=== PATIENT | female | born 1945 | race Caucasian/White ===

== ENCOUNTER 2021-01-25 16:40 | Inpatient (IN) ==
[2021-01-25] MEDS ORDERED: POTASSIUM CHLORIDE 20 MEQ TABLET PO PRN ×2 (16:47)
[2021-01-25] MEDS ORDERED: ACETAMINOPHEN 325 MG TABLET PO PRN (16:47)
[2021-01-25] MEDS ORDERED: IPRATROPIUM/ALBUTEROL 3 ML AMPUL.NEB NEB PRN (16:47)
[2021-01-25] MEDS ORDERED: MAGNESIUM SULFATE 2 GM/50 ML BAG IV PRN (16:47)
[2021-01-25] MEDS ORDERED: SENNOSIDES 1 TABLET PO PRN (16:47)
[2021-01-25] MEDS ORDERED: POTASSIUM CHLORIDE 40 MEQ in DEXTROSE 5% IN WATER 500 ML IV PRN (16:47)
[2021-01-25] MEDS ORDERED: POLYETHYLENE GLYCOL 3350 17 GM PACKET PO PRN (16:47)
--- NOTE | 2021-01-25 16:47 | Internal Med History&Physical ---
HPI History of Present Illness Patient information: Note initiated : 01/25/21 at 4:45 pm Service Date, if different from initiated Date: [] Patient: Marilyn Dunbar a 75 y/o F admitted on for Nausea/vomiting. Chief Complaint: [] History of present illness: Ms. Dunbar is a 75 year old F Presented to [facility] this morning with nausea vomiting. No diarrhea. No coughing chest pain shortness of breath. No altered mental status. Extensive work-up in the ED undertaken with the only lab abnormalities being a mild leukocytosis of 13 and an elevated lactate of about 2.9-3.0. CTA of the chest as well as CT of the abdomen pelvis was unremarkable for any acute pathology. Vital signs stable. Mildly hypoxic at 88 placed on oxygen in the ED. Patient states that she got back from trip from [place] on the and she has been exhausted since then. Yesterday evening she had a poor appetite but otherwise felt okay. This morning she woke up she had a bowel movement and then started on some nausea vomiting. She denies stomach pain. Denies fever chills. 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 Review of Systems: Pertinent positives as above. Denies headache/fever/chills/chest or abdominal pain/cough/dyspnea/diarrhea. 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 (Acute) Muscle weakness of left upper extremity (Chronic) Fatigue (Chronic) Arthralgia (Chronic) Hyperlipidemia (Chronic) Vitamin D deficiency (Chronic) Bradycardia (Chronic) Arrhythmia (Chronic) Encounter for long-term (current) use of other medications (Chronic) GERD (gastroesophageal reflux disease) (Chronic) Varicose veins of other specified sites (Chronic) Hypothyroidism (Chronic) Cyst of left breast (Chronic) Cervical strain (Chronic) Smoker (Chronic) Diverticulitis (Chronic) Adenocarcinoma, colon (Chronic) Insomnia (Chronic) Carcinoma of colon (Chronic) Encounter for long-term (current) use of medications (Chronic) Cerebral infarction due to unspecified occlusion or stenosis of right middle cerebral artery (Chronic) HTN (hypertension) (Chronic) Chronic kidney disease (CKD), stage II (mild) (Chronic) Allergic rhinitis (Chronic) Numbness and tingling sensation of skin (Chronic) Depression (Chronic) Stress (Chronic) Benign neoplasm of transverse colon (Chronic) Ankle pain, left (Chronic) Weakness of left side of body (Chronic) Cataract, secondary obscuring vision (Chronic) Primary open-angle glaucoma, bilateral, mild stage (Chronic) Other localized visual field defect, bilateral (Chronic) Neuropathy (Chronic) Pseudophakia (Chronic) Spasticity (Chronic) Medical History (Updated 10/20/20 @ 20:49 by ED Ahn) Adenocarcinoma, colon Allergic rhinitis Ankle pain, left Arrhythmia Arthralgia Benign neoplasm of transverse colon Bradycardia Carcinoma of colon Cataract, secondary obscuring vision bilateral Cerebral infarction due to unspecified occlusion or stenosis of right middle cerebral artery Cervical strain with radiculopathy Chronic kidney disease (CKD), stage II (mild) Cyst of left breast Depression Diverticulitis Encounter for long-term (current) use of medications Encounter for long-term (current) use of other medications Fatigue GERD (gastroesophageal reflux disease) History of stroke (~10/2016) Right side stroke with left sided weakness in arm and leg HTN (hypertension) Hyperlipidemia Hypothyroidism Insomnia Neuropathy Numbness and tingling sensation of skin Other localized visual field defect, bilateral Primary open-angle glaucoma, bilateral, mild stage Pseudophakia Smoker Spasticity Stress Varicose veins of other specified sites Vitamin D deficiency Weakness of left side of body Surgical History History of bunionectomy of left great toe (~03/2011) Hx of section Hx of colonoscopy 01/10/2013 - lesions of colon, CT scan at [facility] 02/16/2018 - Adenomatous transverse colon polyp, repeat 3 yrs Hx of foot surgery (~11/2010) Left foot surgery, left sciatic pain radiates to left leg, after surgery 11/19 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 Family History Sister Cancer Mother Dementia Heart failure Social History marital status: MEDS/ALLERGIES Home Medications and Allergies Home Medications Medication Instructions Recorded Confirmed Type acetaminophen 500 mg capsule 500 mg PO QID PRN cap 03/17/19 10/15/20 History diclofenac sodium 1 % topical gel 2 g TOPICAL QID 03/17/19 10/15/20 History travoprost 0.004 % eye drops 1 drp OPHTHALMIC QHS ml 03/17/19 10/15/20 History benzonatate 100 mg capsule 200 mg PO TID #60 cap 09/08/19 10/15/20 Rx baclofen 20 mg tablet 20 mg PO BID #60 tab 12/25/19 10/15/20 Rx clopidogrel 75 mg tablet 75 mg PO QDAY #90 tab 03/13/20 10/15/20 Rx alprazolam 0.25 mg tablet 0.25 mg PO Q8H PRN #30 tab 06/28/20 10/15/20 Rx citalopram 20 mg tablet See Rx Instructions .ROUTE 07/08/20 10/15/20 Rx .COMPLEX #180 tab albuterol sulfate 90 mcg/actuation 2 puff INHALATION QID PRN #8 g 10/15/20 10/15/20 Rx aerosol inhaler lorazepam 0.5 mg tablet 1 mg PO QHS PRN #30 tab 10/15/20 10/15/20 Rx tramadol 50 mg tablet 50 mg PO QID #120 tab 10/15/20 10/15/20 Rx atorvastatin 20 mg tablet See Rx Instructions .ROUTE 11/27/20 Rx .COMPLEX #90 tab losartan 50 mg tablet See Rx Instructions .ROUTE 11/27/20 Rx .COMPLEX #90 tab aripiprazole 2 mg tablet See Rx Instructions .ROUTE 12/04/20 Rx .COMPLEX #30 tab gabapentin 600 mg tablet See Rx Instructions .ROUTE 01/07/21 Rx .COMPLEX #120 tab liothyronine 5 mcg tablet See Rx Instructions .ROUTE 01/10/21 Rx .COMPLEX #90 tab Allergies Allergy/AdvReac Type Severity Reaction Status Date / Time No Known Drug Allergies Allergy Verified 10/15/20 09:05 EXAM Constitutional Exam: General: Alert, Awake, No acute Distress Eyes/N/T: EOMI, PERRL, dry MM Head/Neck: neck supple, normocephalic atraumatic CV: RRR, No murmurs, normal s1/s2 Pulm: Clear b/l, no wheezing/rhonchi/rales Abd: soft, nontender, +BS x4 Ext: no clubbing/cyanosis/edema Neuro: Alert, CN 2-12 grossly intact, chronic left hemiplegia Skin: warm/dry A/P Narrative A/P Narrative: A: *N/V: Suspect acute gastroenteritis *Volume depletion: *Mild lactic acidosis: 2/2 above -UA with ketones *Hypoxia, mild: possible that she aspirated during n/v -CTA chest no acute path *CKD II: *Chr pain/neuropathy: *h/o CVA w/ residual Left hemiplegia: *Depression/anxiety: *HTN: *Hypothyroidism: TSH 8.6, pending free T4 P: -IVF, f/u [place] -hold abx for now, pending man diff/pct/BC - -Free T4 -cont Statin/plavix -cont psych meds -cont losartan -PT/OT -ppx: Lovenox Time Spent With Patient Time: Total time spent is greater than 50% in coordination of care (as documented) at patient's floor/unit and/or counseling patient:
[2021-01-25] MEDS ORDERED: 0.9 % SODIUM CHLORIDE 1,000 ML IV SCH (17:00)
[2021-01-25] MEDS ORDERED: diphenhydrAMINE 50 MG/ML VIAL IV PRN (18:18)
[2021-01-25] MEDS ORDERED: METOCLOPRAMIDE 10 MG/2 ML VIAL IV PRN (18:18)
[2021-01-25] MEDS ORDERED: LORazepam 2 MG/ML VIAL IV PRN (18:18)
--- NOTE | 2021-01-25 18:20 | Internal Med History&Physical ---
HPI History of Present Illness Patient information: Note initiated : 01/25/21 at 6:20 pm Service Date, if different from initiated Date: [] Patient: Marilyn Dunbar a 75 y/o F admitted on 01/25/21 for Nausea/vomiting. Chief Complaint: [] History of present illness: Ms. Dunbar is a 75 year old F History of present illness: Ms. Dunbar is a 75 year old F Presented to [facility] this morning with nausea vomiting. No diarrhea. No coughing chest pain shortness of breath. No altered mental status. Extensive work-up in the ED undertaken with the only lab abnormalities being a mild leukocytosis of 13 and an elevated lactate of about 2.9-3.0. CTA of the chest as well as CT of the abdomen pelvis was unremarkable for any acute pathology. Vital signs stable. Mildly hypoxic at 88 placed on oxygen in the ED. Patient states that she got back from trip from [place] on the and she has been exhausted since then. Yesterday evening she had a poor appetite but otherwise felt okay. This morning she woke up she had a bowel movement and then started on some nausea vomiting. She denies stomach pain. Denies fever chills. 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 Review of Systems: Pertinent positives as above. Denies headache/fever/chills/chest or abdominal pain/cough/dyspnea/diarrhea. 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 (Acute) Muscle weakness of left upper extremity (Chronic) Fatigue (Chronic) Arthralgia (Chronic) Hyperlipidemia (Chronic) Vitamin D deficiency (Chronic) Bradycardia (Chronic) Arrhythmia (Chronic) Encounter for long-term (current) use of other medications (Chronic) GERD (gastroesophageal reflux disease) (Chronic) Varicose veins of other specified sites (Chronic) Hypothyroidism (Chronic) Cyst of left breast (Chronic) Cervical strain (Chronic) Smoker (Chronic) Diverticulitis (Chronic) Adenocarcinoma, colon (Chronic) Insomnia (Chronic) Carcinoma of colon (Chronic) Encounter for long-term (current) use of medications (Chronic) Cerebral infarction due to unspecified occlusion or stenosis of right middle cerebral artery (Chronic) HTN (hypertension) (Chronic) Chronic kidney disease (CKD), stage II (mild) (Chronic) Allergic rhinitis (Chronic) Numbness and tingling sensation of skin (Chronic) Depression (Chronic) Stress (Chronic) Benign neoplasm of transverse colon (Chronic) Ankle pain, left (Chronic) Weakness of left side of body (Chronic) Cataract, secondary obscuring vision (Chronic) Primary open-angle glaucoma, bilateral, mild stage (Chronic) Other localized visual field defect, bilateral (Chronic) Neuropathy (Chronic) Pseudophakia (Chronic) Spasticity (Chronic) Medical History (Updated 10/20/20 @ 20:49 by ED Ahn) Adenocarcinoma, colon Allergic rhinitis Ankle pain, left Arrhythmia Arthralgia Benign neoplasm of transverse colon Bradycardia Carcinoma of colon Cataract, secondary obscuring vision bilateral Cerebral infarction due to unspecified occlusion or stenosis of right middle cerebral artery Cervical strain with radiculopathy Chronic kidney disease (CKD), stage II (mild) Cyst of left breast Depression Diverticulitis Encounter for long-term (current) use of medications Encounter for long-term (current) use of other medications Fatigue GERD (gastroesophageal reflux disease) History of stroke (~10/2016) Right side stroke with left sided weakness in arm and leg HTN (hypertension) Hyperlipidemia Hypothyroidism Insomnia Neuropathy Numbness and tingling sensation of skin Other localized visual field defect, bilateral Primary open-angle glaucoma, bilateral, mild stage Pseudophakia Smoker Spasticity Stress Varicose veins of other specified sites Vitamin D deficiency Weakness of left side of body Surgical History History of bunionectomy of left great toe (~03/2011) Hx of section Hx of colonoscopy 01/10/2013 - lesions of colon, CT scan at [facility] 02/16/2018 - Adenomatous transverse colon polyp, repeat 3 yrs Hx of foot surgery (~11/2010) Left foot surgery, left sciatic pain radiates to left leg, after surgery 11/19 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 Family History Sister Cancer Mother Dementia Heart failure Social History marital status: MEDS/ALLERGIES Home Medications and Allergies Home Medications Medication Instructions Recorded Confirmed Type acetaminophen 500 mg capsule 500 mg PO QID PRN cap 03/17/19 10/15/20 History diclofenac sodium 1 % topical gel 2 g TOPICAL QID 03/17/19 10/15/20 History travoprost 0.004 % eye drops 1 drp OPHTHALMIC QHS ml 03/17/19 10/15/20 History benzonatate 100 mg capsule 200 mg PO TID #60 cap 09/08/19 10/15/20 Rx baclofen 20 mg tablet 20 mg PO BID #60 tab 12/25/19 10/15/20 Rx clopidogrel 75 mg tablet 75 mg PO QDAY #90 tab 03/13/20 10/15/20 Rx alprazolam 0.25 mg tablet 0.25 mg PO Q8H PRN #30 tab 06/28/20 10/15/20 Rx citalopram 20 mg tablet See Rx Instructions .ROUTE 07/08/20 10/15/20 Rx .COMPLEX #180 tab albuterol sulfate 90 mcg/actuation 2 puff INHALATION QID PRN #8 g 10/15/20 10/15/20 Rx aerosol inhaler lorazepam 0.5 mg tablet 1 mg PO QHS PRN #30 tab 10/15/20 10/15/20 Rx tramadol 50 mg tablet 50 mg PO QID #120 tab 10/15/20 10/15/20 Rx atorvastatin 20 mg tablet See Rx Instructions .ROUTE 11/27/20 Rx .COMPLEX #90 tab losartan 50 mg tablet See Rx Instructions .ROUTE 11/27/20 Rx .COMPLEX #90 tab aripiprazole 2 mg tablet See Rx Instructions .ROUTE 12/04/20 Rx .COMPLEX #30 tab gabapentin 600 mg tablet See Rx Instructions .ROUTE 01/07/21 Rx .COMPLEX #120 tab liothyronine 5 mcg tablet See Rx Instructions .ROUTE 01/10/21 Rx .COMPLEX #90 tab Allergies Allergy/AdvReac Type Severity Reaction Status Date / Time No Known Drug Allergies Allergy Verified 10/15/20 09:05 EXAM Constitutional Exam: General: Alert, Awake, No acute Distress Eyes/N/T: EOMI, PERRL, dry MM Head/Neck: neck supple, normocephalic atraumatic CV: RRR, No murmurs, normal s1/s2 Pulm: Clear b/l, no wheezing/rhonchi/rales Abd: soft, nontender, +BS x4 Ext: no clubbing/cyanosis/edema Neuro: Alert, CN 2-12 grossly intact, chronic left hemiplegia Skin: warm/dry A/P Narrative A/P Narrative: A: *N/V: Suspect acute gastroenteritis *Volume depletion: *Mild lactic acidosis: 2/2 above -UA with ketones *Hypoxia, mild: possible that she aspirated during n/v -CTA chest no acute path *CKD II: *Chr pain/neuropathy: *h/o CVA w/ residual Left hemiplegia: *Depression/anxiety: *HTN: *Hypothyroidism: TSH 8.6, pending free T4 P: -IVF, f/u [place] -hold abx for now, pending man diff/pct/BC - -Free T4 -cont Statin/plavix -cont psych meds -cont losartan -PT/OT -ppx: Lovenox full code Time Spent With Patient Time: Total time spent is greater than 50% in coordination of care (as documented) at patient's floor/unit and/or counseling patient:
[2021-01-25 19:20] LABS: Lymphocytes % 5 % (15-49); Monocytes % (Manual) 3 % (1-12); Platelet Estimate NORMAL (Normal); RBC Morphology NORMAL (Normal); Reactive Lymphocytes 2 % (0-2); Segmented Neutrophils % 90 % (38-78)
[2021-01-25 19:23] LABS: Free T4 (Free Thyroxine) 1.16 ng/dL (0.93-1.70)
[2021-01-25] MEDS: ONDANSETRON 4 MG/2 ML VIAL IV PRN (19:33)
[2021-01-25] MEDS ORDERED: ALPRAZolam 0.25 MG TABLET PO PRN (19:42)
[2021-01-25] MEDS ORDERED: traMADol 50 MG TABLET PO SCH (21:00)
[2021-01-25] MEDS ORDERED: GABAPENTIN 600 MG PO SCH (21:00)
[2021-01-25] MEDS: DOCUSATE SODIUM 100 MG CAPSULE PO SCH (21:45)
[2021-01-25] MEDS: 0.9 % SODIUM CHLORIDE 10 ML SYRINGE IV SCH (22:22)
[2021-01-25] MEDS: ATORVASTATIN 20 MG TABLET PO SCH (22:23)
[2021-01-26] MEDS: 0.9 % SODIUM CHLORIDE 10 ML SYRINGE IV SCH ×3 (04:44→22:02)
--- NOTE | 2021-01-26 07:25 | Internal Med Progress Note ---
SUBJECTIVE Subjective Patient information: Note initiated : 01/26/21 at 7:20 am Service Date, if different from initiated Date: [] Patient: Marilyn Dunbar a 75 y/o F admitted on 01/25/21 for Nausea/vomiting. Chief Complaint: [] Interval history: History of present illness: Ms. Dunbar is a 75 year old F Presented to [facility] this morning with nausea vomiting. No diarrhea. No coughing chest pain shortness of breath. No altered mental status. Extensive work-up in the ED undertaken with the only lab abnormalities being a mild leukocytosis of 13 and an elevated lactate of about 2.9-3.0. CTA of the chest as well as CT of the abdomen pelvis was unremarkable for any acute pathology. Vital signs stable. Mildly hypoxic at 88 placed on oxygen in the ED. Patient states that she got back from trip from [place] on the and she has been exhausted since then. Yesterday evening she had a poor appetite but otherwise felt okay. This morning she woke up she had a bowel movement and then started on some nausea vomiting. She denies stomach pain. Denies fever chills. 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 01/26 Patient reports feeling a little bit better. No vomiting but does have some nausea. Often asks for Ativan. He has a cough which is dry she says, she denies shortness of breath. Nurse reported sats in the high 80s on 3 L but her chest sounds clear while double check the pulse ox. Chest x-ray pending. Elevated white blood cell count but no bandemia. She does have some pleuritic chest pain right side worse with cough and deep breath. Review of Systems: denies headache/fever/chills/vomiting/ abdominal pain/diarrhea. Otherwise see above. Constitutional Vitals: Vital Signs Temp Pulse Resp BP Pulse Ox 98.4 F 118 H 18 124/97 89 L 01/26/21 04:00 01/26/21 04:00 01/26/21 04:00 01/26/21 04:00 01/26/21 04:00 Period Temp Pulse Resp BP Sys/Barakat Pulse Ox Last 24 Hr 97.3 F-98.4 F 68-118 16-18 97-144/60-97 89-93 Intake and Output 01/25/21 01/26/21 01/26/21 21:59 05:59 13:59 Intake Total 1200 Output Total 203 Balance 997 Weight 68.039 kg Intake & Output: Intake & Output 01/25/21 01/26/21 01/26/21 21:59 05:59 13:59 Intake Total 1200 Output Total 203 Balance 997 Weight 68.039 kg Intake: Oral 1200 Output: Void Amount 200 # of times incontinent of urine 3 Other: Urine Appearance Clear Urine Color Dark Yellow Urine Odor Normal Exam: General: Alert, Awake, No acute Distress Eyes/N/T: EOMI, Head/Neck: neck supple, CV: RRR, No murmurs, chest wall tenderness right side Pulm: Clear b/l, no wheezing/rhonchi/rales Abd: soft, nontender, +BS x4 Ext: no clubbing/cyanosis/edema Neuro: Alert, moves all extremities, chronic left hemiplegia Skin: warm/dry OBJ DATA Labs CBC & Chem 7: 01/26/21 06:00 01/26/21 06:00 Labs: Abnormal Lab Results 01/25/21 01/25/21 01/25/21 18:30 18:29 18:29 Seg Neutrophils % 90 H Lymphocytes % 5 L C-Reactive Protein 1.00 H Procalcitonin 0.13 H Meds: Medications Acetaminophen (Acetaminophen 325 Mg Tablet) 650 mg PO Q6HP PRN PRN Reason: PAIN/FEVER > 101 Albuterol/Ipratropium (Ipratropium/Albuterol 3 Ml Ampul.Neb) 3 ml NEB Q4HP PRN PRN Reason: Shortness Of Breath Alprazolam (Alprazolam 0.25 Mg Tablet) 0.25 mg PO Q8H PRN PRN Reason: anxiety Atorvastatin Calcium (Atorvastatin 20 Mg Tablet) 20 mg PO HS DEJUAN Last Admin: 01/25/21 22:23 Dose: Not Given Documented by: Citalopram Hydrobromide (Citalopram 20 Mg Tablet) 20 mg PO DAILY DEJUAN Clopidogrel Bisulfate (Clopidogrel 75 Mg Tablet) 75 mg PO QDAY DEJUAN Diphenhydramine HCl (Diphenhydramine 50 Mg/Ml Vial) 25 mg IV Q4-6HP PRN PRN Reason: Nausea Last Admin: 01/26/21 01:45 Dose: 25 mg Documented by: Docusate Sodium (Docusate Sodium 100 Mg Capsule) 100 mg PO BID [facility] Last Admin: 01/25/21 21:45 Dose: Not Given Documented by: Enoxaparin Sodium (Enoxaparin 40 Mg/0.4 Ml Syringe) 40 mg SQ DAILY [facility] Potassium Chloride 40 meq/ (Dextrose) 520 mls @ 130 mls/hr IV UD PRN PRN Reason: Potassium < 3 Magnesium Sulfate (Magnesium Sulfate) 2 gm in 50 mls @ 50 mls/hr IV UD PRN PRN Reason: Magnesium </= 1.6 Liothyronine Sodium (Liothyronine 5 Mcg Tablet) 0 mcg PO .COMPLEX [facility] Lorazepam (Lorazepam 2 Mg/Ml Vial) 0.5 mg IV Q6HP PRN PRN Reason: ANXIETY/SEDATION Losartan Potassium (Losartan 50 Mg Tablet) 0 mg PO .COMPLEX [facility] Metoclopramide HCl (Metoclopramide 10 Mg/2 Ml Vial) 10 mg IV Q6HP PRN PRN Reason: Nausea And Vomiting Non-Formulary Medication (Aripiprazole) 0 mg .ROUTE .COMPLEX [facility] Non-Formulary Medication (Baclofen) 20 mg PO BID PRN PRN Reason: Restless Leg(S) Non-Formulary Medication (Gabapentin [Neurontin]) 600 mg PO QID [facility] Last Admin: 01/25/21 22:41 Dose: Not Given Documented by: Ondansetron HCl (Ondansetron 4 Mg/2 Ml Vial) 4 mg IV Q4HP PRN PRN Reason: Nausea And Vomiting Last Admin: 01/25/21 19:33 Dose: 4 mg Documented by: Polyethylene Glycol (Polyethylene Glycol 3350 17 Gm Packet) 17 gm PO DAILYP PRN PRN Reason: Constipation Potassium Chloride (Potassium Chloride 20 Meq Tablet) 40 meq PO UD PRN PRN Reason: Potssium is 3-3.5 Potassium Chloride (Potassium Chloride 20 Meq Tablet) 40 meq PO UD PRN PRN Reason: Potassium < 3 Senna (Sennosides 1 Tablet) 2 tab PO DAILYP PRN PRN Reason: Constipation Sodium Chloride (0.9 % Sodium Chloride 10 Ml Syringe) 10 ml IV Q8 [facility] Last Admin: 01/26/21 04:44 Dose: Not Given Documented by: Tramadol HCl (Tramadol 50 Mg Tablet) 50 mg PO QID [facility]; Protocol Last Admin: 01/25/21 22:41 Dose: Not Given Documented by: Travoprost (Travoprost Ophth Drops Bottle 2.5ml) gtt OU QHS DEJUAN A/P Narrative A/P Narrative: A: *N/V: Suspect acute viral gastroenteritis, pct/crp low *Volume depletion: improved *Mild lactic acidosis: 2/2 above. resolved -UA with ketones *Hypoxia, mild: possible that she aspirated during n/v -CTA chest on admit no acute path -on 3L NC *likely aspiration pneumonitis: *Leukocytosis, no bandemia: ?reactive vs developing PNA. Afebrile, pct low but mildly increased, crp mildly elevated *CKD II: *Chr pain/neuropathy: *h/o CVA w/ residual Left hemiplegia: *Depression/anxiety: *HTN: *Hypothyroidism: TSH 8.6, free T4 wnl, f/u labs outpt, levothyroxine may need to be increased P: -IVF d/c, antiemetics -pending cxr -monitor closely for developing pna -O2 supp (wean), IS/Acapella, -cont Statin/plavix -cont psych meds -cont losartan -PT/OT -ppx: Lovenox full code Time Spent With Patient Time: Total time spent is greater than 50% in coordination of care (as documented) at patient's floor/unit and/or counseling patient: QUALITY Stroke Symptom Onset Unknown: No VTE Deep Vein Thrombosis/Pulmonary Embolism Present on Admission: No
[2021-01-26 07:26] LABS: Hematocrit 43.2 % (36.0-48.0); Hemoglobin 13.8 g/dL (12.0-15.0); Mean Cell Volume 95.6 fL (80.0-100.0); Mean Corpuscular HGB Conc 31.9 g/dL (31.0-36.0); Mean Platelet Volume 11.9 fL (7.4-10.4); Platelet Count 236 K/mcL (140-440); RBC 4.52 M/mcL (4.00-5.20); Red Cell Distribution Width 12.6 % (11.5-14.5); WBC 20.3 K/mcL (4.5-11.0)
[2021-01-26 07:42] LABS: ALT/SGPT 16 U/L (<40); AST/SGOT 37 U/L (<32); Albumin 3.5 gm/dL (3.2-5.2); Albumin/Globulin Ratio 1.3 (1.0-2.3); Alkaline Phosphatase 66 U/L (39-117); Bilirubin,Direct < 0.2 mg/dL (0-0.3); Bilirubin,Total 0.4 mg/dL (0.1-1.0); Blood Urea Nitrogen 26 mg/dL (8-23); Calcium 8.7 mg/dL (8.6-10.4); Carbon Dioxide 17 mmol/L (22-30); Chloride 107 mmol/L (96-108); Globulin 2.6 gm/dL (2.2-3.7); Glomerular Filtration Rate 49; Glucose 114 mg/dL (70-105); Lactate Dehydrogenase 240 U/L (135-225); Phosphorous 3.3 mg/dL (2.5-4.5); Triglycerides 71 mg/dL (<150); Uric Acid 5.9 mg/dL (2.5-8.0)
[2021-01-26] MEDS: TRAVOPROST OPHTH DROPS BOTTLE 2.5ML OU SCH ×2 (07:53→20:26)
[2021-01-26] MEDS ORDERED: BACLOFEN 10 MG TABLET PO PRN (07:56)
[2021-01-26] MEDS ORDERED: traMADol 50 MG TABLET PO PRN (08:00)
[2021-01-26 08:52] LABS: Lymphocytes % 4 % (15-49); Monocytes % (Manual) 5 % (1-12); Platelet Estimate NORMAL (Normal); RBC Morphology NORMAL (Normal); Segmented Neutrophils % 91 % (38-78)
[2021-01-26] MEDS: ENOXAPARIN 40 MG/0.4 ML SYRINGE SQ SCH (09:30)
[2021-01-26] MEDS: GABAPENTIN 300 MG CAPSULE PO SCH ×3 (09:30→20:25)
[2021-01-26] MEDS: CLOPIDOGREL 75 MG TABLET PO SCH (09:30)
[2021-01-26] MEDS: CITALOPRAM 20 MG TABLET PO SCH (09:30)
[2021-01-26] MEDS: DOCUSATE SODIUM 100 MG CAPSULE PO SCH ×2 (09:31→20:25)
--- NOTE | 2021-01-26 13:05 | XRay Report ---
CLINICAL INFORMATION: hypoxia, suspect aspirated with N/V prior to admit COMPARISON: 12/07/2013 FINDINGS: The heart is mildly enlarged. Mediastinum and pulmonary vasculature are normal. Moderate right perihilar infiltrate and smaller patchy left perihilar and left basilar infiltrates appreciated. Mild underlying interstitial disease throughout both lungs is new. Small bilateral pleural effusions noted. IMPRESSION: Moderate right and smaller left perihilar infiltrates. Suspect aspiration Mild cardiomegaly and interstitial disease throughout both lungs suggests edema related to prior episode of CHF. There is no pulmonary vascular congestion to support acute CHF Interpreted and Authenticated by: Izaiah Torres 01/26/21
[2021-01-26] MEDS: ATORVASTATIN 20 MG TABLET PO SCH (20:26)
[2021-01-26] MEDS ORDERED: LIOTHYRONINE 5 MCG TABLET PO SCH (21:00)
[2021-01-26] MEDS ORDERED: LOSARTAN 50 MG TABLET PO SCH (21:00)
[2021-01-27] MEDS: 0.9 % SODIUM CHLORIDE 10 ML SYRINGE IV SCH ×4 (03:34→22:23)
[2021-01-27] MEDS: ONDANSETRON 4 MG/2 ML VIAL IV PRN ×3 (03:34→19:04)
[2021-01-27 06:54] LABS: Hematocrit 40.3 % (36.0-48.0); Mean Cell Volume 97.3 fL (80.0-100.0); Mean Corpuscular HGB Conc 32.3 g/dL (31.0-36.0); Mean Platelet Volume 11.7 fL (7.4-10.4); Platelet Count 198 K/mcL (140-440); RBC 4.14 M/mcL (4.00-5.20); Red Cell Distribution Width 12.7 % (11.5-14.5); WBC 18.2 K/mcL (4.5-11.0)
[2021-01-27 07:19] LABS: ALT/SGPT 20 U/L (<40); AST/SGOT 39 U/L (<32); Albumin 3.5 gm/dL (3.2-5.2); Albumin/Globulin Ratio 1.3 (1.0-2.3); Alkaline Phosphatase 65 U/L (39-117); Bilirubin,Direct < 0.2 mg/dL (0-0.3); Bilirubin,Total 0.6 mg/dL (0.1-1.0); Blood Urea Nitrogen 34 mg/dL (8-23); Calcium 8.4 mg/dL (8.6-10.4); Carbon Dioxide 20 mmol/L (22-30); Chloride 99 mmol/L (96-108); Globulin 2.6 gm/dL (2.2-3.7); Glomerular Filtration Rate 62; Glucose 110 mg/dL (70-105); Lactate Dehydrogenase 295 U/L (135-225); Phosphorous 3.1 mg/dL (2.5-4.5); Triglycerides 103 mg/dL (<150); Uric Acid 5.8 mg/dL (2.5-8.0)
[2021-01-27 07:50] LABS: Lymphocytes % 6 % (15-49); Platelet Estimate NORMAL (Normal); RBC Morphology NORMAL (Normal); Segmented Neutrophils % 94 % (38-78)
--- NOTE | 2021-01-27 07:57 | Internal Med Progress Note ---
SUBJECTIVE Subjective Patient information: Note initiated : 01/27/21 at 7:51 am Service Date, if different from initiated Date: [] Patient: Marilyn Dunbar a 75 y/o F admitted on 01/25/21 for Nausea/vomiting. Chief Complaint: [] Interval history: History of present illness: Ms. Dunbar is a 75 year old F Presented to [facility] this morning with nausea vomiting. No diarrhea. No coughing chest pain shortness of breath. No altered mental status. Extensive work-up in the ED undertaken with the only lab abnormalities being a mild leukocytosis of 13 and an elevated lactate of about 2.9-3.0. CTA of the chest as well as CT of the abdomen pelvis was unremarkable for any acute pathology. Vital signs stable. Mildly hypoxic at 88 placed on oxygen in the ED. Patient states that she got back from trip from [place] on the and she has been exhausted since then. Yesterday evening she had a poor appetite but otherwise felt okay. This morning she woke up she had a bowel movement and then started on some nausea vomiting. She denies stomach pain. Denies fever chills. 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 01/26 Patient reports feeling a little bit better. No vomiting but does have some nausea. Often asks for Ativan. He has a cough which is dry she says, she denies shortness of breath. Nurse reported sats in the high 80s on 3 L but her chest sounds clear while double check the pulse ox. Chest x-ray pending. Elevated white blood cell count but no bandemia. She does have some pleuritic chest pain right side worse with cough and deep breath. 01/27 has some nausea but no vomiting. States she has not had a bowel movement a couple days and she typically has an every day. Mild nonproductive cough. White blood cell count slightly improved today. Patient afebrile. Review of Systems: denies headache/fever/chills/vomiting/ abdominal pain/diarrhea. Otherwise see above. Constitutional Vitals: Vital Signs Temp Pulse Resp BP Pulse Ox 99.0 F 108 H 16 135/91 95 01/27/21 04:00 01/27/21 04:00 01/27/21 04:00 01/27/21 04:00 01/27/21 04:00 Period Temp Pulse Resp BP Sys/Barakat Pulse Ox Last 24 Hr 98.3 F-99.0 F 78-108 14-20 119-135/79-91 88-97 Intake and Output 01/26/21 01/27/21 01/27/21 21:59 05:59 13:59 Intake Total 250 800 Output Total 600 Balance 250 200 Weight 71.804 kg Intake & Output: Intake & Output 01/26/21 01/27/21 01/27/21 21:59 05:59 13:59 Intake Total 250 800 Output Total 600 Balance 250 200 Weight 71.804 kg Intake: Oral 250 800 Output: Void Amount 600 Other: Meal Dinner Percent of Meal Consumed 25% Feeding Ability Independent Urine Appearance Clear Urine Color Dark Yellow Urine Odor Normal Exam: General: Alert, Awake, No acute Distress Eyes/N/T: EOMI, Head/Neck: neck supple, CV: RRR, No murmurs, chest wall tenderness right side Pulm: mild fine rales b/l, no wheezing/rhonchi Abd: soft, nontender, +BS x4 Ext: no clubbing/cyanosis/edema Neuro: Alert, moves all extremities, chronic left hemiplegia Skin: warm/dry OBJ DATA Labs CBC & Chem 7: 01/27/21 05:59 01/27/21 05:59 Labs: Abnormal Lab Results 01/27/21 01/27/21 01/27/21 06:00 05:59 05:59 WBC 18.2 H MPV 11.7 H Seg Neutrophils % 94 H Lymphocytes % 6 L Sodium 131 L Carbon Dioxide 20 L BUN 34 H Glucose 110 H Calcium 8.4 L AST 39 H Lactate Dehydrogenase 295 H C-Reactive Protein 4.60 H Procalcitonin 0.10 H 01/26/21 01/26/21 01/26/21 06:00 06:00 06:00 WBC 20.3 H MPV 11.9 H Seg Neutrophils % 91 H Lymphocytes % 4 L Sodium Carbon Dioxide BUN Glucose Calcium AST Lactate Dehydrogenase C-Reactive Protein 2.00 H Procalcitonin 0.16 H 01/26/21 01/25/21 01/25/21 06:00 18:30 18:29 WBC MPV Seg Neutrophils % 90 H Lymphocytes % 5 L Sodium Carbon Dioxide 17 L BUN 26 H Glucose 114 H Calcium AST 37 H Lactate Dehydrogenase 240 H C-Reactive Protein 1.00 H Procalcitonin 01/25/21 18:29 WBC MPV Seg Neutrophils % Lymphocytes % Sodium Carbon Dioxide BUN Glucose Calcium AST Lactate Dehydrogenase C-Reactive Protein Procalcitonin 0.13 H Meds: Medications Acetaminophen (Acetaminophen 325 Mg Tablet) 650 mg PO Q6HP PRN PRN Reason: PAIN/FEVER > 101 Albuterol/Ipratropium (Ipratropium/Albuterol 3 Ml Ampul.Neb) 3 ml NEB Q4HP PRN PRN Reason: Shortness Of Breath Alprazolam (Alprazolam 0.25 Mg Tablet) 0.25 mg PO Q8HP PRN PRN Reason: anxiety Atorvastatin Calcium (Atorvastatin 20 Mg Tablet) 20 mg PO [facility] Last Admin: 01/26/21 20:26 Dose: 20 mg Documented by: Baclofen (Baclofen 10 Mg Tablet) 20 mg PO BIDP PRN PRN Reason: Restless Leg(S) Citalopram Hydrobromide (Citalopram 20 Mg Tablet) 20 mg PO DAILY [facility] Last Admin: 01/26/21 09:30 Dose: 20 mg Documented by: Clopidogrel Bisulfate (Clopidogrel 75 Mg Tablet) 75 mg PO QDAY [facility] Last Admin: 01/26/21 09:30 Dose: 75 mg Documented by: Diphenhydramine HCl (Diphenhydramine 50 Mg/Ml Vial) 25 mg IV Q4-6HP PRN PRN Reason: Nausea Last Admin: 01/26/21 01:45 Dose: 25 mg Documented by: Docusate Sodium (Docusate Sodium 100 Mg Capsule) 100 mg PO BID [facility] Last Admin: 01/26/21 20:25 Dose: 100 mg Documented by: Enoxaparin Sodium (Enoxaparin 40 Mg/0.4 Ml Syringe) 40 mg SQ DAILY [facility] Last Admin: 01/26/21 09:30 Dose: 40 mg Documented by: Gabapentin (Gabapentin 300 Mg Capsule) 300 mg PO TID [facility] Last Admin: 01/26/21 20:25 Dose: 300 mg Documented by: Potassium Chloride 40 meq/ (Dextrose) 520 mls @ 130 mls/hr IV UD PRN PRN Reason: Potassium < 3 Magnesium Sulfate (Magnesium Sulfate) 2 gm in 50 mls @ 50 mls/hr IV UD PRN PRN Reason: Magnesium </= 1.6 Liothyronine Sodium (Liothyronine 5 Mcg Tablet) 5 mcg PO HS [facility] Last Admin: 01/26/21 20:25 Dose: 5 mcg Documented by: Lorazepam (Lorazepam 2 Mg/Ml Vial) 0.5 mg IV Q6HP PRN PRN Reason: ANXIETY/SEDATION Last Admin: 01/26/21 09:29 Dose: 0.5 mg Documented by: Losartan Potassium (Losartan 50 Mg Tablet) 50 mg PO [facility] Last Admin: 01/26/21 20:25 Dose: 50 mg Documented by: Metoclopramide HCl (Metoclopramide 10 Mg/2 Ml Vial) 10 mg IV Q6HP PRN PRN Reason: Nausea And Vomiting Ondansetron HCl (Ondansetron 4 Mg/2 Ml Vial) 4 mg IV Q4HP PRN PRN Reason: Nausea And Vomiting Last Admin: 01/27/21 03:34 Dose: 4 mg Documented by: Aripiprazole 2 Mg (Tablet) 1 dose PO DAILY [facility] Last Admin: 01/26/21 12:37 Dose: Not Given Documented by: Polyethylene Glycol (Polyethylene Glycol 3350 17 Gm Packet) 17 gm PO DAILYP PRN PRN Reason: Constipation Potassium Chloride (Potassium Chloride 20 Meq Tablet) 40 meq PO UD PRN PRN Reason: Potssium is 3-3.5 Potassium Chloride (Potassium Chloride 20 Meq Tablet) 40 meq PO UD PRN PRN Reason: Potassium < 3 Senna (Sennosides 1 Tablet) 2 tab PO DAILYP PRN PRN Reason: Constipation Sodium Chloride (0.9 % Sodium Chloride 10 Ml Syringe) 10 ml IV Q8 [facility] Last Admin: 01/27/21 04:11 Dose: Not Given Documented by: Tramadol HCl (Tramadol 50 Mg Tablet) 50 mg PO QIDP PRN; Protocol PRN Reason: Pain Travoprost (Travoprost Ophth Drops Bottle 2.5ml) 1 gtt OU QHS [facility] Last Admin: 01/26/21 20:26 Dose: Not Given Documented by: A/P Narrative A/P Narrative: A: *N/V: Suspect acute viral gastroenteritis, pct/crp low -improving *Volume depletion: improved *Mild lactic acidosis: 2/2 above. resolved -UA with ketones *Hypoxia: likely aspirated during n/v -CTA chest on admit no acute path, f/u CXR with interstitial opacities and infiltrate R>L -on 2L NC *Aspiration pneumonitis: *Leukocytosis, no bandemia: Reactive vs developing PNA. Afebrile, pct low, crp elevated *CKD II: *Chr pain/neuropathy: *h/o CVA w/ residual Left hemiplegia: *Depression/anxiety: *HTN: *Hypothyroidism: TSH 8.6, free T4 wnl, f/u labs outpt, levothyroxine may need to be increased *suspect copd based in imaging and history P: -IVF d/c, antiemetics -monitor closely for developing pna -O2 supp (wean), IS/Acapella, -RT for home O2 eval prior to d/c -cont Statin/plavix -cont psych meds -cont losartan -PT/OT -ppx: Lovenox full code Time Spent With Patient Time: Total time spent is greater than 50% in coordination of care (as documented) at patient's floor/unit and/or counseling patient: QUALITY Stroke Symptom Onset Unknown: No VTE Deep Vein Thrombosis/Pulmonary Embolism Present on Admission: No
[2021-01-27] MEDS: DOCUSATE SODIUM 100 MG CAPSULE PO SCH ×2 (08:26→22:22)
[2021-01-27] MEDS: GABAPENTIN 300 MG CAPSULE PO SCH ×3 (08:26→22:22)
[2021-01-27] MEDS: CITALOPRAM 20 MG TABLET PO SCH (08:26)
[2021-01-27] MEDS: CLOPIDOGREL 75 MG TABLET PO SCH (08:26)
[2021-01-27] MEDS: ENOXAPARIN 40 MG/0.4 ML SYRINGE SQ SCH (08:27)
[2021-01-27] MEDS ORDERED: SODIUM CHLORIDE 1 GM TABLET PO SCH ×2 (09:00→21:00)
[2021-01-27] MEDS ORDERED: FLEETS ADULT ENEMA PR PRN ×2 (09:13→20:23)
[2021-01-27] MEDS ORDERED: MAGNESIUM HYDROXIDE 30 ML ORAL.SUSP PO ONE (13:19)
[2021-01-27] MEDS ORDERED: SENNOSIDES/DOCUSATE SODIUM 1 TAB TABLET PO ONE (13:24)
--- NOTE | 2021-01-27 13:59 | XRay Report ---
CLINICAL INFORMATION: constipation or ileus COMPARISON: None. FINDINGS: Stool gas pattern is unremarkable. No free air, soft tissue mass or organomegaly. Known 20 mm calcified fibroid in the central pelvis. A 14 mm calcification noted in the right sacral ala is unchanged from most recent studies. It is likely a bone island. IMPRESSION: No acute disease. 21 mm calcified fibroid in the central pelvis Interpreted and Authenticated by: Izaiah Torres 01/27/21
[2021-01-27] MEDS ORDERED: 0.9 % SODIUM CHLORIDE 500 ML IV ONE (17:24)
[2021-01-27] MEDS ORDERED: cefTRIAXone 2 GM in DEXTROSE 5% IN WATER 50 ML IV SCH (19:15)
[2021-01-27] MEDS ORDERED: METOPROLOL TARTRATE 5 MG/5 ML VIAL IV ONE ×2 (19:20→19:24)
[2021-01-27] MEDS ORDERED: METOPROLOL TARTRATE 5 MG/5 ML VIAL IV PRN (19:30)
[2021-01-27] MEDS ORDERED: IPRATROPIUM/ALBUTEROL 3 ML AMPUL.NEB NEB PRN (20:23)
[2021-01-27] MEDS ORDERED: SENNOSIDES 1 TABLET PO PRN (20:23)
[2021-01-27] MEDS ORDERED: POTASSIUM CHLORIDE 20 MEQ TABLET PO PRN ×2 (20:23)
[2021-01-27] MEDS ORDERED: MAGNESIUM SULFATE 2 GM/50 ML BAG IV PRN (20:23)
[2021-01-27] MEDS ORDERED: diphenhydrAMINE 50 MG/ML VIAL IV PRN (20:23)
[2021-01-27] MEDS ORDERED: POTASSIUM CHLORIDE 40 MEQ in DEXTROSE 5% IN WATER 500 ML IV PRN (20:23)
[2021-01-27] MEDS ORDERED: POLYETHYLENE GLYCOL 3350 17 GM PACKET PO PRN (20:23)
[2021-01-27] MEDS ORDERED: ALPRAZolam 0.25 MG TABLET PO PRN (20:23)
[2021-01-27] MEDS ORDERED: ACETAMINOPHEN 325 MG TABLET PO PRN (20:23)
[2021-01-27] MEDS ORDERED: METOCLOPRAMIDE 10 MG/2 ML VIAL IV PRN (20:23)
[2021-01-27] MEDS ORDERED: BACLOFEN 10 MG TABLET PO PRN (20:23)
[2021-01-27] MEDS ORDERED: metroNIDAZOLE 500 MG TABLET PO SCH (22:00)
[2021-01-27] MEDS ORDERED: cefTRIAXone 2 GM VIAL ONE (22:12)
[2021-01-27] MEDS: LORazepam 2 MG/ML VIAL IV PRN (22:21)
[2021-01-27] MEDS: cefTRIAXone 2 GM in DEXTROSE 5% IN WATER 50 ML IV SCH (22:21)
[2021-01-27] MEDS: ATORVASTATIN 20 MG TABLET PO SCH (22:22)
[2021-01-27] MEDS: metroNIDAZOLE 500 MG TABLET PO SCH (22:22)
[2021-01-27] MEDS: LOSARTAN 50 MG TABLET PO SCH (22:22)
[2021-01-27] MEDS: TRAVOPROST OPHTH DROPS BOTTLE 2.5ML OU SCH (22:24)
[2021-01-27] MEDS: LIOTHYRONINE 5 MCG TABLET PO SCH (22:26)
[2021-01-28] MEDS: ONDANSETRON 4 MG/2 ML VIAL IV PRN ×2 (03:50→13:38)
[2021-01-28] MEDS: METOPROLOL TARTRATE 5 MG/5 ML VIAL IV PRN ×2 (03:50→13:58)
[2021-01-28] MEDS: 0.9 % SODIUM CHLORIDE 10 ML SYRINGE IV SCH ×3 (05:49→22:01)
[2021-01-28] MEDS: metroNIDAZOLE 500 MG TABLET PO SCH ×3 (05:49→22:00)
[2021-01-28] MEDS: LORazepam 2 MG/ML VIAL IV PRN (06:39)
[2021-01-28 06:50] LABS: Basophils # (Auto) 0.01 K/mcL (0.00-0.20); Basophils % (Auto) 0.1 % (0.0-2.0); Eosinophils # (Auto) 0 K/mcL (0.00-0.70); Eosinophils % (Auto) 0 % (0.0-7.0); Hematocrit 38.2 % (36.0-48.0); Hemoglobin 12.6 g/dL (12.0-15.0); Lymphocytes # (Auto) 1.52 K/mcL (1.50-4.80); Mean Cell Volume 94.6 fL (80.0-100.0); Mean Platelet Volume 12.1 fL (7.4-10.4); Monocytes # (Auto) 0.73 K/mcL (0.10-0.90); Monocytes % (Auto) 6.2 % (1.0-12.0); Neutrophils % (Auto) 80.7 % (38.0-78.0); Platelet Count 187 K/mcL (140-440); RBC 4.04 M/mcL (4.00-5.20); Red Cell Distribution Width 12.2 % (11.5-14.5); WBC 11.7 K/mcL (4.5-11.0)
[2021-01-28 07:33] LABS: Blood Urea Nitrogen 36 mg/dL (8-23); Calcium 8.1 mg/dL (8.6-10.4); Carbon Dioxide 19 mmol/L (22-30); Chloride 97 mmol/L (96-108); Glomerular Filtration Rate 62; Glucose 112 mg/dL (70-105)
--- NOTE | 2021-01-28 08:31 | XRay Report ---
HISTORY: Follow-up pulmonary infiltrates FINDINGS: Moderate bilateral pulmonary infiltrates are present. There are predominantly located in a central, perihilar distribution. There are also bands of discoid atelectasis medially in both lung bases. Lateral view shows mild blunting of the posterior costophrenic sulci bilaterally due to very small bilateral pleural effusions. Heart size is normal. Comparison with the prior exam from 01/26/21 shows improvement in the bilateral infiltrates. There were also several curly B lines in the periphery of both lungs on the prior study which have since resolved. IMPRESSION: Improving infiltrates in both lungs. Although this could be due to aspiration pneumonia, congestive heart failure with pulmonary edema is also a consideration. Interpreted and Authenticated by: Carrington Reyes 01/28/21
--- NOTE | 2021-01-28 08:32 | Internal Med Progress Note ---
SUBJECTIVE Subjective Patient information: Note initiated : 01/28/21 at 8:22 am Service Date, if different from initiated Date: [] Patient: Marilyn Dunbar a 75 y/o F admitted on 01/25/21 for Nausea/vomiting. Chief Complaint: [] Interval history: History of present illness: Ms. Dunbar is a 75 year old F Presented to [facility] this morning with nausea vomiting. No diarrhea. No coughing chest pain shortness of breath. No altered mental status. Extensive work-up in the ED undertaken with the only lab abnormalities being a mild leukocytosis of 13 and an elevated lactate of about 2.9-3.0. CTA of the chest as well as CT of the abdomen pelvis was unremarkable for any acute pathology. Vital signs stable. Mildly hypoxic at 88 placed on oxygen in the ED. Patient states that she got back from trip from [place] on the and she has been exhausted since then. Yesterday evening she had a poor appetite but otherwise felt okay. This morning she woke up she had a bowel movement and then started on some nausea vomiting. She denies stomach pain. Denies fever chills. 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 01/26 Patient reports feeling a little bit better. No vomiting but does have some nausea. Often asks for Ativan. He has a cough which is dry she says, she denies shortness of breath. Nurse reported sats in the high 80s on 3 L but her chest sounds clear while double check the pulse ox. Chest x-ray pending. Elevated white blood cell count but no bandemia. She does have some pleuritic chest pain right side worse with cough and deep breath. 01/27 has some nausea but no vomiting. States she has not had a bowel movement a couple days and she typically has an every day. Mild nonproductive cough. White blood cell count slightly improved today. Patient afebrile. 01/28 Patient had A. fib with RVR last night was transferred to the unit. No events overnight other than needing several doses of IV Lopressor. She has some nausea this morning otherwise no complaints except for poor sleep. She does report a history of having a skipped heartbeat. Review of Systems: denies headache/fever/chills/vomiting/ abdominal pain/diarrhea. Otherwise see above. Constitutional Vitals: Vital Signs Temp Pulse Resp BP Pulse Ox 98.9 F 90 21 113/93 92 01/28/21 08:15 01/28/21 08:15 01/28/21 08:15 01/28/21 06:01 01/28/21 07:08 Period Temp Pulse Resp BP Sys/Barakat Pulse Ox Last 24 Hr 97.5 F-99.4 F 30-140 14-25 84-126/64-97 91-94 Intake and Output 01/27/21 01/28/21 01/28/21 21:59 05:59 13:59 Intake Total 1640 250 Output Total 700 200 Balance 940 50 Weight 71.713 kg Intake & Output: Intake & Output 01/27/21 01/28/21 01/28/21 21:59 05:59 13:59 Intake Total 1640 250 Output Total 700 200 Balance 940 50 Weight 71.713 kg Intake: IV 500 50 Sodium Chloride 0.9% 500 ml @ 500 Wide Open IV [facility] Rx#: [id number] Rocephin 2 gm In Dextrose 5% in 50 Water 50 ml @ 100 mls/hr IV Q24H [facility] Rx#:[id number] Oral 1140 200 Output: Void Amount 300 Urine/Stool Mix 250 200 Stool 150 Other: Meal Dinner Percent of Meal Consumed 25% Feeding Ability Independent Urine Appearance Clear Urine Color Dark Yellow Urine Odor Normal Stool Size Moderate Small Stool Color Brown Brown Stool Consistency Liquid Watery Loose # Bowel Movements 1 1 Exam: General: Alert, Awake, No acute Distress Eyes/N/T: EOMI, Head/Neck: neck supple, CV: regular with irregularity, No murmurs, chest wall tenderness right side Pulm: mild rales b/l bases - improved, no wheezing/rhonchi Abd: soft, nontender, +BS x4 Ext: no clubbing/cyanosis/edema Neuro: Alert, moves all extremities, chronic left hemiplegia Skin: warm/dry OBJ DATA Labs CBC & Chem 7: 01/28/21 05:12 01/28/21 05:12 Labs: Abnormal Lab Results 01/28/21 01/28/21 01/27/21 05:12 05:12 06:00 WBC 11.7 H MPV 12.1 H Neut % (Auto) 80.7 H Lymph % (Auto) 13.0 L Seg Neutrophils % Lymphocytes % Absolute Neutrophils 9.46 H Sodium 130 L Carbon Dioxide 19 L BUN 36 H Glucose 112 H Calcium 8.1 L AST Lactate Dehydrogenase C-Reactive Protein Procalcitonin 0.10 H 01/27/21 01/27/21 01/26/21 05:59 05:59 06:00 WBC 18.2 H MPV 11.7 H Neut % (Auto) Lymph % (Auto) Seg Neutrophils % 94 H Lymphocytes % 6 L Absolute Neutrophils Sodium 131 L Carbon Dioxide 20 L BUN 34 H Glucose 110 H Calcium 8.4 L AST 39 H Lactate Dehydrogenase 295 H C-Reactive Protein 4.60 H 2.00 H Procalcitonin 01/26/21 01/26/21 01/26/21 06:00 06:00 06:00 WBC 20.3 H MPV 11.9 H Neut % (Auto) Lymph % (Auto) Seg Neutrophils % 91 H Lymphocytes % 4 L Absolute Neutrophils Sodium Carbon Dioxide 17 L BUN 26 H Glucose 114 H Calcium AST 37 H Lactate Dehydrogenase 240 H C-Reactive Protein Procalcitonin 0.16 H 01/25/21 01/25/21 01/25/21 18:30 18:29 18:29 WBC MPV Neut % (Auto) Lymph % (Auto) Seg Neutrophils % 90 H Lymphocytes % 5 L Absolute Neutrophils Sodium Carbon Dioxide BUN Glucose Calcium AST Lactate Dehydrogenase C-Reactive Protein 1.00 H Procalcitonin 0.13 H Meds: Medications Acetaminophen (Acetaminophen 325 Mg Tablet) 650 mg PO Q6HP PRN PRN Reason: PAIN/FEVER > 101 Albuterol/Ipratropium (Ipratropium/Albuterol 3 Ml Ampul.Neb) 3 ml NEB Q4HP PRN PRN Reason: Shortness Of Breath Alprazolam (Alprazolam 0.25 Mg Tablet) 0.25 mg PO Q8HP PRN PRN Reason: anxiety Atorvastatin Calcium (Atorvastatin 20 Mg Tablet) 20 mg PO [facility] Last Admin: 01/27/21 22:22 Dose: 20 mg Documented by: Baclofen (Baclofen 10 Mg Tablet) 20 mg PO BIDP PRN PRN Reason: Restless Leg(S) Citalopram Hydrobromide (Citalopram 20 Mg Tablet) 20 mg PO DAILY [facility] Clopidogrel Bisulfate (Clopidogrel 75 Mg Tablet) 75 mg PO QDAY [facility] Diphenhydramine HCl (Diphenhydramine 50 Mg/Ml Vial) 25 mg IV Q4-6HP PRN PRN Reason: Nausea Last Admin: 01/28/21 01:34 Dose: 25 mg Documented by: Docusate Sodium (Docusate Sodium 100 Mg Capsule) 100 mg PO BID [facility] Last Admin: 01/27/21 22:22 Dose: 100 mg Documented by: Enoxaparin Sodium (Enoxaparin 40 Mg/0.4 Ml Syringe) 40 mg SQ DAILY [facility] Gabapentin (Gabapentin 300 Mg Capsule) 300 mg PO TID [facility] Last Admin: 01/27/21 22:22 Dose: 300 mg Documented by: Ceftriaxone Sodium 2 gm/ (Dextrose) 50 mls @ 100 mls/hr IV Q24H [facility]; Protocol Last Infusion: 01/28/21 05:05 Dose: Infused Documented by: Magnesium Sulfate (Magnesium Sulfate) 2 gm in 50 mls @ 50 mls/hr IV UD PRN PRN Reason: Magnesium </= 1.6 Potassium Chloride 40 meq/ (Dextrose) 520 mls @ 130 mls/hr IV UD PRN PRN Reason: Potassium < 3 Liothyronine Sodium (Liothyronine 5 Mcg Tablet) 5 mcg PO [facility] Last Admin: 01/27/21 22:26 Dose: 5 mcg Documented by: Lorazepam (Lorazepam 2 Mg/Ml Vial) 0.5 mg IV Q6HP PRN PRN Reason: ANXIETY/SEDATION Last Admin: 01/28/21 06:39 Dose: 0.5 mg Documented by: Losartan Potassium (Losartan 50 Mg Tablet) 50 mg PO [facility] Last Admin: 01/27/21 22:22 Dose: 50 mg Documented by: Metoclopramide HCl (Metoclopramide 10 Mg/2 Ml Vial) 10 mg IV Q6HP PRN PRN Reason: Nausea And Vomiting Metoprolol Tartrate (Metoprolol Tartrate 5 Mg/5 Ml Vial) 5 mg IV Q2HP PRN PRN Reason: Tachyarrhythmias HR>110 Last Admin: 01/28/21 03:50 Dose: 5 mg Documented by: Metronidazole (Metronidazole 500 Mg Tablet) 500 mg PO Q8 [facility]; Protocol Last Admin: 01/28/21 05:49 Dose: 500 mg Documented by: Ondansetron HCl (Ondansetron 4 Mg/2 Ml Vial) 4 mg IV Q4HP PRN PRN Reason: Nausea And Vomiting Last Admin: 01/28/21 03:50 Dose: 4 mg Documented by: Aripiprazole 2 Mg (Tablet) 1 dose PO DAILY [facility] Polyethylene Glycol (Polyethylene Glycol 3350 17 Gm Packet) 17 gm PO DAILYP PRN PRN Reason: Constipation Potassium Chloride (Potassium Chloride 20 Meq Tablet) 40 meq PO UD PRN PRN Reason: Potssium is 3-3.5 Potassium Chloride (Potassium Chloride 20 Meq Tablet) 40 meq PO UD PRN PRN Reason: Potassium < 3 Senna (Sennosides 1 Tablet) 2 tab PO DAILYP PRN PRN Reason: Constipation Sodium Biphosphate/Sodium Phosphate (Fleets Adult Enema) 1 dose SC DAILYP PRN PRN Reason: Constipation Sodium Chloride (0.9 % Sodium Chloride 10 Ml Syringe) 10 ml IV Q8 [facility] Last Admin: 01/28/21 05:49 Dose: 10 ml Documented by: Tramadol HCl (Tramadol 50 Mg Tablet) 50 mg PO QIDP PRN; Protocol PRN Reason: Pain Travoprost (Travoprost Ophth Drops Bottle 2.5ml) 1 gtt OU QHS [facility] Last Admin: 01/27/21 22:24 Dose: 1 gtt Documented by: A/P Narrative A/P Narrative: A: *AFib RVR (no history of): -CHADSVASC=6 -echo *N/V: ?acutel gastroenteritis -improving -CTA c/a/p @[facility] unremarkable *Volume depletion: improved *Mild lactic acidosis: 2/2 above. resolved *Aspiration pneumonitis/Pneumonia: -leukocytosis improving *Acute hypoxic respiratory failure: 2/2 above, likely aspirated during n/v -CTA chest on admit no acute path, f/u CXR with interstitial opacities and infiltrate R>L. pBNP low -on 3L NC *CKD II: *Chr pain/neuropathy: *h/o CVA w/ residual Left hemiplegia: *Depression/anxiety: *HTN: on ARB *Hypothyroidism: TSH 8.6, free T4 wnl, f/u labs outpt, levothyroxine may need to be increased *suspect COPD based in imaging and history P: -Anticoag/BB/follow-up with cardiology -echo pending -antiemetics -treat for Aspiration PNA -O2 supp (wean), IS/Acapella, -RT for home O2 eval prior to d/c -cont Statin/plavix/ARB -cont psych meds -PT/OT -ppx: Lovenox full code Time Spent With Patient Time: Total time spent is greater than 50% in coordination of care (as documented) at patient's floor/unit and/or counseling patient: QUALITY Stroke Symptom Onset Unknown: No VTE Deep Vein Thrombosis/Pulmonary Embolism Present on Admission: No
[2021-01-28] MEDS ORDERED: ENOXAPARIN 40 MG/0.4 ML SYRINGE SQ SCH (09:00)
[2021-01-28] MEDS: SODIUM CHLORIDE 1 GM TABLET PO SCH ×2 (09:32→20:36)
[2021-01-28] MEDS: GABAPENTIN 300 MG CAPSULE PO SCH ×3 (09:32→20:37)
[2021-01-28] MEDS: CLOPIDOGREL 75 MG TABLET PO SCH (09:32)
[2021-01-28] MEDS: METOPROLOL TARTRATE 25 MG TABLET PO SCH ×2 (09:32→20:37)
[2021-01-28] MEDS: DOCUSATE SODIUM 100 MG CAPSULE PO SCH ×2 (09:32→20:37)
[2021-01-28] MEDS: CITALOPRAM 20 MG TABLET PO SCH (09:33)
[2021-01-28] MEDS: cefTRIAXone 2 GM in DEXTROSE 5% IN WATER 50 ML IV SCH (10:16)
[2021-01-28] MEDS: traMADol 50 MG TABLET PO PRN ×2 (13:38→18:32)
[2021-01-28] MEDS: LIOTHYRONINE 5 MCG TABLET PO SCH (20:37)
[2021-01-28] MEDS: LOSARTAN 50 MG TABLET PO SCH (20:37)
[2021-01-28] MEDS: ATORVASTATIN 20 MG TABLET PO SCH (20:37)
[2021-01-28] MEDS: TRAVOPROST OPHTH DROPS BOTTLE 2.5ML OU SCH (20:38)
--- NOTE | 2021-01-28 21:16 | EKG ---
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 Measurements Intervals [place] Rate: 140 P: [place]: QRS: 83 QRSD: 94 T: -88 QT: 348 QTc: 531 Interpretive Statements ATRIAL FIBRILLATION BORDERLINE RIGHT AXIS DEVIATION CONSIDER ANTEROSEPTAL INFARCT REPOLARIZATION ABNORMALITY, PROB RATE RELATED PROLONGED QT INTERVAL NO PRIOR TRACING FOR COMPARISON ABNORMAL ECG Electronically Signed On 01-28-2021 21:16:04 PDT by Hari Donald M.D. /[facility] [place]//[id number]
[2021-01-29] MEDS: 0.9 % SODIUM CHLORIDE 10 ML SYRINGE IV SCH ×3 (05:26→21:08)
[2021-01-29] MEDS: metroNIDAZOLE 500 MG TABLET PO SCH ×3 (05:26→20:52)
[2021-01-29 06:31] LABS: Basophils # (Auto) 0.01 K/mcL (0.00-0.20); Basophils % (Auto) 0.1 % (0.0-2.0); Eosinophils # (Auto) 0 K/mcL (0.00-0.70); Eosinophils % (Auto) 0 % (0.0-7.0); Hematocrit 38.2 % (36.0-48.0); Hemoglobin 12.4 g/dL (12.0-15.0); Lymphocytes # (Auto) 1.46 K/mcL (1.50-4.80); Lymphocytes % (Auto) 14.3 % (15.0-49.0); Mean Cell Volume 96.7 fL (80.0-100.0); Mean Corpuscular HGB Conc 32.5 g/dL (31.0-36.0); Mean Platelet Volume 12.3 fL (7.4-10.4); Monocytes # (Auto) 0.99 K/mcL (0.10-0.90); Monocytes % (Auto) 9.7 % (1.0-12.0); Neutrophils % (Auto) 75.9 % (38.0-78.0); Platelet Count 171 K/mcL (140-440); RBC 3.95 M/mcL (4.00-5.20); Red Cell Distribution Width 12.1 % (11.5-14.5); WBC 10.2 K/mcL (4.5-11.0)
[2021-01-29] MEDS: traMADol 50 MG TABLET PO PRN (06:52)
[2021-01-29 07:02] LABS: ALT/SGPT 43 U/L (<40); AST/SGOT 33 U/L (<32); Albumin 3.2 gm/dL (3.2-5.2); Albumin/Globulin Ratio 1.4 (1.0-2.3); Alkaline Phosphatase 103 U/L (39-117); Bilirubin,Direct < 0.2 mg/dL (0-0.3); Bilirubin,Total 0.5 mg/dL (0.1-1.0); Blood Urea Nitrogen 29 mg/dL (8-23); Calcium 8.3 mg/dL (8.6-10.4); Carbon Dioxide 24 mmol/L (22-30); Chloride 99 mmol/L (96-108); Globulin 2.3 gm/dL (2.2-3.7); Glomerular Filtration Rate 72; Glucose 79 mg/dL (70-105); Lactate Dehydrogenase 280 U/L (135-225); Triglycerides 82 mg/dL (<150)
--- NOTE | 2021-01-29 07:41 | Internal Med Progress Note ---
SUBJECTIVE Subjective Patient information: Note initiated : 01/29/21 at 7:34 am Service Date, if different from initiated Date: [] Patient: Marilyn Dunbar a 75 y/o F admitted on 01/25/21 for Nausea/vomiting. Chief Complaint: [] Interval history: History of present illness: Ms. Dunbar is a 75 year old F Presented to [facility] this morning with nausea vomiting. No diarrhea. No coughing chest pain shortness of breath. No altered mental status. Extensive work-up in the ED undertaken with the only lab abnormalities being a mild leukocytosis of 13 and an elevated lactate of about 2.9-3.0. CTA of the chest as well as CT of the abdomen pelvis was unremarkable for any acute pathology. Vital signs stable. Mildly hypoxic at 88 placed on oxygen in the ED. Patient states that she got back from trip from [place] on the and she has been exhausted since then. Yesterday evening she had a poor appetite but otherwise felt okay. This morning she woke up she had a bowel movement and then started on some nausea vomiting. She denies stomach pain. Denies fever chills. 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 01/26 Patient reports feeling a little bit better. No vomiting but does have some nausea. Often asks for Ativan. He has a cough which is dry she says, she denies shortness of breath. Nurse reported sats in the high 80s on 3 L but her chest sounds clear while double check the pulse ox. Chest x-ray pending. Elevated white blood cell count but no bandemia. She does have some pleuritic chest pain right side worse with cough and deep breath. 01/27 has some nausea but no vomiting. States she has not had a bowel movement a couple days and she typically has an every day. Mild nonproductive cough. White blood cell count slightly improved today. Patient afebrile. 01/28 Patient had A. fib with RVR last night was transferred to the unit. No events overnight other than needing several doses of IV Lopressor. She has some nausea this morning otherwise no complaints except for poor sleep. She does report a history of having a skipped heartbeat. 01/29 Patient will back in a sinus yesterday but then A. fib this morning with rate controlled. She complained of left shoulder pain today Chest x-ray and EKG and troponin ordered. Chest x-ray with increased infiltrate likely edema. Troponin 0.11. Results of the echocardiogram finally got back showing EF of 30-35% with global hypokinesis. EKG. On examination of the shoulder pain is actually isolated to the joint and an increase with manipulation. Review of Systems: denies headache/fever/chills/vomiting/ abdominal pain/diarrhea. Otherwise see above. Constitutional Vitals: Vital Signs Temp Pulse Resp BP Pulse Ox 97.6 F 70 19 106/80 99 01/29/21 04:02 01/29/21 04:18 01/29/21 05:18 01/29/21 05:07 01/29/21 05:07 Period Temp Pulse Resp BP Sys/Barakat Pulse Ox Last 24 Hr 96.9 F-98.9 F 70-118 11-30 52-132/39-107 94-100 Intake and Output 01/28/21 01/29/21 01/29/21 21:59 05:59 13:59 Intake Total 800 350 Output Total 150 601 Balance 650 -251 Weight 72.802 kg Intake & Output: Intake & Output 01/28/21 01/29/21 01/29/21 21:59 05:59 13:59 Intake Total 800 350 Output Total 150 601 Balance 650 -251 Weight 72.802 kg Intake: Oral 800 350 Output: Void Amount 150 550 # of times incontinent of urine 1 Stool 50 Other: Meal Dinner Percent of Meal Consumed 0% Urine Appearance Clear Clear Urine Color Dark Yellow Pale Urine Odor Normal Stool Size Small Stool Color Brown Stool Consistency Soft # Bowel Movements 1 # of times incontinent of 1 Bowels Exam: General: Alert, Awake, No acute Distress Eyes/N/T: EOMI, Head/Neck: neck supple, CV: regular with irregularity, No murmurs, Pulm: mild rales b/l bases - improved, no wheezing/rhonchi Abd: soft, nontender, +BS x4 Ext: no clubbing/cyanosis/edema. right shoulder pain to manipulation Neuro: Alert, moves all extremities, chronic left hemiplegia Skin: warm/dry OBJ DATA Labs CBC & Chem 7: 01/29/21 05:06 01/29/21 05:06 Labs: Abnormal Lab Results 01/29/21 01/29/21 01/28/21 05:06 05:06 05:12 WBC RBC 3.95 L MPV 12.3 H Neut % (Auto) Lymph % (Auto) 14.3 L Lymph # (Auto) 1.46 L [place] # (Auto) 0.99 H Seg Neutrophils % Lymphocytes % Absolute Neutrophils Sodium 132 L 130 L Carbon Dioxide 19 L BUN 29 H 36 H Glucose 112 H Calcium 8.3 L 8.1 L GGT 89 H AST 33 H ALT 43 H Lactate Dehydrogenase 280 H C-Reactive Protein Total Protein 5.5 L Procalcitonin 01/28/21 01/27/21 01/27/21 05:12 06:00 05:59 WBC 11.7 H RBC MPV 12.1 H Neut % (Auto) 80.7 H Lymph % (Auto) 13.0 L Lymph # (Auto) [place] # (Auto) Seg Neutrophils % Lymphocytes % Absolute Neutrophils 9.46 H Sodium 131 L Carbon Dioxide 20 L BUN 34 H Glucose 110 H Calcium 8.4 L GGT AST 39 H ALT Lactate Dehydrogenase 295 H C-Reactive Protein 4.60 H Total Protein Procalcitonin 0.10 H 01/27/21 01/26/21 01/26/21 05:59 06:00 06:00 WBC 18.2 H RBC MPV 11.7 H Neut % (Auto) Lymph % (Auto) Lymph # (Auto) [place] # (Auto) Seg Neutrophils % 94 H Lymphocytes % 6 L Absolute Neutrophils Sodium Carbon Dioxide BUN Glucose Calcium GGT AST ALT Lactate Dehydrogenase C-Reactive Protein 2.00 H Total Protein Procalcitonin 0.16 H 01/26/21 01/26/21 06:00 06:00 WBC RBC MPV Neut % (Auto) Lymph % (Auto) Lymph # (Auto) [place] # (Auto) Seg Neutrophils % 91 H Lymphocytes % 4 L Absolute Neutrophils Sodium Carbon Dioxide 17 L BUN 26 H Glucose 114 H Calcium GGT AST 37 H ALT Lactate Dehydrogenase 240 H C-Reactive Protein Total Protein Procalcitonin Meds: Medications Acetaminophen (Acetaminophen 325 Mg Tablet) 650 mg PO Q6HP PRN PRN Reason: PAIN/FEVER > 101 Last Admin: 01/29/21 00:16 Dose: 650 mg Documented by: Albuterol/Ipratropium (Ipratropium/Albuterol 3 Ml Ampul.Neb) 3 ml NEB Q4HP PRN PRN Reason: Shortness Of Breath Alprazolam (Alprazolam 0.25 Mg Tablet) 0.25 mg PO Q8HP PRN PRN Reason: anxiety Last Admin: 01/29/21 00:15 Dose: 0.25 mg Documented by: Atorvastatin Calcium (Atorvastatin 20 Mg Tablet) 20 mg PO HS [facility] Last Admin: 01/28/21 20:37 Dose: 20 mg Documented by: Baclofen (Baclofen 10 Mg Tablet) 20 mg PO BIDP PRN PRN Reason: Restless Leg(S) Last Admin: 01/28/21 16:06 Dose: 20 mg Documented by: Citalopram Hydrobromide (Citalopram 20 Mg Tablet) 20 mg PO DAILY [facility] Last Admin: 01/28/21 09:33 Dose: 20 mg Documented by: Clopidogrel Bisulfate (Clopidogrel 75 Mg Tablet) 75 mg PO QDAY [facility] Last Admin: 01/28/21 09:32 Dose: 75 mg Documented by: Diphenhydramine HCl (Diphenhydramine 50 Mg/Ml Vial) 25 mg IV Q4-6HP PRN PRN Reason: Nausea Last Admin: 01/28/21 01:34 Dose: 25 mg Documented by: Docusate Sodium (Docusate Sodium 100 Mg Capsule) 100 mg PO BID [facility] Last Admin: 01/28/21 20:37 Dose: 100 mg Documented by: Enoxaparin Sodium (Enoxaparin 40 Mg/0.4 Ml Syringe) 40 mg SQ DAILY [facility] Last Admin: 01/28/21 09:32 Dose: 40 mg Documented by: Gabapentin (Gabapentin 300 Mg Capsule) 300 mg PO TID [facility] Last Admin: 01/28/21 20:37 Dose: 300 mg Documented by: Ceftriaxone Sodium 2 gm/ (Dextrose) 50 mls @ 100 mls/hr IV Q24H [facility]; Protocol Last Infusion: 01/28/21 11:06 Dose: Infused Documented by: Magnesium Sulfate (Magnesium Sulfate) 2 gm in 50 mls @ 50 mls/hr IV UD PRN PRN Reason: Magnesium </= 1.6 Potassium Chloride 40 meq/ (Dextrose) 520 mls @ 130 mls/hr IV UD PRN PRN Reason: Potassium < 3 Liothyronine Sodium (Liothyronine 5 Mcg Tablet) 5 mcg PO HS [facility] Last Admin: 07/20/21 20:37 Dose: 5 mcg Documented by: Lorazepam (Lorazepam 2 Mg/Ml Vial) 0.5 mg IV Q6HP PRN PRN Reason: ANXIETY/SEDATION Last Admin: 01/28/21 06:39 Dose: 0.5 mg Documented by: Losartan Potassium (Losartan 50 Mg Tablet) 50 mg PO HS [facility] Last Admin: 01/28/21 20:37 Dose: 50 mg Documented by: Metoclopramide HCl (Metoclopramide 10 Mg/2 Ml Vial) 10 mg IV Q6HP PRN PRN Reason: Nausea And Vomiting Metoprolol Tartrate (Metoprolol Tartrate 5 Mg/5 Ml Vial) 5 mg IV Q2HP PRN PRN Reason: Tachyarrhythmias HR>110 Last Admin: 01/28/21 13:58 Dose: 5 mg Documented by: Metoprolol Tartrate (Metoprolol Tartrate 25 Mg Tablet) 12.5 mg PO BID [facility] Last Admin: 01/28/21 20:37 Dose: 12.5 mg Documented by: Metronidazole (Metronidazole 500 Mg Tablet) 500 mg PO Q8 [facility]; Protocol Last Admin: 01/29/21 05:26 Dose: 500 mg Documented by: Ondansetron HCl (Ondansetron 4 Mg/2 Ml Vial) 4 mg IV Q4HP PRN PRN Reason: Nausea And Vomiting Last Admin: 01/28/21 13:38 Dose: 4 mg Documented by: Aripiprazole 2 Mg (Tablet) 1 dose PO DAILY [facility] Last Admin: 01/28/21 09:35 Dose: 1 dose Documented by: Polyethylene Glycol (Polyethylene Glycol 3350 17 Gm Packet) 17 gm PO DAILYP PRN PRN Reason: Constipation Potassium Chloride (Potassium Chloride 20 Meq Tablet) 40 meq PO UD PRN PRN Reason: Potssium is 3-3.5 Potassium Chloride (Potassium Chloride 20 Meq Tablet) 40 meq PO UD PRN PRN Reason: Potassium < 3 Senna (Sennosides 1 Tablet) 2 tab PO DAILYP PRN PRN Reason: Constipation Sodium Biphosphate/Sodium Phosphate (Fleets Adult Enema) [address] DAILYP PRN PRN Reason: Constipation Sodium Chloride (0.9 % Sodium Chloride 10 Ml Syringe) 10 ml IV Q8 [facility] Last Admin: 01/29/21 05:26 Dose: 10 ml Documented by: Tramadol HCl (Tramadol 50 Mg Tablet) 50 mg PO QIDP PRN; Protocol PRN Reason: Pain Last Admin: 01/29/21 06:52 Dose: 50 mg Documented by: Travoprost (Travoprost Ophth Drops Bottle 2.5ml) 1 gtt OU QHS [facility] Last Admin: 01/28/21 20:38 Dose: Not Given Documented by: A/P Narrative A/P Narrative: A: *Elevated troponin: 0.13, was normal @ [facility] *AFib RVR (no history of): -CHADSVASC=6 *systolic CHF: -echo w/EF 30-35% mod-sev global hypokinesis, RV syst fxn severely reduced, mod Pulm HTN, mod TR -Trop neg and BNP low @[facility], repeat *N/V: ?acute gastroenteritis vs now more concerning for cardiac etiology -improving -CTA c/a/p @[facility] unremarkable, covid neg @ [facility] *Volume depletion: improved *Mild lactic acidosis: 2/2 above. resolved *Aspiration pneumonitis/Pneumonia: -leukocytosis resolved *Acute hypoxic respiratory failure: 2/2 above, likely aspirated during n/v -CTA chest on admit no acute path, f/u CXR with interstitial opacities and infiltrate R>L. pBNP low -on 3L NC *CKD II: *Chr pain/neuropathy: *h/o CVA w/ residual Left hemiplegia: *Depression/anxiety: *HTN: on ARB *Hypothyroidism: TSH 8.6, free T4 wnl, f/u labs outpt, levothyroxine may need to be increased *suspect COPD based in imaging and history P: -discussed case with Dr. Veloz @[facility] - we will transfer pt to [facility] this afternoon once bed availability confirmed -Anticoag/BB -antiemetics -treat for Aspiration PNA -O2 supp (wean), IS/Acapella, -RT for home O2 eval prior to d/c -cont Statin/plavix/ARB -cont psych meds -PT/OT -ppx: lovenox bid to likely eliquis for afib full code Time Spent With Patient Time: Total time spent is greater than 50% in coordination of care (as documented) at patient's floor/unit and/or counseling patient: QUALITY Stroke Symptom Onset Unknown: No VTE Deep Vein Thrombosis/Pulmonary Embolism Present on Admission: No
--- NOTE | 2021-01-29 08:42 | XRay Report ---
HISTORY: Follow-up pulmonary infiltrates, nausea and vomiting FINDINGS: The heart is mildly enlarged. There are diffuse alveolar opacities throughout both lungs. Greatest consolidation is around the right hilum, behind the right heart border and above the left diaphragm. The infiltrates have become worse since 01/28/21. The heart is larger today. There may be a small subpulmonic pleural effusion on the right. IMPRESSION: Congestive heart failure with pulmonary edema. Superimposed pneumonia/atelectasis should be considered. Interpreted and Authenticated by: Carrington Reyes 01/29/21
[2021-01-29] MEDS ORDERED: FUROSEMIDE 20 MG/2 ML VIAL IV ONE (09:02)
[2021-01-29] MEDS ORDERED: ALBUMIN HUMAN 12.5 GM/50 ML BAG IV ONE (09:02)
[2021-01-29] MEDS ORDERED: ASPIRIN 300 MG RECTAL SUPPOSITORY PR ONE (09:09)
[2021-01-29] MEDS: ENOXAPARIN 80 MG/0.8 ML SYRINGE SQ SCH ×2 (09:32→20:52)
[2021-01-29] MEDS: CITALOPRAM 20 MG TABLET PO SCH (09:57)
[2021-01-29] MEDS: DOCUSATE SODIUM 100 MG CAPSULE PO SCH ×2 (09:57→20:51)
[2021-01-29] MEDS: CLOPIDOGREL 75 MG TABLET PO SCH (09:58)
[2021-01-29] MEDS: METOPROLOL TARTRATE 25 MG TABLET PO SCH ×2 (09:58→20:51)
[2021-01-29] MEDS: GABAPENTIN 300 MG CAPSULE PO SCH ×3 (09:58→20:51)
[2021-01-29] MEDS: cefTRIAXone 2 GM in DEXTROSE 5% IN WATER 50 ML IV SCH (10:43)
[2021-01-29] MEDS ORDERED: morphine 4 MG/ML VIAL IV PRN (15:18)
[2021-01-29] MEDS ORDERED: FUROSEMIDE 20 MG TABLET PO SCH (16:00)
--- NOTE | 2021-01-29 17:37 | Discharge Summary ---
Discharge Provider Provider Patient information: Note initiated : 01/29/21 at 5:36 pm Service Date, if different from initiated Date: [] Patient: Marilyn Dunbar 75 y/o F admitted on 01/25/21 for Nausea/vomiting. Chief Complaint: [nausea vomiting] Date of admission: 01/25/21 18:07 Discharge date: 01/29/21 Primary care physician: ED Ahn Discharge Meds Discharge Medications Home Medications acetaminophen 500 mg capsule 500 mg PO QID PRN cap 03/17/19 [History Confirmed 01/25/21 Last Taken Unknown] diclofenac sodium 1 % topical gel 2 g TOPICAL QID 03/17/19 [History Confirmed 01/25/21 Last Taken Unknown] travoprost 0.004 % eye drops 1 drp OPHTHALMIC QHS ml 03/17/19 [History Confirmed 01/25/21 Last Taken 01/24/21 21:00] benzonatate 100 mg capsule 200 mg PO TID #60 cap 09/08/19 [Rx Confirmed 01/25/21 Last Taken Unknown] clopidogrel 75 mg tablet 75 mg PO QDAY #90 tab 03/13/20 [Rx Confirmed 01/25/21 Last Taken 01/24/21 09:00] alprazolam 0.25 mg tablet 0.25 mg PO Q8H PRN #30 tab 06/28/20 [Rx Confirmed 01/25/21 Last Taken Unknown] albuterol sulfate 90 mcg/actuation aerosol inhaler 2 puff INHALATION QID PRN #8 g 10/15/20 [Rx Confirmed 01/25/21 Last Taken Unknown] lorazepam 0.5 mg tablet 1 mg PO QHS PRN #30 tab 10/15/20 [Rx Confirmed 01/25/21 Last Taken 01/24/21 21:00] tramadol 50 mg tablet 50 mg PO QID #120 tab 10/15/20 [Rx Confirmed 01/25/21 Last Taken 01/24/21 21:00] losartan 50 mg tablet See Rx Instructions .ROUTE .COMPLEX #90 tab 11/27/20 [Rx Confirmed 01/25/21 Last Taken 01/24/21 21:00] aripiprazole 2 mg tablet See Rx Instructions .ROUTE .COMPLEX #30 tab 12/04/20 [Rx Confirmed 01/25/21 Last Taken Unknown] liothyronine 5 mcg tablet See Rx Instructions .ROUTE .COMPLEX #90 tab 01/10/21 [Rx Confirmed 01/25/21 Last Taken 01/24/21 07:00] atorvastatin [Lipitor] 20 mg PO HS 01/25/21 [History Confirmed 01/25/21 Last Taken 01/24/21 21:00] baclofen 20 mg PO BID PRN 01/25/21 [History Confirmed 01/25/21 Last Taken Unknown] citalopram [Celexa] 20 mg PO DAILY 01/25/21 [History Confirmed 01/25/21 Last Taken 01/24/21 09:00] gabapentin [Neurontin] 600 mg PO QID 01/25/21 [History Confirmed 01/25/21 Last Taken 01/24/21 21:00] COURSE Hospital Course Hospital course: Patient was initially admitted for nausea and vomiting, and symptomatic measures including antiemetics were given and patient's symptoms of nausea and vomiting gradually improved. However, patient developed aspiration pneumonia as evidenced by chest imaging and antibiotics including Rocephin and Flagyl were given. Supplemental oxygen's were also offered. Patient was also found to be in new onset atrial fibrillation's with RVR. Rate control with beta-shelia as well as anticoagulations with Eliquis were performed. Last but not least, patient was complaining of chest pain and serial troponins showing an uptrending from 0.13-0.16. Aspirin, statin, beta-shelia, Eliquis, and nitroglycerin/morphine were given for symptoms controlled. We spoke with a hydrochloric manufacturing supervisor Dr. Veloz on phone and he recommended the patient to be transferred to another facility with cardiology service for potentially cardiac catheterizations.Spoke with Dr. Arroyo from [facility] who Kindly accepted the patient. Discharge diagnosis: NSTEMI Time Spent with Patient Time attestation: Total time spent providing and/or coordinating discharge services: Patient was initially admitted for nausea and vomiting, and symptomatic measures including antiemetics were given and patient's symptoms of nausea and vomiting gradually improved. However, patient developed aspiration pneumonia as evidenced by chest imaging and antibiotics including Rocephin and Flagyl were given. Supplemental oxygen's were also offered. Patient was also found to be in new onset atrial fibrillation's with RVR. Rate control with beta-shelia as well as anticoagulations with Eliquis were performed. Last but not least, patient was complaining of chest pain and serial troponins showing an uptrending from 0.13-0.16. Aspirin, statin, beta-shelia, Eliquis, and nitroglycerin/morphine were given for symptoms controlled. We spoke with a hydrochloric manufacturing supervisor Dr. Veloz on phone and he recommended the patient to be transferred to another facility with cardiology service for potentially cardiac catheterizations.Spoke with Dr. Arroyo from [facility] who Kindly accepted the patient. EXAM Constitutional Vitals: Temp Pulse Resp BP Pulse Ox 36.7 C 69 15 102/76 97 01/29/21 14:03 01/29/21 16:32 01/29/21 16:32 01/29/21 16:00 01/29/21 14:03 General appearance: cooperative and no acute distress Head Head exam: Present atraumatic and normocephalic Eye Eye exam: Present EOMI and PERRL ENT ENT exam: Present mucous membranes moist, normal exam and normal external ear exam Neck Neck exam: Present normal inspection; Absent lymphadenopathy, tenderness and thyromegaly Respiratory Respiratory exam: Absent accessory muscle use, respiratory distress and wheezes Cardiovascular Cardiovascular exam: Present normal rate and rhythm; Absent JVD GI/Abdominal GI/Abdominal exam: Present normal bowel sounds and soft; Absent organomegaly and tenderness Extremities Exam Extremities exam: Present full ROM, normal capillary refill and normal inspection; Absent tenderness Neurological Exam Neurological exam: Present alert, CN II-XII intact and oriented X3; Absent motor sensory deficit Psychiatric Psychiatric exam: Present normal affect and normal mood; Absent anxious and depressed Skin Skin exam: Present dry and intact Discharge Data Data Completed and Pending Labs on day of discharge: Labs from last 24 hours 01/29/21 01/29/21 01/29/21 12:48 07:30 05:06 WBC RBC Hgb Hct MCV MCH MCHC RDW Plt Count MPV Neut % (Auto) Lymph % (Auto) [place] % (Auto) Eos % (Auto) Baso % (Auto) Lymph # (Auto) [place] # (Auto) Eos # (Auto) Baso # (Auto) Absolute Neutrophils Sodium 132 L Potassium 4.4 Chloride 99 Carbon Dioxide 24 Anion Gap 9.0 BUN 29 H Creatinine 0.8 GFR Calculation 72 Glucose 79 Uric Acid 5.0 Calcium 8.3 L Phosphorus 3.0 Magnesium 2.5 Total Bilirubin 0.5 Direct Bilirubin < 0.2 GGT 89 H AST 33 H ALT 43 H Alkaline Phosphatase 103 Lactate Dehydrogenase 280 H Troponin T 0.16 H* 0.13 H* Total Protein 5.5 L Albumin 3.2 Globulin 2.3 Albumin/Globulin Ratio 1.4 Triglycerides 82 01/29/21 05:06 WBC 10.2 RBC 3.95 L Hgb 12.4 Hct 38.2 MCV 96.7 MCH 31.4 MCHC 32.5 RDW 12.1 Plt Count 171 MPV 12.3 H Neut % (Auto) 75.9 Lymph % (Auto) 14.3 L [place] % (Auto) 9.7 Eos % (Auto) 0 Baso % (Auto) 0.1 Lymph # (Auto) 1.46 L [place] # (Auto) 0.99 H Eos # (Auto) 0 Baso # (Auto) 0.01 Absolute Neutrophils 7.78 Sodium Potassium Chloride Carbon Dioxide Anion Gap BUN Creatinine GFR Calculation Glucose Uric Acid Calcium Phosphorus Magnesium Total Bilirubin Direct Bilirubin GGT AST ALT Alkaline Phosphatase Lactate Dehydrogenase Troponin T Total Protein Albumin Globulin Albumin/Globulin Ratio Triglycerides Discharge Plan Patient/Caregiver Discharge Instructions Instructions: Chest Pain (DC) Prescriptions: No Action benzonatate 100 mg capsule 200 mg PO TID Qty: 60 RF: 6 clopidogrel [Plavix] 75 mg tablet 75 mg PO QDAY Qty: 90 RF: 4 alprazolam 0.25 mg tablet 0.25 mg PO Q8H PRN (Reason: anxiety ) Qty: 30 RF: 1 losartan 50 mg tablet See Rx Instructions .ROUTE .COMPLEX Qty: 90 RF: 2 aripiprazole 2 mg tablet See Rx Instructions .ROUTE .COMPLEX Qty: 30 RF: 3 liothyronine 5 mcg tablet See Rx Instructions .ROUTE .COMPLEX Qty: 90 RF: 2 Travatan Z 0.004 % drops 1 drp OPHTHALMIC QHS RF: 0 acetaminophen 500 mg capsule 500 mg PO QID PRN (Reason: generalized pain) RF: 0 diclofenac sodium 1 % gel 2 g TOPICAL QID RF: 0 albuterol sulfate [ProAir HFA] 90 mcg/actuation HFA aerosol inhaler 2 puff INHALATION QID PRN (Reason: shortness of breath or wheezing) Qty: 8 RF: 2 tramadol 50 mg tablet 50 mg PO QID Qty: 120 RF: 3 lorazepam 0.5 mg tablet 1 mg PO QHS PRN (Reason: anxiety) Qty: 30 RF: 0 gabapentin [Neurontin] 600 mg tablet 600 mg PO QID RF: 0 atorvastatin [Lipitor] 20 mg tablet 20 mg PO HS RF: 0 baclofen 20 mg tablet 20 mg PO BID PRN (Reason: Restless Leg(S)) RF: 0 citalopram [Celexa] 20 mg tablet 20 mg PO DAILY RF: 0 Follow Up Plan Disposition: [facility] Rehab Potential: Fair I certify that the patient requires SNF services: No Overall status at discharge: patient is not back to baseline Discharge Orders: Discharge Order (Routine); Ordered 01/29/21 Ordered By: Erik ROLAND VTE Deep Vein Thrombosis/Pulmonary Embolism Present on Admission: No
[2021-01-29] MEDS: LOSARTAN 50 MG TABLET PO SCH (20:51)
[2021-01-29] MEDS: TRAVOPROST OPHTH DROPS BOTTLE 2.5ML OU SCH (20:52)
[2021-01-29] MEDS: ATORVASTATIN 20 MG TABLET PO SCH (21:04)
[2021-01-29] MEDS: LIOTHYRONINE 5 MCG TABLET PO SCH (21:04)
--- NOTE | 2021-01-30 14:36 | EKG ---
[facility] Test Date: 2021-01-28 Pat Name: Marilyn Dunbar Department: ICU Room: 120C Gender: Female Corporate Legal Manager: : 1945 Requested By: Cornell Isidro Order Number: [id number] Reading MD: Hari Donald M.D. Measurements Intervals [place] Rate: 103 P: 100 MT: 160 QRS: 87 QRSD: 94 T: -61 QT: 384 QTc: 503 Interpretive Statements SINUS TACHYCARDIA BORDERLINE RIGHT AXIS DEVIATION CONSIDER ANTEROSEPTAL INFARCT ABNORMAL T, CONSIDER ISCHEMIA, DIFFUSE LEADS BORDERLINE PROLONGED QT INTERVAL Since previous ECG of 01-27-2021, 1922, SINUS MECHANISM, PVC ABNORMAL ECG Electronically Signed On 01-30-2021 14:35:48 PDT by Hari Donald M.D. /[id number]
--- NOTE | 2021-01-31 09:28 | EKG ---
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 Measurements Intervals [place] Rate: 96 P: [place]: QRS: 37 QRSD: 84 T: -42 QT: 352 QTc: 445 Interpretive Statements ATRIAL FIBRILLATION MULTIPLE PREMATURE COMPLEXES, VENT & SUPRAVEN ABERRANT COMPLEX, POSSIBLY SUPRAVENTRICULAR ABNRM R PROG, CONSIDER ASMI OR LEAD PLACEMENT NONSPECIFIC T ABNORMALITIES, INFERIOR LEADS Since previous ECG of 01-28-2021,M 0831, NEW AFIB, NO RAD, PVCs, ABNORMAL ECG Electronically Signed On 01-31-2021 9:27:49 PDT by Hari Donald M.D. /[id number]
== END 2021-01-29 21:45 | disposition short-term general hospital (02) | DRG 280 ==
LOC: MEDSUR 18:07 → ICU 01-27 20:10
PROVIDERS: ADMIT Internal Medicine; ATTEND Internal Medicine

== ENCOUNTER 2021-06-23 12:56 | Observation (INO) ==
--- NOTE | 2021-06-23 13:16 | Emergency Department Note ---
HPI General Chief complaint: Shortness of Breath/Dyspnea Stated complaint: SOB, weakness Time Seen by Provider: 06/23/21 13:08 Source: patient Mode of arrival: EMS Limitations: no limitations History of Present Illness HPI Narrative: Narrative: 76 yo F w/ h/o CAD, CHF, AF w/ RVR, CVA, p/w SOB, weakness. She was just seen here a few days ago in the ER w/ very similar complaints. At that time she was found to be hypotensive and tachycardic. She required levophed for a few hours but only a low dose, and we were able to titrate her off after cautiously giving IVF. She had a fairly extensive W/U w/ a CTA chest showing no PE, CT abd/pelvis showing no serious pathology, CBC and CMP for the most part unremarkable other than suggestion of dehydration. I ultimately DC'd her home after monitoring overnight and establishing F/U w/ her PCP. She comes in today from her primary care. She reports that she was initially feeling better. However the night before last she stayed up late to watch a movie. Yesterday she felt fatigued and spent all day in bed. Today she felt increasingly fatigued but was able to make her PCP appt. At the PCPs office she developed SOB, and was found to have SaO2 in the high 80s and systolic also in the high 80s. Her PCP called to let us know that she was coming back. Pt denies F/C, chest pain, cough, peripheral edema, N/V/D. Related Data Home Medications Medication Instructions Recorded Confirmed acetaminophen 500 mg capsule 500 mg PO QID PRN cap 03/17/19 06/19/21 citalopram 40 mg tablet 40 mg PO QDAY tab 04/30/21 06/19/21 bupropion HCl 150 mg 24 hr tablet, 150 mg PO DAILY 06/19/21 06/19/21 extended release Previous Rx's Medication Instructions Recorded liothyronine 5 mcg tablet See Rx Instructions .ROUTE 01/10/21 .COMPLEX #90 tab albuterol sulfate 90 mcg/actuation 2 inh INHALATION Q6H PRN #6.7 g 03/04/21 aerosol inhaler (Proventil HFA) clopidogrel 75 mg tablet (Plavix) 75 mg PO QDAY #90 tab 03/05/21 metoprolol succinate 25 mg 25 mg PO TID #270 tab 03/05/21 tablet,extended release 24 hr ondansetron 4 mg disintegrating 4 mg PO Q6-8H PRN #30 tab 03/05/21 tablet pantoprazole 40 mg tablet,delayed 40 mg PO QDAY #90 tab 03/05/21 release travoprost 0.004 % eye drops 1 drp OPHTHALMIC QHS #5 ml 03/05/21 (Travatan Z) nitroglycerin 0.4 mg sublingual 0.4 mg SUBLINGUAL Q5-15M PRN #30 03/28/21 tablet tab sucralfate 1 gram tablet (Carafate) 1 g PO QACHS #30 tab 04/07/21 spironolactone 25 mg tablet 25 mg PO QDAY #30 tab 05/23/21 apixaban 5 mg tablet (Eliquis) 5 mg PO BID #180 tab 05/29/21 atorvastatin 80 mg tablet 80 mg PO QHS #90 tab 05/29/21 Allergies Allergy/AdvReac Type Severity Reaction Status Date / Time No Known Drug Allergies Allergy Verified 06/23/21 13:00 Review of Systems ROS ROS Narrative: Narrative: All systems ED: reviewed and negative except as stated. PFSH Narrative Patient History Narrative: Narrative: Medical/Surgical/Family History All Active Problems (Updated 06/23/21 @ 18:09 by Addison Nice MD) Acute dyspnea (Acute) Acute hypotension (Acute) Acute respiratory alkalosis (Acute) Respiratory alkalosis (Acute) Acute respiratory failure (Acute) Dizziness (Acute) Acute dyspnea (Acute) CHF (congestive heart failure) (Acute) Acute hypotension (Acute) Acute dehydration (Acute) CAD (coronary artery disease) (Acute) Systolic heart failure secondary to coronary artery disease (Acute) Moderate major depression (Acute) Throat irritation (Acute) History of ST elevation myocardial infarction (STEMI) (Acute) Aspiration pneumonia (Acute) Atrial fibrillation with RVR (Acute) Unstable angina (Acute) Left wrist pain (Acute) Left shoulder pain (Acute) Muscle spasm (Acute) Rib pain on right side (Acute) Anxiety and depression (Acute) 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 (Acute) Muscle weakness of left upper extremity (Chronic) Fatigue (Chronic) Arthralgia (Chronic) Hyperlipidemia (Chronic) Vitamin D deficiency (Chronic) Bradycardia (Chronic) Arrhythmia (Chronic) Encounter for long-term (current) use of other medications (Chronic) GERD (gastroesophageal reflux disease) (Chronic) Varicose veins of other specified sites (Chronic) Hypothyroidism (Chronic) Cyst of left breast (Chronic) Cervical strain (Chronic) Smoker (Chronic) Diverticulitis (Chronic) Adenocarcinoma, colon (Chronic) Insomnia (Chronic) Carcinoma of colon (Chronic) Encounter for long-term (current) use of medications (Chronic) Cerebral infarction due to unspecified occlusion or stenosis of right middle cerebral artery (Chronic) HTN (hypertension) (Chronic) Chronic kidney disease (CKD), stage II (mild) (Chronic) Allergic rhinitis (Chronic) Numbness and tingling sensation of skin (Chronic) Depression (Chronic) Stress (Chronic) Benign neoplasm of transverse colon (Chronic) Ankle pain, left (Chronic) Weakness of left side of body (Chronic) Cataract, secondary obscuring vision (Chronic) Primary open-angle glaucoma, bilateral, mild stage (Chronic) Other localized visual field defect, bilateral (Chronic) Neuropathy (Chronic) Pseudophakia (Chronic) Spasticity (Chronic) Medical History (Updated 06/23/21 @ 18:09 by Addison Nice MD) Adenocarcinoma, colon Allergic rhinitis Ankle pain, left Arrhythmia Arthralgia Benign neoplasm of transverse colon Bradycardia Carcinoma of colon Cataract, secondary obscuring vision bilateral Cerebral infarction due to unspecified occlusion or stenosis of right middle cerebral artery Cervical strain with radiculopathy Chronic kidney disease (CKD), stage II (mild) Cyst of left breast Depression Diverticulitis Encounter for long-term (current) use of medications Encounter for long-term (current) use of other medications Fatigue GERD (gastroesophageal reflux disease) History of stroke (~10/2016) Right side stroke with left sided weakness in arm and leg HTN (hypertension) Hyperlipidemia Hypothyroidism Insomnia Neuropathy Numbness and tingling sensation of skin Other localized visual field defect, bilateral Primary open-angle glaucoma, bilateral, mild stage Pseudophakia Smoker Spasticity Stress Varicose veins of other specified sites Vitamin D deficiency Weakness of left side of body Surgical History History of bunionectomy of left great toe (~03/2011) Hx of section Hx of colonoscopy 01/10/2013 - lesions of colon, CT scan at [facility] 02/16/2018 - Adenomatous transverse colon polyp, repeat 3 yrs Hx of foot surgery (~11/2010) Left foot surgery, left sciatic pain radiates to left leg, after surgery 11/19 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 Family History Sister Cancer Mother Dementia Heart failure Social History Smoking Status: Former smoker Exam Narrative Narrative: Narrative: General Limitations: no limitations General appearance: Present alert, in no apparent distress and other (pale) Head Head: Present atraumatic and normocephalic ENT ENT: Present normal oropharynx and mucous membranes dry (slightly) Chest Chest: Present normal inspection and symmetric chest wall rise Respiratory Respiratory: Present normal lung sounds bilaterally; Absent respiratory distress, rales/crackles, wheezes or stridor Cardiovascular Cardiovascular: Present regular rate, normal rhythm, +S1, +S2 and other (2+ B/L radial pulses); Absent systolic murmur or diastolic murmur Adbominal Abdominal: Present soft and normal bowel sounds; Absent distention or tenderness Extremities Extremities: Absent pedal edema Neurological Neurological: Present alert and oriented X3 Psychiatric Psychiatric: Present normal affect Skin Skin: Present warm (WNL) and dry Course Vital Signs Vital signs: Vital Signs Temperature 97.6 F 06/23/21 12:57 Pulse Rate 80 06/23/21 12:57 Respiratory Rate 18 06/23/21 12:57 Blood Pressure 94/68 06/23/21 12:57 Pulse Oximetry (%) 100 06/23/21 12:57 Temperature 97.6 F 06/23/21 12:57 Pulse Rate 78 06/23/21 17:37 Respiratory Rate 20 06/23/21 14:00 Blood Pressure 94/69 06/23/21 17:37 Pulse Oximetry (%) 95 06/23/21 17:37 [facility] MDM Narrative Medical decision making narrative: Narrative: 76 yo F w/ h/o CAD, CHF, AF w/ RVR, CVA, p/w SOB, weakness. DDx - Sepsis, hemorrhagic shock, obstructive shock, dehydration, metabol ic/electrolyte d/o, ACS, PE Pt presented w/ soft BP but in NAD, and well appearing. Clinically sepsis was unlikely and she had no signs/symptoms of an active infection. She had no anemia, no active bleeding. There was nothing to suggest submassive PE and her recent CTA was negative. There was no clear evidence of significant dehydration. Viral panel was negative. CMP showed mild decrease in CO2 o/w unremarkable. EKG showed no ischemia or arrhythmia. I did check an echo which actually showed that her EF had improved to 55%. Her ABG showed a significant respiratory alkalosis w/ pH 7.67 and CO2<19. She did report feeling anxious and while I was out of the room RT and RN noted her hypoventilating. I thus Tx'd w/ 0.5mg IV ativan and she reported resolution of her SOB. Her BP stabilized w/ 1L NS. I d/w the hospitalist. The etiology was unclear for her hypotension although it may be related to her alkalosis. He also considered adrenal insufficiency but stated that he would decide on whether or not steroids were required after evaluating the pt. Lab Data Lab results reviewed: Yes I reviewed the patient's lab results. Result diagrams: 06/23/21 14:35 06/23/21 14:35 Labs: Lab Results 06/23/21 06/23/21 06/23/21 Range/Units 14:35 14:35 14:35 WBC 6.3 (4.5-11.0) K/mcL RBC 4.20 (3.59-5.38) M/mcL Hgb 13.3 (11.2-15.7) g/dL Hct 39.2 (34.1-44.9) % MCV 93.3 (80.0-100.0) fL MCH 31.7 (26.0-34.0) pg MCHC 33.9 (31.0-36.0) g/dL RDW 13.1 (11.5-14.5) % Plt Count 202 (140-440) K/mcL MPV 10.9 H (7.4-10.4) fL Neut % (Auto) 59.2 (38.0-78.0) % Lymph % (Auto) 30.4 (15.5-49.0) % [place] % (Auto) 8.7 (1.0-12.0) % Eos % (Auto) 1.4 (0.0-7.0) % Baso % (Auto) 0.3 (0.0-2.0) % Lymph # (Auto) 1.92 (1.50-4.80) K/mcL [place] # (Auto) 0.55 (0.10-0.90) K/mcL Eos # (Auto) 0.09 (0.00-0.70) K/mcL Baso # (Auto) 0.02 (0.00-0.30) K/mcL Absolute Neutrophils 3.73 (1.80-8.00) K/mcL Sodium 133 (133-145) mmol/L Potassium 3.4 (3.3-5.1) mmol/L Chloride 102 (96-108) mmol/L Carbon Dioxide 20 L (22-30) mmol/L Anion Gap 11.0 (8.0-16.0) BUN 12 (8-23) mg/dL Creatinine 1.1 (0.6-1.1) mg/dL GFR Calculation 49 Glucose 83 (70-105) mg/dL Calcium 8.6 (8.6-10.4) mg/dL Total Bilirubin 0.5 (0.1-1.0) mg/dL AST 19 (<32) U/L ALT 14 (<40) U/L Alkaline Phosphatase 82 (39-117) U/L NT-Pro-B Natriuret Pep 168.9 (<450.0) pg/mL Total Protein 6.1 (5.9-8.4) gm/dL Albumin 3.3 (3.2-5.2) gm/dL Globulin 2.8 (2.2-3.7) gm/dL Albumin/Globulin Ratio 1.2 (1.0-2.3) Procalcitonin 0.04 (<0.10) ng/mL ED POC Tests ED POC Tests: BARRETT - Influenza A Negative BARRETT - Influenza B Negative BARRETT - SARS Antigen Negative EKG Data EKG #1: EKG attestation: Yes I reviewed and interpreted this EKG. and Yes There are no EKG findings of acute coronary syndrome EKG results narrative: Sinus rate of 73 Normal NM, QRS, QT interval. [id number]. No STEMI, Brugada, Wellens, DeWinters. No change from previous EKG. CC TIME Critical Care Time Attestation: Approximately 35 minutes of critical care time was used in order to assess and manage the high probability of imminent or life threatening deterioration to cardiovascular system which required my highest level of preparedness and interventions with frequent patient assessments. This time is excluding time spent on separately billable procedures. Discharge Plan Patient/Caregiver Discharge Instructions Pt seen by [employer]PERVISOR/PA only: No Clinical Impression: Acute dyspnea, Acute hypotension, Acute respiratory alkalosis Patient Disposition: Xfer As Inpt ([facility]) Condition: Fair Follow up with: Arabella Diaz ARNP [Primary Care Provider] - Prescriptions: No Action liothyronine 5 mcg tablet See Rx Instructions .ROUTE .COMPLEX Qty: 90 2RF Dose Instruction: TAKE ONE TABLET BY MOUTH AT BEDTIME DAILY Rx Instructions: TAKE ONE TABLET BY MOUTH AT BEDTIME DAILY albuterol sulfate [Proventil HFA] 90 mcg/actuation HFA aerosol inhaler 2 inh inhalation Q6H PRN (Reason: shortness of breath or wheezing) Qty: 6.7 6RF clopidogrel [Plavix] 75 mg tablet 75 mg PO QDAY Qty: 90 3RF metoprolol succinate 25 mg tablet extended release 24 hr 25 mg PO TID Qty: 270 1RF Rx Instructions: Take 2 tabs in am and 1 tab in evening ondansetron 4 mg tablet,disintegrating 4 mg PO Q6-8H PRN (Reason: nausea and vomiting) Qty: 30 3RF pantoprazole 40 mg tablet,delayed release (DR/EC) 40 mg PO QDAY Qty: 90 3RF Travatan Z 0.004 % drops 1 drp OPHTHALMIC QHS Qty: 5 0RF sucralfate [Carafate] 1 gram tablet 1 g PO QACHS Qty: 30 0RF Rx Instructions: put in 5cc of water to dissolve, avoid around other meds. Eliquis 5 mg tablet 5 mg PO BID Qty: 180 0RF atorvastatin 80 mg tablet 80 mg PO QHS Qty: 90 1RF acetaminophen 500 mg capsule 500 mg PO QID PRN (Reason: generalized pain) 0RF spironolactone 25 mg tablet 25 mg PO QDAY Qty: 30 3RF nitroglycerin 0.4 mg tablet, sublingual 0.4 mg sublingual Q5-15M PRN (Reason: chest pain) Qty: 30 2RF Rx Instructions: do not exceed 3 doses per episode citalopram 40 mg tablet 40 mg PO QDAY 0RF bupropion HCl 150 mg tablet extended release 24 hr 150 mg PO DAILY 0RF
[2021-06-23] MEDS ORDERED: LORazepam 2 MG/ML VIAL IV ONE (13:29)
--- NOTE | 2021-06-23 13:38 | XRay Report ---
CLINICAL INFORMATION: Dyspnea COMPARISON: 06/20/2021. TECHNIQUE: Portable FINDINGS: The heart size, mediastinum and pulmonary vessels are unremarkable. The lungs are clear. There are no effusions. The bones and soft tissues are within normal limits. IMPRESSION: Normal chest. Interpreted and Authenticated by: Izaiah Torres 06/23/21
[2021-06-23] MEDS ORDERED: ACETAMINOPHEN 325 MG TABLET PO ONE (13:52)
--- NOTE | 2021-06-23 14:38 | Cat Scan Report ---
CLINICAL INFORMATION: Extremity weakness. COMPARISON: None. TECHNIQUE: 2.5 mm helical slices were obtained in the skull base to vertex. Following reconstruction, axial reformatted images were reviewed at bone and parenchymal windows. The exam was performed using radiation dose optimization techniques including, but not limited to, automated exposure control, adjustment of the mA and/or kV according to patient size and use of iterative reconstruction technique. FINDINGS: The ventricles, sulci, fissures, and cisterns are enlarged compatible with mild age-related atrophy.. No extra-axial fluid collections are identified. A large remote cortical-based infarct in the right MCA distribution involves the right temporal, frontal and parietal lobes. The cerebrum, brainstem and cerebellum are, otherwise, unremarkable. There is no evidence of hemorrhage, mass effect, or edema. Bone windows show no osseous abnormality. IMPRESSION: Large old cortical-based infarct right MCA distribution involving the temporal, posterior frontal and anterior parietal lobes. No acute findings Interpreted and Authenticated by: Izaiah Torres 06/23/21
[2021-06-23 15:26] LABS: Basophils # (Auto) 0.02 K/mcL (0.00-0.30); Basophils % (Auto) 0.3 % (0.0-2.0); Eosinophils # (Auto) 0.09 K/mcL (0.00-0.70); Eosinophils % (Auto) 1.4 % (0.0-7.0); Hematocrit 39.2 % (34.1-44.9); Hemoglobin 13.3 g/dL (11.2-15.7); Lymphocytes # (Auto) 1.92 K/mcL (1.50-4.80); Lymphocytes % (Auto) 30.4 % (15.5-49.0); Mean Cell Volume 93.3 fL (80.0-100.0); Mean Corpuscular HGB Conc 33.9 g/dL (31.0-36.0); Mean Platelet Volume 10.9 fL (7.4-10.4); Monocytes # (Auto) 0.55 K/mcL (0.10-0.90); Monocytes % (Auto) 8.7 % (1.0-12.0); Neutrophils % (Auto) 59.2 % (38.0-78.0); Platelet Count 202 K/mcL (140-440); Red Cell Distribution Width 13.1 % (11.5-14.5); WBC 6.3 K/mcL (4.5-11.0)
[2021-06-23 15:48] LABS: proBNP 168.9 pg/mL (<450.0)
[2021-06-23 15:49] LABS: ALT/SGPT 14 U/L (<40); AST/SGOT 19 U/L (<32); Albumin 3.3 gm/dL (3.2-5.2); Albumin/Globulin Ratio 1.2 (1.0-2.3); Alkaline Phosphatase 82 U/L (39-117); Bilirubin,Total 0.5 mg/dL (0.1-1.0); Blood Urea Nitrogen 12 mg/dL (8-23); Calcium 8.6 mg/dL (8.6-10.4); Carbon Dioxide 20 mmol/L (22-30); Chloride 102 mmol/L (96-108); Globulin 2.8 gm/dL (2.2-3.7); Glomerular Filtration Rate 49; Glucose 83 mg/dL (70-105)
--- NOTE | 2021-06-23 17:31 | Internal Med History&Physical ---
HPI History of Present Illness Patient information: Note initiated : 06/23/21 at 5:30 pm Service Date, if different from initiated Date: [] Patient: Marilyn Dunbar a 76 y/o F admitted on for SOB, weakness. Chief Complaint: [shortness of breath ] Chief complaint: shortness of breath History of present illness: Ms. Dunbar is a 76 year old F woman h/o CHF, atrial fibrillation, hypothyroidism, depression, p/w recurrent shortness of breath. She presented to our ED on 06/20 for the same CC. Extensive workup was performed including CT angiogram chest to rule out pulmonary embolism. She also developed hypotension, and she was being kept in the ED for transient Levophed drip. She returned back to her baseline and was being discharged home with PCP follow up made for her this morning. While in the PCP office earlier today, she developed another episode of shortness of breath. She denies any anxiety or panic. She denied any chest pain, cough, sputum production, wheezing, fever, chills, or sweating. She was being sent back to our ED for re-evaluation. Vital signs significant for soft blood pressure with blood pressure as low as 80s/40s mmHg. Labs significant for lack of leukocytosis with WBC 6.3. ABG showing pH 7.69 with pCO2<20, indicative of respiratory alkalosis. CXR no acute intrathoracic pathologies. 2D echocardiogram was performed and prelim results are within normal limits with LVEF estimated to be 55% with normal diastolic functions. Ativan 0.5mg IV once were given in the ED, and her symptoms of shortness of breath was resolved. However, her blood pressure is now long again at 80s/60s mmHg with MAP of 70s mmHg. Constitutional Constitutional: Absent chills, excessive sweating, fatigue, fever(s) or weakness EENT Eyes: Absent blurry vision, change in vision, loss of vision or other visual disturbances Ears: Absent decreased hearing or tinnitus Nose, mouth and throat: Absent abnormal hearing, dry mouth, headache(s), nasal congestion or sore throat Cardiovascular Cardiovascular: Absent chest pain, chest pain at rest, edema, irregular heart rhythm or palpatations Respiratory Respiratory: Present dyspnea; Absent cough, dyspnea on exertion or wheezing Gastrointestinal Gastrointestinal: Absent abdominal pain, constipation, diarrhea, nausea or vomiting Musculoskeletal Musculoskeletal: Absent back pain, deformity, limited range of motion, muscle cramps, muscle weakness or numbness Integumentary Integumentary: Absent lesions, rash or wounds Neurological Neurological: Absent focal weakness, headache(s) or numbness Psychiatric Psychiatric: Absent anxiety, depression or hallucinations PFSH PFSH All Active Problems (Updated 06/23/21 @ 17:44 by Erik Joiner MD) Respiratory alkalosis (Acute) Acute respiratory failure (Acute) Dizziness (Acute) Acute dyspnea (Acute) CHF (congestive heart failure) (Acute) Acute hypotension (Acute) Acute dehydration (Acute) CAD (coronary artery disease) (Acute) Systolic heart failure secondary to coronary artery disease (Acute) Moderate major depression (Acute) Throat irritation (Acute) History of ST elevation myocardial infarction (STEMI) (Acute) Aspiration pneumonia (Acute) Atrial fibrillation with RVR (Acute) Unstable angina (Acute) Left wrist pain (Acute) Left shoulder pain (Acute) Muscle spasm (Acute) Rib pain on right side (Acute) Anxiety and depression (Acute) 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 (Acute) Muscle weakness of left upper extremity (Chronic) Fatigue (Chronic) Arthralgia (Chronic) Hyperlipidemia (Chronic) Vitamin D deficiency (Chronic) Bradycardia (Chronic) Arrhythmia (Chronic) Encounter for long-term (current) use of other medications (Chronic) GERD (gastroesophageal reflux disease) (Chronic) Varicose veins of other specified sites (Chronic) Hypothyroidism (Chronic) Cyst of left breast (Chronic) Cervical strain (Chronic) Smoker (Chronic) Diverticulitis (Chronic) Adenocarcinoma, colon (Chronic) Insomnia (Chronic) Carcinoma of colon (Chronic) Encounter for long-term (current) use of medications (Chronic) Cerebral infarction due to unspecified occlusion or stenosis of right middle cerebral artery (Chronic) HTN (hypertension) (Chronic) Chronic kidney disease (CKD), stage II (mild) (Chronic) Allergic rhinitis (Chronic) Numbness and tingling sensation of skin (Chronic) Depression (Chronic) Stress (Chronic) Benign neoplasm of transverse colon (Chronic) Ankle pain, left (Chronic) Weakness of left side of body (Chronic) Cataract, secondary obscuring vision (Chronic) Primary open-angle glaucoma, bilateral, mild stage (Chronic) Other localized visual field defect, bilateral (Chronic) Neuropathy (Chronic) Pseudophakia (Chronic) Spasticity (Chronic) Medical History (Updated 06/23/21 @ 17:44 by Erik Joiner MD) Adenocarcinoma, colon Allergic rhinitis Ankle pain, left Arrhythmia Arthralgia Benign neoplasm of transverse colon Bradycardia Carcinoma of colon Cataract, secondary obscuring vision bilateral Cerebral infarction due to unspecified occlusion or stenosis of right middle cerebral artery Cervical strain with radiculopathy Chronic kidney disease (CKD), stage II (mild) Cyst of left breast Depression Diverticulitis Encounter for long-term (current) use of medications Encounter for long-term (current) use of other medications Fatigue GERD (gastroesophageal reflux disease) History of stroke (~10/2016) Right side stroke with left sided weakness in arm and leg HTN (hypertension) Hyperlipidemia Hypothyroidism Insomnia Neuropathy Numbness and tingling sensation of skin Other localized visual field defect, bilateral Primary open-angle glaucoma, bilateral, mild stage Pseudophakia Smoker Spasticity Stress Varicose veins of other specified sites Vitamin D deficiency Weakness of left side of body Surgical History History of bunionectomy of left great toe (~03/2011) Hx of section Hx of colonoscopy 01/10/2013 - lesions of colon, CT scan at [facility] 02/16/2018 - Adenomatous transverse colon polyp, repeat 3 yrs Hx of foot surgery (~11/2010) Left foot surgery, left sciatic pain radiates to left leg, after surgery 11/19 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 Family History Sister Cancer Mother Dementia Heart failure Social History marital status: MEDS/ALLERGIES Home Medications and Allergies Home Medications Medication Instructions Recorded Confirmed Type acetaminophen 500 mg capsule 500 mg PO QID PRN cap 03/17/19 06/23/21 History liothyronine 5 mcg tablet See Rx Instructions .ROUTE 01/10/21 06/23/21 Rx .COMPLEX #90 tab albuterol sulfate 90 mcg/actuation 2 inh INHALATION Q6H PRN #6.7 g 03/04/21 06/23/21 Rx aerosol inhaler (Proventil HFA) clopidogrel 75 mg tablet (Plavix) 75 mg PO QDAY #90 tab 03/05/21 06/23/21 Rx metoprolol succinate 25 mg 25 mg PO TID #270 tab 03/05/21 06/23/21 Rx tablet,extended release 24 hr ondansetron 4 mg disintegrating 4 mg PO Q6-8H PRN #30 tab 03/05/21 06/23/21 Rx tablet pantoprazole 40 mg tablet,delayed 40 mg PO QDAY #90 tab 03/05/21 06/23/21 Rx release travoprost 0.004 % eye drops 1 drp OPHTHALMIC QHS #5 ml 03/05/21 06/23/21 Rx (Travatan Z) nitroglycerin 0.4 mg sublingual 0.4 mg SUBLINGUAL Q5-15M PRN #30 03/28/21 06/23/21 Rx tablet tab sucralfate 1 gram tablet (Carafate) 1 g PO QACHS #30 tab 04/07/21 06/23/21 Rx citalopram 40 mg tablet 40 mg PO QDAY tab 04/30/21 06/23/21 History spironolactone 25 mg tablet 25 mg PO QDAY #30 tab 05/23/21 06/23/21 Rx apixaban 5 mg tablet (Eliquis) 5 mg PO BID #180 tab 05/29/21 06/23/21 Rx atorvastatin 80 mg tablet 80 mg PO QHS #90 tab 05/29/21 06/23/21 Rx bupropion HCl 150 mg 24 hr tablet, 150 mg PO DAILY 06/19/21 06/23/21 History extended release Allergies Allergy/AdvReac Type Severity Reaction Status Date / Time No Known Drug Allergies Allergy Verified 06/23/21 13:00 EXAM Constitutional Vitals: Temp Pulse Resp BP Pulse Ox 36.4 C 78 20 85/64 95 06/23/21 12:57 06/23/21 17:18 06/23/21 14:00 06/23/21 17:16 06/23/21 17:18 General appearance: cooperative, no acute distress and thin Exam: lethargic Head Head exam: Present atraumatic and normocephalic Eye Eye exam: Present EOMI and PERRL ENT ENT exam: Present mucous membranes moist, normal exam and normal external ear exam Neck Neck exam: Present normal inspection; Absent lymphadenopathy, tenderness or thyromegaly Respiratory Respiratory exam: Present decreased breath sounds; Absent accessory muscle use, respiratory distress or wheezes Cardiovascular Cardiovascular exam: Present irregular rhythm; Absent JVD GI/Abdominal GI/Abdominal exam: Present normal bowel sounds and soft; Absent organomegaly or tenderness Extremities Exam Extremities exam: Present full ROM, normal capillary refill and normal inspection; Absent tenderness Neurological Exam Neurological exam: Present alert, CN II-XII intact and oriented X3; Absent motor sensory deficit Psychiatric Psychiatric exam: Present normal affect and normal mood; Absent anxious or depressed Skin Skin exam: Present dry and intact DATA Data Completed and Pending Labs: Labs from last 24 hours 06/23/21 06/23/21 06/23/21 14:35 14:35 14:35 WBC 6.3 RBC 4.20 Hgb 13.3 Hct 39.2 MCV 93.3 MCH 31.7 MCHC 33.9 RDW 13.1 Plt Count 202 MPV 10.9 H Neut % (Auto) 59.2 Lymph % (Auto) 30.4 Dare % (Auto) 8.7 Eos % (Auto) 1.4 Baso % (Auto) 0.3 Lymph # (Auto) 1.92 Dare # (Auto) 0.55 Eos # (Auto) 0.09 Baso # (Auto) 0.02 Absolute Neutrophils 3.73 Sodium 133 Potassium 3.4 Chloride 102 Carbon Dioxide 20 L Anion Gap 11.0 BUN 12 Creatinine 1.1 GFR Calculation 49 Glucose 83 Calcium 8.6 Total Bilirubin 0.5 AST 19 ALT 14 Alkaline Phosphatase 82 NT-Pro-B Natriuret Pep 168.9 Total Protein 6.1 Albumin 3.3 Globulin 2.8 Albumin/Globulin Ratio 1.2 Procalcitonin 0.04 A/P Assessment and plan (1) Acute respiratory failure: Status: Acute (2) Respiratory alkalosis: Status: Acute (3) CHF (congestive heart failure): Status: Acute (4) CAD (coronary artery disease): Status: Acute (5) Systolic heart failure secondary to coronary artery disease: Status: Acute (6) Moderate major depression: Status: Acute (7) Atrial fibrillation with RVR: Status: Acute (8) GERD (gastroesophageal reflux disease): Status: Chronic (9) Hypothyroidism: Status: Chronic Qualifiers: Hypothyroidism type: acquired Qualified Code(s): E03.9 - Hypothyroidism, unspecified Narrative A/P Narrative: Assessment and Plans: 1. Acute respiratory failure with respiratory alkalosis: DDx: panic attack, depression with anxiety with anxiety induced tachypnea CT angiogram chest performed and pulmonary embolism ruled out 2D echocardiogram prelim results showing good LVEF of 55% Observation ICU telemetry Continue Busprione and Citalopram Ativan 0.5mg IV 2-4hr PRN anxiety Continuous pulse oximetry Supplemental oxygen therapy as needed titrate to achieve spo2>=92% 2. Hypotensives: Recurrent in nature, first seen 3 days ago in our ED DDx: adrenal insufficiency vs medications (benzodiazepine) induced Hold beta shelia from home regimen s/p 1L IV fluid bolus given in the ED Levophed drip stands by with goal MAP>=65mmHg TSH with reflexive free T4 to rule out hypothyroidism status Cortisol (random and AM) to check for adrenal insufficiency 3. history of systolic CHF: Hold beta shelia from home regimen Aldactone 4. hypothyroidism: TSH with reflexive free T4 to rule out hypothyroidism status Continue oral thyroid replacement therapy for now 5. h/o GERD: Continue oral PPI and sucralfate from home regimen 6. Major depression: Continue Citalopram from home regimen Continue Wellbutrin from home regimen 7. h/o CAD: Continue Aspirin and Plavix and statin Hold beta shelia given soft blood pressure 8. Atrial fibrillation: Hold beta shelia given soft blood pressure Continue Eliquis GI ppx: Continue oral PPI and sucralfate from home regimen DVT ppx: Eliquis Code status: Full Prognosis: guarded Disposition: observation ICU Critical Care Time: 45min Time Spent With Patient Time: Total time spent is greater than 50% in coordination of care (as documented) at patient's floor/unit and/or counseling patient: Total time spent with greater than 50% in coordination of care (as documented) at patient's floor/unit and/or counseling patient:: Greater than 35 minutes
[2021-06-23 18:28] LABS: Appearance,Urine CLEAR (Clear); Bilirubin,Urine Negative (Negative); Color,Urine YELLOW; Culture Indicated,Urine No; Glucose,Urine (UA) Negative (Negative); Ketones,Urine 5 mg/dL (Negative); Leukocyte Esterase,Urine Negative /uL (Negative); Nitrate,Urine Negative (Negative); Protein,Urine Negative (Negative); Specific Gravity,Urine 1.015 (1.000-1.035); Urine Blood Negative (Negative); Urobilinogen,Urine Negative
[2021-06-23] MEDS ORDERED: LORazepam 2 MG/ML VIAL IV PRN (19:02)
[2021-06-23] MEDS ORDERED: IPRATROPIUM/ALBUTEROL 3 ML AMPUL.NEB NEB PRN (19:02)
[2021-06-23] MEDS ORDERED: ALBUTEROL SULFATE 200 PUFF INHALER INH PRN (19:02)
[2021-06-23] MEDS ORDERED: ACETAMINOPHEN 325 MG TABLET PO PRN (19:02)
[2021-06-23] MEDS ORDERED: NITROGLYCERIN 0.4 MG TAB.SUBL SL PRN (19:13)
[2021-06-23] MEDS ORDERED: TRAVOPROST OPHTH DROPS BOTTLE 2.5ML OU SCH (21:00)
[2021-06-23] MEDS: NOREPINEPHRINE BITARTRATE 8 MG in 0.9 % SODIUM CHLORIDE 242 ML IV SCH (22:01)
[2021-06-23] MEDS: 0.9 % SODIUM CHLORIDE 250 ML IV SCH (22:01)
[2021-06-23] MEDS: SUCRALFATE 1 GM TABLET PO SCH (22:37)
[2021-06-23] MEDS: LIOTHYRONINE 5 MCG TABLET PO SCH (22:37)
[2021-06-23] MEDS: ATORVASTATIN 40 MG TABLET PO SCH (22:37)
[2021-06-23] MEDS: APIXABAN 5 MG TABLET PO SCH (22:37)
[2021-06-23] MEDS: DOCUSATE SODIUM 100 MG CAPSULE PO SCH (22:38)
[2021-06-23] MEDS: 0.9 % SODIUM CHLORIDE 10 ML SYRINGE IV SCH (22:39)
[2021-06-23 22:53] LABS: ALT/SGPT 14 U/L (<40); AST/SGOT 18 U/L (<32); Albumin 3.3 gm/dL (3.2-5.2); Albumin/Globulin Ratio 1.3 (1.0-2.3); Alkaline Phosphatase 80 U/L (39-117); Bilirubin,Total 0.3 mg/dL (0.1-1.0); Blood Urea Nitrogen 14 mg/dL (8-23); Calcium 8.6 mg/dL (8.6-10.4); Carbon Dioxide 20 mmol/L (22-30); Chloride 103 mmol/L (96-108); Globulin 2.6 gm/dL (2.2-3.7); Glomerular Filtration Rate 62; Glucose 87 mg/dL (70-105); Thyroid Stimulating Hormone 5.84 uIU/mL (0.27-5.01)
[2021-06-24] MEDS: 0.9 % SODIUM CHLORIDE 10 ML SYRINGE IV SCH ×3 (05:51→20:53)
[2021-06-24] MEDS: 0.9 % SODIUM CHLORIDE 250 ML IV SCH (07:43)
[2021-06-24] MEDS: PANTOPRAZOLE 40 MG TABLET PO SCH (07:47)
[2021-06-24] MEDS: SUCRALFATE 1 GM TABLET PO SCH ×4 (07:47→20:54)
[2021-06-24 09:08] LABS: Basophils # (Auto) 0.02 K/mcL (0.00-0.30); Basophils % (Auto) 0.3 % (0.0-2.0); Eosinophils # (Auto) 0.14 K/mcL (0.00-0.70); Eosinophils % (Auto) 2.4 % (0.0-7.0); Hemoglobin 12.6 g/dL (11.2-15.7); Lymphocytes # (Auto) 1.66 K/mcL (1.50-4.80); Lymphocytes % (Auto) 28.2 % (15.5-49.0); Mean Cell Volume 96.6 fL (80.0-100.0); Mean Corpuscular HGB Conc 31.5 g/dL (31.0-36.0); Mean Platelet Volume 11.2 fL (7.4-10.4); Monocytes # (Auto) 0.53 K/mcL (0.10-0.90); Neutrophils % (Auto) 60.1 % (38.0-78.0); Platelet Count 188 K/mcL (140-440); RBC 4.14 M/mcL (3.59-5.38); Red Cell Distribution Width 13.2 % (11.5-14.5); WBC 5.9 K/mcL (4.5-11.0)
[2021-06-24 09:40] LABS: ALT/SGPT 11 U/L (<40); AST/SGOT 19 U/L (<32); Albumin 3.2 gm/dL (3.2-5.2); Albumin/Globulin Ratio 1.2 (1.0-2.3); Alkaline Phosphatase 71 U/L (39-117); Bilirubin,Total 0.5 mg/dL (0.1-1.0); Blood Urea Nitrogen 12 mg/dL (8-23); Calcium 8.6 mg/dL (8.6-10.4); Carbon Dioxide 18 mmol/L (22-30); Chloride 107 mmol/L (96-108); Globulin 2.6 gm/dL (2.2-3.7); Glomerular Filtration Rate 62; Glucose 59 mg/dL (70-105)
[2021-06-24] MEDS: buPROPion 150 MG TAB.XL.24H PO SCH (09:45)
[2021-06-24] MEDS: DOCUSATE SODIUM 100 MG CAPSULE PO SCH ×2 (09:45→20:54)
[2021-06-24] MEDS: CITALOPRAM 20 MG TABLET PO SCH (09:45)
[2021-06-24] MEDS: APIXABAN 5 MG TABLET PO SCH ×2 (09:45→20:54)
[2021-06-24] MEDS: SPIRONOLACTONE 25 MG TABLET PO SCH (09:45)
--- NOTE | 2021-06-24 09:47 | EKG ---
[facility] Test Date: 2021-06-23 Pat Name: Marilyn Dunbar Department: ED Room: Gender: Female Transfer Table Operator: : 1945 Requested By: Addison Nice Order Number: [id number] Reading MD: Johann Oliveros Measurements Intervals [place] Rate: 73 P: 86 TN: 168 QRS: 39 QRSD: 86 T: -53 QT: 432 QTc: 476 Interpretive Statements Sinus rhythm Atrial premature complex Nonspecific ST changes lateral leads Low voltage, extremity and precordial leads Electronically Signed On 06-24-2021 9:47:45 PST by Johann Oliveros /store/M0/[id number]/[id number].pdf
[2021-06-24] MEDS: NOREPINEPHRINE BITARTRATE 8 MG in 0.9 % SODIUM CHLORIDE 242 ML IV SCH (09:54)
[2021-06-24 10:36] LABS: Phosphorous 4.4 mg/dL (2.5-4.5)
[2021-06-24] MEDS: SENNOSIDES 1 TABLET PO SCH (11:34)
[2021-06-24] MEDS: CLOPIDOGREL 75 MG TABLET PO SCH (11:36)
[2021-06-24] MEDS ORDERED: NON FORMULARY MEDICATION 1 DOSE MISCELL (Acetaminophen 500 mg capsule) PO PRN (12:49)
[2021-06-24] MEDS ORDERED: NITROGLYCERIN 0.4 MG TAB.SUBL SL PRN (14:26)
--- NOTE | 2021-06-24 16:25 | Internal Med Progress Note ---
SUBJECTIVE Subjective Patient information: Note initiated : 06/24/21 at 4:23 pm Service Date, if different from initiated Date: [] Patient: Marilyn Dunbar a 76 y/o F admitted on 06/23/21 for SOB, weakness. Chief Complaint: [SOB] Interval history: History of present illness: Ms. Dunbar is a 76 year old F woman h/o CHF, atrial fibrillation, hypothy roidism, depression, p/w recurrent shortness of breath. She presented to our ED on 06/20 for the same CC. Extensive workup was performed including CT angiogram chest to rule out pulmonary embolism. She also developed hypotension, and she was being kept in the ED for transient Levophed drip. She returned back to her baseline and was being discharged home with PCP follow up made for her this morning. While in the PCP office earlier today, she developed another episode of shortness of breath. She denies any anxiety or panic. She denied any chest pain, cough, sputum production, wheezing, fever, chills, or sweating. She was being sent back to our ED for re-evaluation. Vital signs significant for soft blood pressure with blood pressure as low as 80s/40s mmHg. Labs significant for lack of leukocytosis with WBC 6.3. ABG showing pH 7.69 with pCO2<20, indicative of respiratory alkalosis. CXR no acute intrathoracic pathologies. 2D echocardiogram was performed and prelim results are within normal limits with LVEF estimated to be 55% with normal diastolic functions. Ativan 0.5mg IV once were given in the ED, and her symptoms of shortness of breath was resolved. However, her blood pressure is now long again at 80s/60s mmHg with MAP of 70s mmHg. 06/24: Been on room air since overnight. Did not require Levophed drip. Currently has mild SOB. Had substernal sharp chest pain earlier this afternoon, spontaneous resolved after 5min. Denies anxiety. Constitutional Vitals: Vital Signs Temp Pulse Resp BP Pulse Ox 36.8 C 88 19 101/73 98 06/24/21 12:01 06/24/21 14:01 06/24/21 14:01 06/24/21 14:01 06/24/21 14:01 Period Temp Pulse Resp BP Sys/Barakat Pulse Ox Last 24 Hr 36.5 C-37.2 C 45-102 9-25 77-122/24-89 85-100 Intake and Output 06/24/21 06/24/21 06/24/21 05:59 13:59 21:59 Intake Total 720 Output Total 600 700 350 Balance -600 20 -350 Intake & Output: Intake & Output 06/24/21 06/24/21 06/24/21 05:59 13:59 21:59 Intake Total 720 Output Total 600 700 350 Balance -600 20 -350 Intake: Oral 720 Output: Void Amount 600 700 Urine/Stool Mix 350 Other: Meal Breakfast Lunch Percent of Meal Consumed 100% 100% Feeding Ability Independent Urine Appearance Clear Clear Urine Color Bright Yellow Pale Stool Size Moderate Moderate Stool Color Brown Brown Stool Consistency Formed Liquid Liquid # Bowel Movements 1 General appearance: average body habitus, cooperative and no acute distress Head Head exam: Present atraumatic and normal inspection Eye Eye exam: Present normal appearance ENT ENT exam: Present mucous membranes moist, normal exam and normal external ear exam Neck Neck exam: Present normal inspection Respiratory Respiratory exam: Present normal respiratory exam Cardiovascular Cardiovascular exam: Present irregular rhythm GI/Abdominal GI/Abdominal exam: Present normal bowel sounds Back Exam Back exam: Present normal inspection Neurological Exam Neurological exam: Present alert and oriented X3 Skin Skin exam: Present intact and warm OBJ DATA Labs CBC & Chem 7: 06/24/21 05:13 06/24/21 05:12 Labs: Abnormal Lab Results 06/24/21 06/24/21 06/23/21 05:13 05:12 21:36 MPV 11.2 H Potassium 3.2 L Carbon Dioxide 18 L 20 L Glucose 59 L Total Protein 5.8 L TSH 5.84 H Urine Ketones 06/23/21 06/23/21 06/23/21 17:40 14:35 14:35 MPV 10.9 H Potassium Carbon Dioxide 20 L Glucose Total Protein TSH Urine Ketones 5 A Meds: Medications Acetaminophen (Acetaminophen 325 Mg Tablet) 650 mg PO Q4-6HP PRN; Protocol PRN Reason: Per Pain Protocol/Fever > 101 Albuterol Sulfate (Albuterol Sulfate 200 Puff Inhaler) 2 puff INH Q6HP PRN PRN Reason: shortness of breath or wheezin Albuterol/Ipratropium (Ipratropium/Albuterol 3 Ml Ampul.Neb) 3 ml NEB Q4HRT PRN PRN Reason: Wheezing Apixaban (Apixaban 5 Mg Tablet) 5 mg PO BID [facility] Last Admin: 06/24/21 09:45 Dose: 5 mg Documented by: Atorvastatin Calcium (Atorvastatin 40 Mg Tablet) 80 mg PO QHS [facility] Last Admin: 06/23/21 22:37 Dose: 80 mg Documented by: Bupropion HCl (Bupropion 150 Mg Tab.Xl.24h) 150 mg PO DAILY [facility] Last Admin: 06/24/21 09:45 Dose: 150 mg Documented by: Citalopram Hydrobromide (Citalopram 20 Mg Tablet) 40 mg PO QDAY [facility] Last Admin: 06/24/21 09:45 Dose: 40 mg Documented by: Clopidogrel Bisulfate (Clopidogrel 75 Mg Tablet) 75 mg PO QDAY [facility] Last Admin: 06/24/21 11:36 Dose: 75 mg Documented by: Docusate Sodium (Docusate Sodium 100 Mg Capsule) 100 mg PO BID [facility] Last Admin: 06/24/21 09:45 Dose: Not Given Documented by: Norepinephrine Bitartrate 8 mg (/ Sodium Chloride) 250 mls @ 18.75 mls/hr IV Q14H [facility]; Protocol Last Admin: 06/24/21 09:54 Dose: Not Given Documented by: Sodium Chloride (Sodium Chloride 0.9%) 250 mls @ 20 mls/hr IV .[id number] [facility] Last Admin: 06/24/21 07:43 Dose: Not Given Documented by: Latanoprost (Latanoprost Ophth Drops 2.5ml Bottle) 1 gtt OU [facility] Liothyronine Sodium (Liothyronine 5 Mcg Tablet) 5 mcg PO [facility] Last Admin: 06/23/21 22:37 Dose: 5 mcg Documented by: Lorazepam (Lorazepam 2 Mg/Ml Vial) 0.5 mg IV Q2-4HP PRN PRN Reason: ANXIETY/SEDATION Last Admin: 06/23/21 20:35 Dose: 0.5 mg Documented by: Nitroglycerin (Nitroglycerin 0.4 Mg Tab.Subl) 0.4 mg SL Q5M PRN PRN Reason: Chest Pain Nitroglycerin (Nitroglycerin 0.4 Mg Tab.Subl) 0.4 mg SL Q5M PRN PRN Reason: Chest Pain Pantoprazole Sodium (Pantoprazole 40 Mg Tablet) 40 mg PO QAMAC [facility] Last Admin: 06/24/21 07:47 Dose: 40 mg Documented by: Senna (Sennosides 1 Tablet) 1 tab PO DAILY [facility] Last Admin: 06/24/21 11:34 Dose: Not Given Documented by: Sodium Chloride (0.9 % Sodium Chloride 10 Ml Syringe) 10 ml IV Q8 [facility] Last Admin: 06/24/21 14:38 Dose: 10 ml Documented by: Spironolactone (Spironolactone 25 Mg Tablet) 25 mg PO QDAY [facility] Last Admin: 06/24/21 09:45 Dose: 25 mg Documented by: Sucralfate (Sucralfate 1 Gm Tablet) 1 gm PO ACHS [facility] Last Admin: 06/24/21 11:36 Dose: 1 gm Documented by: A/P Narrative A/P Narrative: Assessment and Plans: 1. Acute respiratory failure with respiratory alkalosis: RESOLVED DDx: panic attack, depression with anxiety with anxiety induced tachypnea CT angiogram chest performed and pulmonary embolism ruled out 2D echocardiogram prelim results showing good LVEF of 55% Observation ICU telemetry Continue Busprione and Citalopram Ativan 0.25mg IV 2-4hr PRN anxiety Continuous pulse oximetry Supplemental oxygen therapy as needed titrate to achieve spo2>=92%, currently on room air PT: rehab/SNF placement 2. Hypotensives: RESOLVED Did not require any pressors TSH 5.84 Cortisol (random and AM) within normal limits 3. history of systolic CHF: Hold beta shelia from home regimen Aldactone 4. hypothyroidism: TSH 5.84 Continue oral thyroid replacement therapy for now 5. h/o GERD: Continue oral PPI and sucralfate from home regimen 6. Major depression: Continue Citalopram from home regimen Continue Wellbutrin from home regimen 7. h/o CAD: Continue Aspirin and Plavix and statin Hold beta shelia given soft blood pressure 8. Atrial fibrillation: Hold beta shelia given soft blood pressure Continue Eliquis GI ppx: Continue oral PPI and sucralfate from home regimen DVT ppx: Eliquis Code status: Full Prognosis: stable Disposition: observation med surg; pending SNF rehab placement Time Spent With Patient Time: Total time spent is greater than 50% in coordination of care (as documented) at patient's floor/unit and/or counseling patient: Total time spent with greater than 50% in coordination of care (as documented) at patient's floor/unit and/or counseling patient:: 25 - 35 minutes QUALITY VTE Deep Vein Thrombosis/Pulmonary Embolism Present on Admission: No
[2021-06-24] MEDS ORDERED: LORazepam 2 MG/ML VIAL IV PRN (16:41)
[2021-06-24] MEDS: LIOTHYRONINE 5 MCG TABLET PO SCH (20:53)
[2021-06-24] MEDS: ATORVASTATIN 40 MG TABLET PO SCH (20:54)
[2021-06-24] MEDS ORDERED: LATANOPROST OPHTH DROPS 2.5ML BOTTLE OU SCH (21:00)
[2021-06-25 03:47] LABS: Basophils # (Auto) 0.02 K/mcL (0.00-0.30); Basophils % (Auto) 0.4 % (0.0-2.0); Eosinophils # (Auto) 0.13 K/mcL (0.00-0.70); Eosinophils % (Auto) 2.4 % (0.0-7.0); Hematocrit 37.8 % (34.1-44.9); Lymphocytes # (Auto) 1.74 K/mcL (1.50-4.80); Lymphocytes % (Auto) 32.6 % (15.5-49.0); Mean Cell Volume 94.5 fL (80.0-100.0); Mean Corpuscular HGB Conc 31.7 g/dL (31.0-36.0); Mean Platelet Volume 11.3 fL (7.4-10.4); Monocytes # (Auto) 0.56 K/mcL (0.10-0.90); Monocytes % (Auto) 10.5 % (1.0-12.0); Neutrophils % (Auto) 54.1 % (38.0-78.0); Platelet Count 189 K/mcL (140-440); Red Cell Distribution Width 13.1 % (11.5-14.5); WBC 5.3 K/mcL (4.5-11.0)
[2021-06-25 04:06] LABS: Phosphorous 3.8 mg/dL (2.5-4.5)
[2021-06-25 04:07] LABS: ALT/SGPT 13 U/L (<40); AST/SGOT 17 U/L (<32); Albumin 3.3 gm/dL (3.2-5.2); Albumin/Globulin Ratio 1.3 (1.0-2.3); Alkaline Phosphatase 75 U/L (39-117); Bilirubin,Total 0.2 mg/dL (0.1-1.0); Blood Urea Nitrogen 16 mg/dL (8-23); Calcium 8.8 mg/dL (8.6-10.4); Carbon Dioxide 21 mmol/L (22-30); Chloride 106 mmol/L (96-108); Globulin 2.5 gm/dL (2.2-3.7); Glomerular Filtration Rate 55; Glucose 92 mg/dL (70-105)
[2021-06-25] MEDS: 0.9 % SODIUM CHLORIDE 10 ML SYRINGE IV SCH (05:14)
[2021-06-25] MEDS: APIXABAN 5 MG TABLET PO SCH (08:06)
[2021-06-25] MEDS: PANTOPRAZOLE 40 MG TABLET PO SCH (08:06)
[2021-06-25] MEDS: SUCRALFATE 1 GM TABLET PO SCH (08:06)
[2021-06-25] MEDS: CLOPIDOGREL 75 MG TABLET PO SCH (08:07)
[2021-06-25] MEDS: SPIRONOLACTONE 25 MG TABLET PO SCH (08:07)
[2021-06-25] MEDS: buPROPion 150 MG TAB.XL.24H PO SCH (08:07)
[2021-06-25] MEDS: CITALOPRAM 20 MG TABLET PO SCH (08:07)
[2021-06-25] MEDS: SENNOSIDES 1 TABLET PO SCH (08:10)
[2021-06-25] MEDS: DOCUSATE SODIUM 100 MG CAPSULE PO SCH (08:10)
--- NOTE | 2021-06-25 09:17 | Discharge Summary ---
Discharge Provider Provider Patient information: Note initiated : 06/25/21 at 9:15 am Service Date, if different from initiated Date: [] Patient: Marilyn Dunbar 76 y/o F admitted on 06/23/21 for SOB, weakness. Chief Complaint: [] Date of admission: 06/23/21 18:57 Discharge date: 06/25/21 Primary care physician: Arabella Diaz Attending physician on admission: Erik Joiner Consults: 06/23/21 Consult to Physician [CONS] Stat Comment: Consulting Provider: Erik Joiner Reason For Exam: Physician to Consult Attending physician on discharge: Erik Estevez Pui Discharge Meds Discharge Medications Home Medications acetaminophen 500 mg capsule 500 mg PO QID PRN cap 03/17/19 [History Confirmed 06/23/21 Last Taken 06/23/21 14:08] liothyronine 5 mcg tablet See Rx Instructions .ROUTE .COMPLEX #90 tab 01/10/21 [Rx Confirmed 06/23/21 Last Taken 06/22/21 21:00] albuterol sulfate 90 mcg/actuation aerosol inhaler (Proventil HFA) 2 inh INHALATION Q6H PRN #6.7 g 03/04/21 [Rx Confirmed 06/23/21 Last Taken 06/04/21 12:00] clopidogrel 75 mg tablet (Plavix) 75 mg PO QDAY #90 tab 03/05/21 [Rx Confirmed 06/23/21 Last Taken 06/23/21 06:00] metoprolol succinate 25 mg tablet,extended release 24 hr 25 mg PO TID #270 tab 03/05/21 [Rx Confirmed 06/23/21 Last Taken Unknown] ondansetron 4 mg disintegrating tablet 4 mg PO Q6-8H PRN #30 tab 03/05/21 [Rx Confirmed 06/23/21 Last Taken Unknown] pantoprazole 40 mg tablet,delayed release 40 mg PO QDAY #90 tab 03/05/21 [Rx Confirmed 06/23/21 Last Taken Unknown] travoprost 0.004 % eye drops (Travatan Z) 1 drp OPHTHALMIC QHS #5 ml 03/05/21 [Rx Confirmed 06/23/21 Last Taken Unknown] nitroglycerin 0.4 mg sublingual tablet 0.4 mg SUBLINGUAL Q5-15M PRN #30 tab 03/28/21 [Rx Confirmed 06/23/21 Last Taken Unknown] sucralfate 1 gram tablet (Carafate) 1 g PO QACHS #30 tab 04/07/21 [Rx Confirmed 06/23/21 Last Taken Unknown] citalopram 40 mg tablet 40 mg PO QDAY tab 04/30/21 [History Confirmed 06/23/21 Last Taken 06/23/21 06:00] spironolactone 25 mg tablet 25 mg PO QDAY #30 tab 05/23/21 [Rx Confirmed 06/23/21 Last Taken Unknown] apixaban 5 mg tablet (Eliquis) 5 mg PO BID #180 tab 05/29/21 [Rx Confirmed 06/23/21 Last Taken 06/23/21 06:00] atorvastatin 80 mg tablet 80 mg PO QHS #90 tab 05/29/21 [Rx Confirmed 06/23/21 Last Taken 06/23/21 06:00] bupropion HCl 150 mg 24 hr tablet, extended release 150 mg PO DAILY 06/19/21 [History Confirmed 06/23/21 Last Taken 06/23/21 06:00] COURSE Hospital Course Hospital course: Ms. Dunbar is a 76 year old F woman h/o CHF, atrial fibrillation, hypothyroidism, depression, p/w recurrent shortness of breath. She presented to our ED on 06/20 for the same CC. Extensive workup was performed including CT an giogram chest to rule out pulmonary embolism. She also developed hypotension, and she was being kept in the ED for transient Levophed drip. She returned back to her baseline and was being discharged home with PCP follow up made for her this morning. While in the PCP office earlier today, she developed another episode of shortness of breath. She denies any anxiety or panic. She denied any chest pain, cough, sputum production, wheezing, fever, chills, or sweating. She was being sent back to our ED for re-evaluation. Vital signs significant for soft blood pressure with blood pressure as low as 80s/40s mmHg. Labs significant for lack of leukocytosis with WBC 6.3. ABG showing pH 7.69 with pCO2<20, indicative of respiratory alkalosis. CXR no acute intrathoracic pathologies. 2D echocardiogram was performed and prelim results are within normal limits with LVEF estimated to be 55% with normal diastolic functions. Ativan 0.5mg IV once were given in the ED, and her symptoms of shortness of breath was resolved. However, her blood pressure is now long again at 80s/60s mmHg with MAP of 70s mmHg. 06/24: Been on room air since overnight. Did not require Levophed drip. Currently has mild SOB. Had substernal sharp chest pain earlier this afternoon, spontaneous resolved after 5min. Denies anxiety. CoVID panther negative. Physical therapy evaluated patient and recommended SNF placement. 06/25: All symptoms resolved. Reached clinical stability. Accepted by and being discharged to SNF [facility]. Discharge diagnosis: Hyperventilation Time Spent with Patient Time attestation: Total time spent providing and/or coordinating discharge services: Time spent: Less than 30 minutes EXAM Constitutional Vitals: Temp Pulse Resp BP Pulse Ox 36.6 C 69 13 101/66 96 06/25/21 04:01 06/25/21 04:29 06/25/21 04:29 06/25/21 04:01 06/25/21 04:29 General appearance: cooperative and no acute distress Head Head exam: Present atraumatic and normocephalic Eye Eye exam: Present EOMI and PERRL ENT ENT exam: Present mucous membranes moist, normal exam and normal external ear exam Neck Neck exam: Present normal inspection; Absent lymphadenopathy, tenderness or thyromegaly Respiratory Respiratory exam: Absent accessory muscle use, respiratory distress or wheezes Cardiovascular Cardiovascular exam: Present irregular rhythm; Absent JVD GI/Abdominal GI/Abdominal exam: Present normal bowel sounds and soft; Absent organomegaly or tenderness Extremities Exam Extremities exam: Present full ROM, normal capillary refill and normal inspection; Absent tenderness Neurological Exam Neurological exam: Present alert, CN II-XII intact and oriented X3; Absent motor sensory deficit Psychiatric Psychiatric exam: Present normal affect and normal mood; Absent anxious or depressed Skin Skin exam: Present dry and intact Discharge Data Data Completed and Pending Labs on day of discharge: Labs from last 24 hours 06/25/21 06/25/21 06/25/21 02:51 02:51 02:51 WBC 5.3 RBC 4.00 Hgb 12.0 Hct 37.8 MCV 94.5 MCH 30.0 MCHC 31.7 RDW 13.1 Plt Count 189 MPV 11.3 H Neut % (Auto) 54.1 Lymph % (Auto) 32.6 Wise % (Auto) 10.5 Eos % (Auto) 2.4 Baso % (Auto) 0.4 Lymph # (Auto) 1.74 Wise # (Auto) 0.56 Eos # (Auto) 0.13 Baso # (Auto) 0.02 Absolute Neutrophils 2.89 Sodium 137 Potassium 3.6 Chloride 106 Carbon Dioxide 21 L Anion Gap 10.0 BUN 16 Creatinine 1.0 GFR Calculation 55 Glucose 92 Calcium 8.8 Phosphorus Magnesium Total Bilirubin 0.2 AST 17 ALT 13 Alkaline Phosphatase 75 Troponin T < 0.01 Total Protein 5.8 L Albumin 3.3 Globulin 2.5 Albumin/Globulin Ratio 1.3 Cortisol AM Sample 06/25/21 06/24/21 06/24/21 02:50 20:35 14:59 WBC RBC Hgb Hct MCV MCH MCHC RDW Plt Count MPV Neut % (Auto) Lymph % (Auto) Wise % (Auto) Eos % (Auto) Baso % (Auto) Lymph # (Auto) Wise # (Auto) Eos # (Auto) Baso # (Auto) Absolute Neutrophils Sodium Potassium Chloride Carbon Dioxide Anion Gap BUN Creatinine GFR Calculation Glucose Calcium Phosphorus 3.8 Magnesium 1.8 Total Bilirubin AST ALT Alkaline Phosphatase Troponin T < 0.01 < 0.01 Total Protein Albumin Globulin Albumin/Globulin Ratio Cortisol AM Sample 06/24/21 06/24/21 06/24/21 05:13 05:13 05:12 WBC RBC Hgb Hct MCV MCH MCHC RDW Plt Count MPV Neut % (Auto) Lymph % (Auto) Wise % (Auto) Eos % (Auto) Baso % (Auto) Lymph # (Auto) Wise # (Auto) Eos # (Auto) Baso # (Auto) Absolute Neutrophils Sodium 135 Potassium 4.1 Chloride 107 Carbon Dioxide 18 L Anion Gap 10.0 BUN 12 Creatinine 0.9 GFR Calculation 62 Glucose 59 L Calcium 8.6 Phosphorus 4.4 Magnesium 2.0 Total Bilirubin 0.5 AST 19 ALT 11 Alkaline Phosphatase 71 Troponin T Total Protein 5.8 L Albumin 3.2 Globulin 2.6 Albumin/Globulin Ratio 1.2 Cortisol AM Sample 12.8 Preliminary micro results at discharge 06/23/21 21:36 Blood Culture - Preliminary Blood 06/23/21 14:36 Blood Culture - Preliminary Blood Discharge Plan Patient/Caregiver Discharge Instructions Activity: increase activity as tolerated Diet: Regular Diet Instructions: Hyperventilation (GEN), Shortness of Breath (GEN) Prescriptions: Continued liothyronine 5 mcg tablet See Rx Instructions .ROUTE .COMPLEX Qty: 90 2RF Dose Instruction: TAKE ONE TABLET BY MOUTH AT BEDTIME DAILY Rx Instructions: TAKE ONE TABLET BY MOUTH AT BEDTIME DAILY albuterol sulfate [Proventil HFA] 90 mcg/actuation HFA aerosol inhaler 2 inh inhalation Q6H PRN (Reason: shortness of breath or wheezing) Qty: 6.7 6RF clopidogrel [Plavix] 75 mg tablet 75 mg PO QDAY Qty: 90 3RF metoprolol succinate 25 mg tablet extended release 24 hr 25 mg PO TID Qty: 270 1RF Rx Instructions: Take 2 tabs in am and 1 tab in evening ondansetron 4 mg tablet,disintegrating 4 mg PO Q6-8H PRN (Reason: nausea and vomiting) Qty: 30 3RF pantoprazole 40 mg tablet,delayed release (DR/EC) 40 mg PO QDAY Qty: 90 3RF Travatan Z 0.004 % drops 1 drp OPHTHALMIC QHS Qty: 5 0RF sucralfate [Carafate] 1 gram tablet 1 g PO QACHS Qty: 30 0RF Rx Instructions: put in 5cc of water to dissolve, avoid around other meds. Eliquis 5 mg tablet 5 mg PO BID Qty: 180 0RF atorvastatin 80 mg tablet 80 mg PO QHS Qty: 90 1RF acetaminophen 500 mg capsule 500 mg PO QID PRN (Reason: generalized pain) 0RF spironolactone 25 mg tablet 25 mg PO QDAY Qty: 30 3RF nitroglycerin 0.4 mg tablet, sublingual 0.4 mg sublingual Q5-15M PRN (Reason: chest pain) Qty: 30 2RF Rx Instructions: do not exceed 3 doses per episode citalopram 40 mg tablet 40 mg PO QDAY 0RF bupropion HCl 150 mg tablet extended release 24 hr 150 mg PO DAILY 0RF Follow Up Plan Follow up with: Arabella Diaz ARNP [Primary Care Provider] - 06/27/21 7:45 am (Continue with your previously scheduled appointment) Patient Disposition: Xfer SNF Prognosis: Fair Rehab Potential: Good I certify that the patient requires SNF services: Yes Overall status at discharge: patient is back to baseline Discharge Orders: Discharge Order (Routine); Ordered 06/25/21 Ordered By: Erik ROLAND VTE Deep Vein Thrombosis/Pulmonary Embolism Present on Admission: No
--- NOTE | 2021-06-27 09:01 | EKG ---
[facility] Test Date: 2021-06-24 Pat Name: Marilyn Dunbar Department: ICU Room: 120A Gender: Female Greens Keeper: : 1945 Requested By: Erik Joiner Order Number: [id number] Reading MD: Johann Oliveros Measurements Intervals [place] Rate: 85 P: 44 SC: 173 QRS: 14 QRSD: 80 T: 48 QT: 503 QTc: 599 Interpretive Statements Sinus rhythm Atrial premature complex Nonspecific lateral ST changes Electronically Signed On 06-27-2021 8:59:51 PST by Johann Oliveros /[id number]
== END 2021-06-25 11:09 ==
LOC: ED 12:56 → INTOOBSV 18:57 → ICU 18:57
PROVIDERS: ADMIT Internal Medicine; ATTEND Internal Medicine

== ENCOUNTER 2022-01-09 13:56 | Observation (INO) ==
[2022-01-09 14:15] LABS: POC INR 1.3 (0.8-1.2); POC Pro Time 15.3 (11.9-14.5)
[2022-01-09] MEDS ORDERED: HYDROcodone/APAP 5/325MG TABLET PO ONE (14:28)
--- NOTE | 2022-01-09 14:28 | Emergency Department Note ---
Trauma HPI General Chief Complaint: Trauma Stated Complaint: fall Time Seen by Provider: 01/09/22 14:00 Source: patient Mode of arrival: ambulatory History of Present Illness HPI Narrative: Narrative: 76-year-old female with a history of previous stroke with chronic left-sided deficits, anticoagulation with Eliquis and Plavix, CKD, hypertension, diverticulitis, adenocarcinoma the colon, GERD, CAD presents the ER to be evaluated for head injury. She fell this morning and impacted her face. She states she lost her balance and fell forward. She also had another fall a couple days ago and landed on her buttocks. She states EMS helped her up but she felt okay and did not feel like she needed to be evaluated in the emergency room. She states her fall this morning when she impacted her face happened at approximately 530 to 6 in the morning. She had an home health that helped her to her feet. She is planning on traveling to [place] today and states she is having significant back pain and will need pain medication in order to travel. She states she had trace incontinence of fecal material when this happened but she did not lose her whole bowel. She was assisted to her feet and had a normal bowel movement after. She has not had bladder incontinence or saddle anesthesia. She denies confusion, loss of consciousness, chest pain, chest pressure, fever, chills, body aches, nausea or vomiting. Related Data Home Medications Medication Instructions Recorded Confirmed acetaminophen 500 mg capsule 500 mg PO QID PRN cap 03/17/19 01/09/22 sacubitril 24 mg-valsartan 26 mg 1 tab PO BID 08/06/21 01/09/22 tablet Dopa Mucuna Standardized Mucuna PO 08/14/21 01/09/22 Extract, 15% L-D Previous Rx's Medication Instructions Recorded liothyronine 5 mcg tablet See Rx Instructions .ROUTE 01/10/21 .COMPLEX #90 tab albuterol sulfate 90 mcg/actuation 2 inh INHALATION Q6H PRN #6.7 g 03/04/21 aerosol inhaler (Proventil HFA) clopidogrel 75 mg tablet (Plavix) 75 mg PO QDAY #90 tab 03/05/21 ondansetron 4 mg disintegrating 4 mg PO Q6-8H PRN #30 tab 03/05/21 tablet nitroglycerin 0.4 mg sublingual 0.4 mg SUBLINGUAL Q5-15M PRN #30 03/28/21 tablet tab sucralfate 1 gram tablet (Carafate) 1 g PO QACHS #30 tab 04/07/21 spironolactone 25 mg tablet 25 mg PO QDAY #30 tab 05/23/21 apixaban 5 mg tablet (Eliquis) 5 mg PO BID #180 tab 05/29/21 bupropion HCl 150 mg 24 hr tablet, 150 mg PO DAILY #30 tab 09/17/21 extended release travoprost 0.004 % eye drops 1 drp OPHTHALMIC QHS #5 ml 11/04/21 (Travatan Z) citalopram 40 mg tablet 40 mg PO QDAY #90 tab 11/13/21 metoprolol succinate 25 mg 25 mg PO BID #180 tab 11/24/21 tablet,extended release 24 hr atorvastatin 80 mg tablet 80 mg PO QHS #90 tab 12/30/21 pantoprazole 40 mg tablet,delayed 40 mg PO QDAY #90 tab 01/09/22 release Allergies Allergy/AdvReac Type Severity Reaction Status Date / Time No Known Drug Allergies Allergy Verified 01/09/22 13:07 Review of Systems ROS ROS Narrative: Narrative: All systems ED: reviewed and negative except as stated. PFSH Narrative Patient History Narrative: Narrative: Medical/Surgical/Family History All Active Problems (Updated 01/09/22 @ 16:10 by Michael Roa PA-C) Dehydration (Acute) Fall (Acute) Head injury (Acute) Constipation (Acute) Hemorrhoids (Acute) Hypotension (Acute) Acute dyspnea (Acute) Acute hypotension (Acute) Acute respiratory alkalosis (Acute) Respiratory alkalosis (Acute) Acute respiratory failure (Acute) Dizziness (Acute) Acute dyspnea (Acute) CHF (congestive heart failure) (Acute) Acute hypotension (Acute) Acute dehydration (Acute) CAD (coronary artery disease) (Acute) Systolic heart failure secondary to coronary artery disease (Acute) Moderate major depression (Acute) Throat irritation (Acute) History of ST elevation myocardial infarction (STEMI) (Acute) Aspiration pneumonia (Acute) Atrial fibrillation with RVR (Acute) Unstable angina (Acute) Left wrist pain (Acute) Left shoulder pain (Acute) Muscle spasm (Acute) Rib pain on right side (Acute) Anxiety and depression (Acute) 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 (Acute) Muscle weakness of left upper extremity (Chronic) Fatigue (Chronic) Arthralgia (Chronic) Hyperlipidemia (Chronic) Vitamin D deficiency (Chronic) Bradycardia (Chronic) Arrhythmia (Chronic) Encounter for long-term (current) use of other medications (Chronic) GERD (gastroesophageal reflux disease) (Chronic) Varicose veins of other specified sites (Chronic) Hypothyroidism (Chronic) Cyst of left breast (Chronic) Cervical strain (Chronic) Smoker (Chronic) Diverticulitis (Chronic) Adenocarcinoma, colon (Chronic) Insomnia (Chronic) Carcinoma of colon (Chronic) Encounter for long-term (current) use of medications (Chronic) Cerebral infarction due to unspecified occlusion or stenosis of right middle cerebral artery (Chronic) HTN (hypertension) (Chronic) Chronic kidney disease (CKD), stage II (mild) (Chronic) Allergic rhinitis (Chronic) Numbness and tingling sensation of skin (Chronic) Depression (Chronic) Stress (Chronic) Benign neoplasm of transverse colon (Chronic) Ankle pain, left (Chronic) Weakness of left side of body (Chronic) Cataract, secondary obscuring vision (Chronic) Primary open-angle glaucoma, bilateral, mild stage (Chronic) Other localized visual field defect, bilateral (Chronic) Neuropathy (Chronic) Pseudophakia (Chronic) Spasticity (Chronic) Medical History Adenocarcinoma, colon Allergic rhinitis Ankle pain, left Arrhythmia Arthralgia Benign neoplasm of transverse colon Bradycardia Carcinoma of colon Cataract, secondary obscuring vision bilateral Cerebral infarction due to unspecified occlusion or stenosis of right middle cerebral artery Cervical strain with radiculopathy Chronic kidney disease (CKD), stage II (mild) Cyst of left breast Depression Diverticulitis Encounter for long-term (current) use of medications Encounter for long-term (current) use of other medications Fatigue GERD (gastroesophageal reflux disease) History of stroke (~10/2016) Right side stroke with left sided weakness in arm and leg HTN (hypertension) Hyperlipidemia Hypothyroidism Insomnia Neuropathy Numbness and tingling sensation of skin Other localized visual field defect, bilateral Primary open-angle glaucoma, bilateral, mild stage Pseudophakia Rectal bleed Smoker Spasticity Stress Varicose veins of other specified sites Vitamin D deficiency Weakness of left side of body Surgical History History of bunionectomy of left great toe (~03/2011) Hx of section Hx of colonoscopy 01/10/2013 - lesions of colon, CT scan at [facility] 02/16/2018 - Adenomatous transverse colon polyp, repeat 3 yrs Hx of foot surgery (~11/2010) Left foot surgery, left sciatic pain radiates to left leg, after surgery 11/19 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 Family History Sister Cancer Mother Dementia Heart failure Social History Smoking Status: Former smoker Exam Narrative Narrative: Narrative: Gen: No acute distress, c-collar in place Eyes: PERRL, no conjunctival injection , and symmetrical lids. Sclerae non icteric HENMT: Normocephalic Atraumatic head, external nose and ears. Moist MM. No evidence of mariee signs, raccoon eyes, rhinorrhea, otorrhea or hemotympanum. No malocclusion. Neck: Symmetric, trachea midline, c-collar in place, with midline cervical tenderness CVS: +S1/S2, No murmurs or gallops. Radial pulses 2+ and equal bilat. No swelling RESP: Unlabored respiratory effort . Clear to auscultation bilaterally (CTAB). No noted wheezes rales or ronchi. Chest: Right-sided chest wall tenderness at the anterior axillary line no crepitus, bruising or subcutaneous emphysema Back: Patient has midline back tenderness down the thoracic and lumbar spine. GI: Nontender/Nondistended (NTND), No focal tenderness MSK: Extremities w/o deformity or ttp. No cyanosis or clubbing. Patient can plantarflex and dorsiflex and raise both legs against gravity. She ambulated into the ER under her own power without difficulty. Skin: Warm, Dry . No rashes or lesions . Cap refill less than 2. Neuro: Patient has chronic left-sided deficits, she denies new focal deficits. She ambulated into the ER under her own power and can lift both legs against gravity, she has normal media monitor strength bilaterally. Cranial nerves III through XII are intact. Extraocular movements are intact without any deficit. Pupils equal round reactive to light. Psych: Awake, Alert, & Oriented (AAO) x3. Appropriate mood and affect . Course Vital Signs Vital signs: Vital Signs Temperature 97.8 F 01/09/22 13:57 Pulse Rate 72 01/09/22 13:57 Respiratory Rate 16 07/01/22 13:57 Blood Pressure 103/71 01/09/22 13:57 Pulse Oximetry (%) 99 01/09/22 13:57 Temperature 97.8 F 01/09/22 13:57 Pulse Rate 85 01/09/22 14:31 Respiratory Rate 16 01/09/22 13:57 Blood Pressure 125/86 01/09/22 15:32 Pulse Oximetry (%) 94 01/09/22 14:31 MDM MDM Narrative Medical decision making narrative: Narrative: Patient fell and impacted her head while anticoagulated on Eliquis and Plavix. She has midline cervical, thoracic and lumbar spine tenderness. She has chest wall tenderness. She will be evaluated the CT scan of the head, cervical spine, chest and lumbar spine. She is afebrile with normal vital signs. She appears nontoxic at this time. She is just describing midline back pain and she was placed in a c-collar in triage. She will be reevaluated after imaging. CBC, CMP and coags were obtained. CBC: Unremarkable CMP: Unremarkable PT/INR: Slightly elevated aPTT: Normal CT brain: Old infarct, no acute fx or process CT cervical spine: Degenerative discs No acute fx CT chest abd pelvis: Old compression fracture of thoracic spine, no acute fx, Patient has no acute findings on imaging., No brain bleeding. Her lab work is overall unremarkable. [place] did help control her pain. I had a discussion with the patient regarding inpatient admission for observation given that she had head trauma while on Eliquis and Plavix. She states she did not wish to be admitted at this time and she lives close to the hospital would return if there is any abnormalities or things that she was concerned about. We talked about the risks and benefits and she still wishes to go home at this time. She will follow-up with her primary. If she has any worsening signs or symptoms she will return to the ER for reevaluation. Upon third further consideration the patient states she wished to be admitted for observation, hospitalist will be consulted to discuss admission. Dr Joiner: He will be down to evaluate the patient himself. Lab Data Result diagrams: 01/09/22 14:13 01/09/22 14:12 Labs: Lab Results 01/09/22 01/09/22 01/09/22 Range/Units 14:12 14:12 14:13 WBC 6.3 (4.5-11.0) K/mcL RBC 4.42 (3.59-5.38) M/mcL Hgb 13.7 (11.2-15.7) g/dL Hct 42.2 (34.1-44.9) % MCV 95.5 (80.0-100.0) fL MCH 31.0 (26.0-34.0) pg MCHC 32.5 (31.0-36.0) g/dL RDW 12.5 (11.5-14.5) % Plt Count 225 (140-440) K/mcL MPV 11.1 H (7.4-10.4) fL Immature Gran % (Auto) 0.5 (0.0-0.5) % Neut % (Auto) 53.8 (38.0-78.0) % Lymph % (Auto) 33.7 (15.5-49.0) % Wells % (Auto) 8.2 (1.0-12.0) % Eos % (Auto) 3.5 (0.0-7.0) % Baso % (Auto) 0.3 (0.0-2.0) % Lymph # (Auto) 2.13 (1.50-4.80) K/mcL Wells # (Auto) 0.52 (0.10-0.90) K/mcL Eos # (Auto) 0.22 (0.00-0.70) K/mcL Baso # (Auto) 0.02 (0.00-0.30) K/mcL Immature Gran # 0.03 (0.00-0.05) K/mcl Absolute Neutrophils 3.43 (1.80-8.00) K/mcL POC PT 15.3 H (11.9-14.5) POC INR 1.3 H (0.8-1.2) APTT (20.0-37.0) sec Sodium 135 (133-145) mmol/L Potassium 3.6 (3.3-5.1) mmol/L Chloride 99 (96-108) mmol/L Carbon Dioxide 23 (22-30) mmol/L Anion Gap 13.0 (8.0-16.0) BUN 11 (8-23) mg/dL Creatinine 1.1 (0.6-1.1) mg/dL GFR Calculation 48 Glucose 75 (70-105) mg/dL Calcium 9.4 (8.6-10.4) mg/dL Total Bilirubin 0.6 (0.1-1.0) mg/dL AST 19 (<32) U/L ALT 11 (<40) U/L Alkaline Phosphatase 74 (39-117) U/L Total Protein 6.6 (5.9-8.4) gm/dL Albumin 4.0 (3.2-5.2) gm/dL Globulin 2.6 (2.2-3.7) gm/dL Albumin/Globulin Ratio 1.5 (1.0-2.3) 01/09/22 Range/Units 14:13 WBC (4.5-11.0) K/mcL RBC (3.59-5.38) M/mcL Hgb (11.2-15.7) g/dL Hct (34.1-44.9) % MCV (80.0-100.0) fL MCH (26.0-34.0) pg MCHC (31.0-36.0) g/dL RDW (11.5-14.5) % Plt Count (140-440) K/mcL MPV (7.4-10.4) fL Immature Gran % (Auto) (0.0-0.5) % Neut % (Auto) (38.0-78.0) % Lymph % (Auto) (15.5-49.0) % Wells % (Auto) (1.0-12.0) % Eos % (Auto) (0.0-7.0) % Baso % (Auto) (0.0-2.0) % Lymph # (Auto) (1.50-4.80) K/mcL Wells # (Auto) (0.10-0.90) K/mcL Eos # (Auto) (0.00-0.70) K/mcL Baso # (Auto) (0.00-0.30) K/mcL Immature Gran # (0.00-0.05) K/mcl Absolute Neutrophils (1.80-8.00) K/mcL POC PT (11.9-14.5) POC INR (0.8-1.2) APTT 30.7 (20.0-37.0) sec Sodium (133-145) mmol/L Potassium (3.3-5.1) mmol/L Chloride (96-108) mmol/L Carbon Dioxide (22-30) mmol/L Anion Gap (8.0-16.0) BUN (8-23) mg/dL Creatinine (0.6-1.1) mg/dL GFR Calculation Glucose (70-105) mg/dL Calcium (8.6-10.4) mg/dL Total Bilirubin (0.1-1.0) mg/dL AST (<32) U/L ALT (<40) U/L Alkaline Phosphatase (39-117) U/L Total Protein (5.9-8.4) gm/dL Albumin (3.2-5.2) gm/dL Globulin (2.2-3.7) gm/dL Albumin/Globulin Ratio (1.0-2.3) Discharge Plan Patient/Caregiver Discharge Instructions Pt seen by BELT BUILDER HELPER/PA only: Yes Clinical Impression: Fall, Head injury Instructions: Fall Prevention for Older Adults (ED), Head Injury (ED) Patient Disposition: Xfer As Outpt/Obs ([facility]) Follow up with: Arabella Diaz ARNP [Primary Care Provider] - Prescriptions: No Action liothyronine 5 mcg tablet See Rx Instructions .ROUTE .COMPLEX Qty: 90 2RF Dose Instruction: TAKE ONE TABLET BY MOUTH AT BEDTIME DAILY Rx Instructions: TAKE ONE TABLET BY MOUTH AT BEDTIME DAILY albuterol sulfate [Proventil HFA] 90 mcg/actuation HFA aerosol inhaler 2 inh inhalation Q6H PRN (Reason: shortness of breath or wheezing) Qty: 6.7 6RF clopidogrel [Plavix] 75 mg tablet 75 mg PO QDAY Qty: 90 3RF ondansetron 4 mg tablet,disintegrating 4 mg PO Q6-8H PRN (Reason: nausea and vomiting) Qty: 30 3RF sucralfate [Carafate] 1 gram tablet 1 g PO QACHS Qty: 30 0RF Rx Instructions: put in 5cc of water to dissolve, avoid around other meds. Eliquis 5 mg tablet 5 mg PO BID Qty: 180 0RF Dopa Mucuna Standardized Mucuna Extract, 15% L-D PO 0RF bupropion HCl 150 mg tablet extended release 24 hr 150 mg PO DAILY Qty: 30 3RF Travatan Z 0.004 % drops 1 drp OPHTHALMIC QHS Qty: 5 6RF citalopram 40 mg tablet 40 mg PO QDAY Qty: 90 3RF metoprolol succinate 25 mg tablet extended release 24 hr 25 mg PO BID Qty: 180 3RF atorvastatin 80 mg tablet 80 mg PO QHS Qty: 90 1RF pantoprazole 40 mg tablet,delayed release (DR/EC) 40 mg PO QDAY Qty: 90 0RF acetaminophen 500 mg capsule 500 mg PO QID PRN (Reason: generalized pain) 0RF spironolactone 25 mg tablet 25 mg PO QDAY Qty: 30 3RF sacubitril-valsartan 24-26 mg tablet 1 tab PO BID 0RF nitroglycerin 0.4 mg tablet, sublingual 0.4 mg sublingual Q5-15M PRN (Reason: chest pain) Qty: 30 2RF Rx Instructions: do not exceed 3 doses per episode
[2022-01-09 14:38] LABS: Basophils # (Auto) 0.02 K/mcL (0.00-0.30); Basophils % (Auto) 0.3 % (0.0-2.0); Eosinophils # (Auto) 0.22 K/mcL (0.00-0.70); Eosinophils % (Auto) 3.5 % (0.0-7.0); Hematocrit 42.2 % (34.1-44.9); Hemoglobin 13.7 g/dL (11.2-15.7); Lymphocytes # (Auto) 2.13 K/mcL (1.50-4.80); Lymphocytes % (Auto) 33.7 % (15.5-49.0); Mean Cell Volume 95.5 fL (80.0-100.0); Mean Corpuscular HGB Conc 32.5 g/dL (31.0-36.0); Mean Platelet Volume 11.1 fL (7.4-10.4); Monocytes # (Auto) 0.52 K/mcL (0.10-0.90); Monocytes % (Auto) 8.2 % (1.0-12.0); Neutrophils % (Auto) 53.8 % (38.0-78.0); Platelet Count 225 K/mcL (140-440); RBC 4.42 M/mcL (3.59-5.38); Red Cell Distribution Width 12.5 % (11.5-14.5); WBC 6.3 K/mcL (4.5-11.0)
--- NOTE | 2022-01-09 15:22 | Cat Scan Report ---
History: Fell, right-sided rib thoracic pain, anticoagulated TECHNIQUE: The patient was imaged without contrast scanning in axial plane from the thoracic inlet through the symphysis pubis. Sagittal coronal and axial MIPS images were created. The radiation exposure was limited using dose reduction technology. FINDINGS: Chest: The lungs are clear and there is no pulmonary contusion pneumothorax or pleural effusion. There are few small scattered granulomata in both lungs. Thin linear bands of scar tissue or present in both lung bases. The heart size is normal. Moderate amount calcified plaque is present in the coronary arteries. There is no adenopathy. Aorta is normal in caliber and there is no evidence of mediastinal hemorrhage. Bone windows show no mild anterior wedge compression fracture involving the T4 vertebra. The spine has a kyphotic curvature. No acute fracture is present in the spine ribs or shoulders. Abdomen and pelvis: Evaluation of abdominal organs without contrast is somewhat limited. The liver and spleen are normal in size and homogeneous. The gallbladder appears normal with no calcified stones in the bile ducts are nondilated. No abnormality is detected within the pancreas. There is no evidence of lacerated abdominal organ. There is a small lipid-containing nodule in the left adrenal. The right adrenal is normal. The kidneys are normal in size and contour. There is a row of anastomotic sutures around the bowel anterior to the right kidney. The patient may have had a prior partial right-sided colectomy performed. There are air-fluid levels in several loops of small intestine and the descending colon. No transition point is seen. No free intra-abdominal fluid or air are present. Urinary bladder is normal. There is a densely calcified exophytic fibroid the left side of the uterus. Neither ovary is clearly identified. Bone windows show no pelvic hip or spine fracture. There is chronic disc degeneration at L4-5 and L5-S1. Large amount calcified plaque is present in the aorta and iliac arteries. IMPRESSION: No evidence of acute injury within the chest abdomen or pelvis Ileus pattern in the mid and upper abdomen Michael Roa was called with the report Interpreted and Authenticated by: Carrington Reyes 01/09/22
--- NOTE | 2022-01-09 15:22 | Cat Scan Report ---
History: Fell, neck injury, anticoagulated TECHNIQUE: The neck was imaged without contrast in axial plane at 2.5 mm intervals from the skull base through the thoracic inlet. Sagittal and coronal reformats were created. The radiation exposure was limited using dose reduction technology. FINDINGS: The cervico-occipital junction is normal. There is mild arthritis at the articulation of the odontoid and anterior ring of C1. There is moderate disc space narrowing at C3-4, C4-5, C5-6 and C6-7. There are spurs forming around the margins of these disc. Is also mild spurring of the uncinate processes bilaterally at these levels causing mild stenosis of the foramina. Central canal appears normal in caliber. There is an old healed mild anterior wedge compression fracture involving the superior endplate of T4. The cervical vertebrae are normal in height with no cervical fracture or spondylolisthesis. There is no paraspinal hematoma or mass. Comparison with the prior chest CT on 06/19/21 shows the T4 fracture is old and stable. There is a large air-fluid level in the left maxillary sinus and a small amount of fluid in the right maxillary sinus. The visualized portions of the facial bones are normal without evidence of a fracture. IMPRESSION: No acute fracture in the neck Degenerative disc disease and arthritis at multiple levels Maxillary sinusitis Michael Roa was called with the report Interpreted and Authenticated by: Carrington Reyes 01/09/22
--- NOTE | 2022-01-09 15:22 | Cat Scan Report ---
History: Fell, anticoagulated, head injury TECHNIQUE: The brain was imaged without contrast in axial plane at 2.5 mm intervals. Sagittal and coronal reformats were created. The radiation exposure was limited using dose reduction technology. FINDINGS: There is a large old infarct with encephalomalacia in the distribution of the right middle cerebral artery. It Involves the right parietal lobe, posterior right frontal lobe, portions of the temporal and the anterior aspect of the right occipital lobes. This has not changed since a prior head CT done on 06/23/21. No acute infarct is detected. There is no intracranial hemorrhage or cerebral edema. Chronic white matter degeneration is seen in the centrum semiovale, most apparent in the left frontal lobe. There is mild atrophy. Ventricles are normal in size, allowing for age and the old right hemispheric infarct. There is no abnormal extra-axial fluid collection. Bone windows show no skull fracture. There is no scalp hematoma. There is moderate amount of fluid in the superior recess of the left maxillary sinus. IMPRESSION: No acute head injury Stable large old infarct in the distribution of the right middle cerebral artery Age-related degenerative changes Left maxillary sinusitis Michael Roa was called with report Interpreted and Authenticated by: Carrington Reyes 01/09/22
[2022-01-09 16:08] LABS: ALT/SGPT 11 U/L (<40); AST/SGOT 19 U/L (<32); Albumin/Globulin Ratio 1.5 (1.0-2.3); Alkaline Phosphatase 74 U/L (39-117); Bilirubin,Total 0.6 mg/dL (0.1-1.0); Blood Urea Nitrogen 11 mg/dL (8-23); Calcium 9.4 mg/dL (8.6-10.4); Carbon Dioxide 23 mmol/L (22-30); Chloride 99 mmol/L (96-108); Globulin 2.6 gm/dL (2.2-3.7); Glomerular Filtration Rate 48; Glucose 75 mg/dL (70-105)
--- NOTE | 2022-01-09 17:46 | Internal Med History&Physical ---
HPI History of Present Illness Patient information: Note initiated : 01/09/22 at 5:37 pm Service Date, if different from initiated Date: [] Patient: Marilyn Dunbar a 76 y/o F admitted on for fall. Chief Complaint: [fall] Chief complaint: fall History of present illness: Ms. Dunbar is a 76 year old F history of stroke with resultant left hemiparesis, CHF, CAD, atrial fibrillation's, colon cancer, stage II chronic kidney disease, hypertension, hypothyroidism, presenting with multiple falls. Patient had a history of ischemic stroke with resultant left hemiparesis in 2017. Patient also have a history of atrial fibrillation's. She is on Plavix and Eliquis. She fell at home and yesterday and then this morning. She did not pass out on both occasions she is claims that she lost her balance. She landed on her forehead this morning on her second fall. She was calling her PCP office for pain medication for headaches in preparations for her upcoming trip to [place] but she was instructed to come to our ED for further evaluations instead. Vital signs within normal limits. Labs also within normal limits. CT of the head did not show any acute intracranial pathologies. Whole-body imaging also did not show any other bone fractures or joint dislocations. Admission request was called for observation overnight. Constitutional Constitutional: Absent chills, excessive sweating, fatigue, fever(s) or weakness EENT Eyes: Absent blurry vision, change in vision, loss of vision or other visual disturbances Ears: Absent decreased hearing or tinnitus Nose, mouth and throat: Absent abnormal hearing, dry mouth, headache(s), nasal congestion or sore throat Cardiovascular Cardiovascular: Absent chest pain, chest pain at rest, edema, irregular heart rhythm or palpatations Respiratory Respiratory: Absent cough, dyspnea or wheezing Gastrointestinal Gastrointestinal: Absent abdominal pain, constipation, diarrhea, nausea or vomiting Musculoskeletal Musculoskeletal: Absent back pain, deformity, limited range of motion, muscle cramps, muscle weakness or numbness Integumentary Integumentary: Absent lesions, rash or wounds Neurological Neurological: Absent focal weakness, headache(s) or numbness Psychiatric Psychiatric: Absent anxiety, depression or hallucinations PFSH PFSH All Active Problems (Updated 01/09/22 @ 17:44 by Erik Joiner MD) Stroke (Acute) Dehydration (Acute) Fall (Acute) Head injury (Acute) Constipation (Acute) Hemorrhoids (Acute) Hypotension (Acute) Acute dyspnea (Acute) Acute hypotension (Acute) Acute respiratory alkalosis (Acute) Respiratory alkalosis (Acute) Acute respiratory failure (Acute) Dizziness (Acute) Acute dyspnea (Acute) CHF (congestive heart failure) (Acute) Acute hypotension (Acute) Acute dehydration (Acute) CAD (coronary artery disease) (Acute) Systolic heart failure secondary to coronary artery disease (Acute) Moderate major depression (Acute) Throat irritation (Acute) History of ST elevation myocardial infarction (STEMI) (Acute) Aspiration pneumonia (Acute) Atrial fibrillation with RVR (Acute) Unstable angina (Acute) Left wrist pain (Acute) Left shoulder pain (Acute) Muscle spasm (Acute) Rib pain on right side (Acute) Anxiety and depression (Acute) 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 (Acute) Muscle weakness of left upper extremity (Chronic) Fatigue (Chronic) Arthralgia (Chronic) Hyperlipidemia (Chronic) Vitamin D deficiency (Chronic) Bradycardia (Chronic) Arrhythmia (Chronic) Encounter for long-term (current) use of other medications (Chronic) GERD (gastroesophageal reflux disease) (Chronic) Varicose veins of other specified sites (Chronic) Hypothyroidism (Chronic) Cyst of left breast (Chronic) Cervical strain (Chronic) Smoker (Chronic) Diverticulitis (Chronic) Adenocarcinoma, colon (Chronic) Insomnia (Chronic) Carcinoma of colon (Chronic) Encounter for long-term (current) use of medications (Chronic) Cerebral infarction due to unspecified occlusion or stenosis of right middle cerebral artery (Chronic) HTN (hypertension) (Chronic) Chronic kidney disease (CKD), stage II (mild) (Chronic) Allergic rhinitis (Chronic) Numbness and tingling sensation of skin (Chronic) Depression (Chronic) Stress (Chronic) Benign neoplasm of transverse colon (Chronic) Ankle pain, left (Chronic) Weakness of left side of body (Chronic) Cataract, secondary obscuring vision (Chronic) Primary open-angle glaucoma, bilateral, mild stage (Chronic) Other localized visual field defect, bilateral (Chronic) Neuropathy (Chronic) Pseudophakia (Chronic) Spasticity (Chronic) Medical History Adenocarcinoma, colon Allergic rhinitis Ankle pain, left Arrhythmia Arthralgia Benign neoplasm of transverse colon Bradycardia Carcinoma of colon Cataract, secondary obscuring vision bilateral Cerebral infarction due to unspecified occlusion or stenosis of right middle cerebral artery Cervical strain with radiculopathy Chronic kidney disease (CKD), stage II (mild) Cyst of left breast Depression Diverticulitis Encounter for long-term (current) use of medications Encounter for long-term (current) use of other medications Fatigue GERD (gastroesophageal reflux disease) History of stroke (~10/2016) Right side stroke with left sided weakness in arm and leg HTN (hypertension) Hyperlipidemia Hypothyroidism Insomnia Neuropathy Numbness and tingling sensation of skin Other localized visual field defect, bilateral Primary open-angle glaucoma, bilateral, mild stage Pseudophakia Rectal bleed Smoker Spasticity Stress Varicose veins of other specified sites Vitamin D deficiency Weakness of left side of body Surgical History History of bunionectomy of left great toe (~03/2011) Hx of section Hx of colonoscopy 01/10/2013 - lesions of colon, CT scan at [facility] 02/16/2018 - Adenomatous transverse colon polyp, repeat 3 yrs Hx of foot surgery (~11/2010) Left foot surgery, left sciatic pain radiates to left leg, after surgery 11/19 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 Family History Sister Cancer Mother Dementia Heart failure Social History marital status: MEDS/ALLERGIES Home Medications and Allergies Home Medications Medication Instructions Recorded Confirmed Type acetaminophen 500 mg capsule 500 mg PO QID PRN cap 03/17/19 01/09/22 History liothyronine 5 mcg tablet See Rx Instructions .ROUTE 01/10/21 01/09/22 Rx .COMPLEX #90 tab albuterol sulfate 90 mcg/actuation 2 inh INHALATION Q6H PRN #6.7 g 03/04/21 01/09/22 Rx aerosol inhaler (Proventil HFA) clopidogrel 75 mg tablet (Plavix) 75 mg PO QDAY #90 tab 03/05/21 01/09/22 Rx ondansetron 4 mg disintegrating 4 mg PO Q6-8H PRN #30 tab 03/05/21 01/09/22 Rx tablet nitroglycerin 0.4 mg sublingual 0.4 mg SUBLINGUAL Q5-15M PRN #30 03/28/21 01/09/22 Rx tablet tab sucralfate 1 gram tablet (Carafate) 1 g PO QACHS #30 tab 04/07/21 01/09/22 Rx spironolactone 25 mg tablet 25 mg PO QDAY #30 tab 05/23/21 01/09/22 Rx apixaban 5 mg tablet (Eliquis) 5 mg PO BID #180 tab 05/29/21 01/09/22 Rx sacubitril 24 mg-valsartan 26 mg 1 tab PO BID 08/06/21 01/09/22 History tablet Dopa Mucuna Standardized Mucuna PO 08/14/21 01/09/22 History Extract, 15% L-D bupropion HCl 150 mg 24 hr tablet, 150 mg PO DAILY #30 tab 09/17/21 01/09/22 Rx extended release travoprost 0.004 % eye drops 1 drp OPHTHALMIC QHS #5 ml 11/04/21 01/09/22 Rx (Travatan Z) citalopram 40 mg tablet 40 mg PO QDAY #90 tab 11/13/21 01/09/22 Rx metoprolol succinate 25 mg 25 mg PO BID #180 tab 11/24/21 01/09/22 Rx tablet,extended release 24 hr atorvastatin 80 mg tablet 80 mg PO QHS #90 tab 12/30/21 01/09/22 Rx pantoprazole 40 mg tablet,delayed 40 mg PO QDAY #90 tab 01/09/22 01/09/22 Rx release Allergies Allergy/AdvReac Type Severity Reaction Status Date / Time No Known Drug Allergies Allergy Verified 01/09/22 13:07 EXAM Constitutional Vitals: Temp Pulse Resp BP Pulse Ox 36.6 C 85 16 125/86 94 01/09/22 13:57 01/09/22 14:31 01/09/22 13:57 01/09/22 15:32 01/09/22 14:31 General appearance: cooperative and no acute distress Head Head exam: Present atraumatic and normocephalic Eye Eye exam: Present EOMI and PERRL ENT ENT exam: Present mucous membranes moist, normal exam and normal external ear exam Neck Neck exam: Present normal inspection; Absent lymphadenopathy, tenderness or thyromegaly Respiratory Respiratory exam: Absent accessory muscle use, respiratory distress or wheezes Cardiovascular Cardiovascular exam: Present irregular rhythm; Absent JVD GI/Abdominal GI/Abdominal exam: Present normal bowel sounds and soft; Absent organomegaly or tenderness Extremities Exam Extremities exam: Present full ROM, normal capillary refill and normal inspection; Absent tenderness Neurological Exam Neurological exam: Present alert, CN II-XII intact and oriented X3; Absent motor sensory deficit Additional comments: Left hemiparesis Psychiatric Psychiatric exam: Present normal affect and normal mood; Absent anxious or depressed Skin Skin exam: Present dry and intact DATA Data Completed and Pending Labs: Labs from last 24 hours 01/09/22 01/09/22 01/09/22 14:13 14:13 14:12 WBC 6.3 RBC 4.42 Hgb 13.7 Hct 42.2 MCV 95.5 MCH 31.0 MCHC 32.5 RDW 12.5 Plt Count 225 MPV 11.1 H Immature Gran % (Auto) 0.5 Neut % (Auto) 53.8 Lymph % (Auto) 33.7 [place] % (Auto) 8.2 Eos % (Auto) 3.5 Baso % (Auto) 0.3 Lymph # (Auto) 2.13 [place] # (Auto) 0.52 Eos # (Auto) 0.22 Baso # (Auto) 0.02 Immature Gran # 0.03 Absolute Neutrophils 3.43 POC PT 15.3 H POC INR 1.3 H APTT 30.7 Sodium Potassium Chloride Carbon Dioxide Anion Gap BUN Creatinine GFR Calculation Glucose Calcium Total Bilirubin AST ALT Alkaline Phosphatase Total Protein Albumin Globulin Albumin/Globulin Ratio 01/09/22 14:12 WBC RBC Hgb Hct MCV MCH MCHC RDW Plt Count MPV Immature Gran % (Auto) Neut % (Auto) Lymph % (Auto) [place] % (Auto) Eos % (Auto) Baso % (Auto) Lymph # (Auto) [place] # (Auto) Eos # (Auto) Baso # (Auto) Immature Gran # Absolute Neutrophils POC PT POC INR APTT Sodium 135 Potassium 3.6 Chloride 99 Carbon Dioxide 23 Anion Gap 13.0 BUN 11 Creatinine 1.1 GFR Calculation 48 Glucose 75 Calcium 9.4 Total Bilirubin 0.6 AST 19 ALT 11 Alkaline Phosphatase 74 Total Protein 6.6 Albumin 4.0 Globulin 2.6 Albumin/Globulin Ratio 1.5 A/P Assessment and plan (1) Fall: Status: Acute (2) CHF (congestive heart failure): Status: Acute (3) CAD (coronary artery disease): Status: Acute (4) Systolic heart failure secondary to coronary artery disease: Status: Acute (5) Moderate major depression: Status: Acute (6) Atrial fibrillation with RVR: Status: Acute (7) GERD (gastroesophageal reflux disease): Status: Chronic (8) Hypothyroidism: Status: Chronic Qualifiers: Hypothyroidism type: acquired Qualified Code(s): E03.9 - Hypothyroidism, unspecified (9) Adenocarcinoma, colon: Status: Chronic (10) Chronic kidney disease (CKD), stage II (mild): Status: Chronic (11) Stroke: Status: Acute Narrative A/P Narrative: Assessment and Plans: 1. Accidental fall: Observation med surg [place] PRN moderate pain d/c Plavix and Eliquis Physical therapy 2. h/o stroke with resultant left hemiparesis: d/c Plavix and Eliquis Continue statin therapy Physical therapy 3. h/o atrial fibrillation: Continue Metoprolol ER as rate control d/c Eliquis due to fall 4. Essential HTN: Continue oral antihypertensives, currently normotensive 5. CKD II: Avoid nephrotoxic agents [place] lock Current kidney functions at baseline 6. Hypothyroidism: Continue thyroid replacement therapy 7. h/o systolic CHF: Continue Metoprolol ER Continue Aldactone Continue ARB 8. h/o CAD: Continue Metoprolol ER Continue statin therapy 9. h/o colon cancer: PCP follow up appointment for cancer surveillance GI ppx: continue oral PPI from home regimen DVT ppx: SCDs Code status: Full Prognosis: stable Disposition: observation med surg Time Spent With Patient Time: Total time spent is greater than 50% in coordination of care (as documented) at patient's floor/unit and/or counseling patient: Total time spent with greater than 50% in coordination of care (as documented) at patient's floor/unit and/or counseling patient:: 50 - 70 minutes
[2022-01-09] MEDS ORDERED: ALBUTEROL SULFATE 200 PUFF INHALER INH PRN (19:25)
[2022-01-09] MEDS ORDERED: ONDANSETRON 4 MG/2 ML VIAL IV PRN (19:25)
[2022-01-09] MEDS ORDERED: IPRATROPIUM/ALBUTEROL 3 ML AMPUL.NEB NEB PRN (19:25)
[2022-01-09] MEDS ORDERED: ACETAMINOPHEN 500 MG TABLET PO PRN (20:17)
[2022-01-09] MEDS ORDERED: SENNOSIDES 1 TABLET PO SCH (21:00)
[2022-01-09] MEDS ORDERED: TRAVOPROST OPHTH DROPS BOTTLE 2.5ML OU SCH (21:00)
[2022-01-09] MEDS ORDERED: ATORVASTATIN 40 MG TABLET PO SCH (21:00)
[2022-01-09] MEDS: DOCUSATE SODIUM 100 MG CAPSULE PO SCH (21:43)
[2022-01-09] MEDS: METOPROLOL SUCCINATE 25 MG TAB.XL.24H PO SCH (21:43)
[2022-01-09] MEDS: SUCRALFATE 1 GM TABLET PO SCH (21:44)
[2022-01-09] MEDS: Sacubitril-Valsartan 24-26 mg tablet PO SCH (21:44)
[2022-01-09] MEDS: 0.9 % SODIUM CHLORIDE 10 ML SYRINGE IV SCH (21:45)
[2022-01-09] MEDS: LIOTHYRONINE 5 MCG TABLET PO SCH ×2 (23:12→23:25)
[2022-01-09] MEDS: HYDROcodone/APAP 5/325MG TABLET PO PRN (23:24)
[2022-01-10] MEDS: HYDROcodone/APAP 5/325MG TABLET PO PRN (03:35)
[2022-01-10] MEDS: 0.9 % SODIUM CHLORIDE 10 ML SYRINGE IV SCH (05:11)
[2022-01-10] MEDS: SUCRALFATE 1 GM TABLET PO SCH ×2 (08:36→13:05)
[2022-01-10] MEDS: DOCUSATE SODIUM 100 MG CAPSULE PO SCH (08:37)
[2022-01-10] MEDS: METOPROLOL SUCCINATE 25 MG TAB.XL.24H PO SCH (08:37)
[2022-01-10] MEDS: Sacubitril-Valsartan 24-26 mg tablet PO SCH (08:37)
[2022-01-10] MEDS ORDERED: buPROPion 150 MG TAB.XL.24H PO SCH (09:00)
[2022-01-10] MEDS ORDERED: PANTOPRAZOLE 40 MG TABLET PO SCH (09:00)
[2022-01-10] MEDS ORDERED: SPIRONOLACTONE 25 MG TABLET PO SCH (09:00)
[2022-01-10] MEDS ORDERED: CITALOPRAM 20 MG TABLET PO SCH (09:00)
--- NOTE | 2022-01-10 09:13 | Discharge Summary ---
Discharge Provider Provider IMPORTANT FOLLOW-UP INFORMATION FOR PCP: Patient information: Note initiated : 01/10/22 at 9:10 am Service Date, if different from initiated Date: [] Patient: Marilyn Dunbar 76 y/o F admitted on 01/09/22 for fall. Chief Complaint: [] Date of admission: 01/09/22 19:17 Discharge date: 01/10/22 Primary care physician: Arabella Diaz Attending physician on admission: Erik Joiner Consults: 01/09/22 Consult to Physician [CONS] Stat Comment: Consulting Provider: Erik Joiner Reason For Exam: Physician to Consult Attending physician on discharge: Erik Joiner COURSE Hospital Course Hospital course: History of present illness: Ms. Dunbar is a 76 year old F history of stroke with resultant left he miparesis, CHF, CAD, atrial fibrillation's, colon cancer, stage II chronic kidney disease, hypertension, hypothyroidism, presenting with multiple falls. Patient had a history of ischemic stroke with resultant left hemiparesis in 2017. Patient also have a history of atrial fibrillation's. She is on Plavix and Eliquis. She fell at home and yesterday and then this morning. She did not pass out on both occasions she is claims that she lost her balance. She landed on her forehead this morning on her second fall. She was calling her PCP office for pain medication for headaches in preparations for her upcoming trip to [place] but she was instructed to come to our ED for further evaluations instead. Vital signs within normal limits. Labs also within normal limits. CT of the head did not show any acute intracranial pathologies. Whole-body imaging also did not show any other bone fractures or joint dislocations. Admission request was called for observation overnight. 01/10: R No major overnight event. Clinically stable. Decision made to discharge home with 2 week PCP appointment made for her. All questions were answered prior to patient being physically discharged. Discharge diagnosis: Accidental fall Time Spent with Patient Time attestation: Total time spent providing and/or coordinating discharge services: Time spent: Less than 30 minutes EXAM Constitutional Vitals: Temp Pulse Resp BP Pulse Ox 36.6 C 70 20 96/55 97 01/10/22 07:52 01/10/22 03:37 01/10/22 07:52 01/10/22 07:52 01/10/22 07:52 General appearance: cooperative and no acute distress Head Head exam: Present atraumatic and normocephalic Eye Eye exam: Present EOMI and PERRL ENT ENT exam: Present mucous membranes moist, normal exam and normal external ear exam Neck Neck exam: Present normal inspection; Absent lymphadenopathy, tenderness or thyromegaly Respiratory Respiratory exam: Absent accessory muscle use, respiratory distress or wheezes Cardiovascular Cardiovascular exam: Present irregular rhythm; Absent JVD GI/Abdominal GI/Abdominal exam: Present normal bowel sounds and soft; Absent organomegaly or tenderness Extremities Exam Extremities exam: Present full ROM, normal capillary refill and normal inspection; Absent tenderness Neurological Exam Neurological exam: Present alert, CN II-XII intact and oriented X3; Absent motor sensory deficit Additional comments: Left hemiparesis Psychiatric Psychiatric exam: Present normal affect and normal mood; Absent anxious or depressed Skin Skin exam: Present dry and intact Discharge Data Data Completed and Pending Labs on day of discharge: Labs from last 24 hours 01/09/22 01/09/22 01/09/22 14:13 14:13 14:12 WBC 6.3 RBC 4.42 Hgb 13.7 Hct 42.2 MCV 95.5 MCH 31.0 MCHC 32.5 RDW 12.5 Plt Count 225 MPV 11.1 H Immature Gran % (Auto) 0.5 Neut % (Auto) 53.8 Lymph % (Auto) 33.7 [place] % (Auto) 8.2 Eos % (Auto) 3.5 Baso % (Auto) 0.3 Lymph # (Auto) 2.13 [place] # (Auto) 0.52 Eos # (Auto) 0.22 Baso # (Auto) 0.02 Immature Gran # 0.03 Absolute Neutrophils 3.43 POC PT 15.3 H POC INR 1.3 H APTT 30.7 Sodium Potassium Chloride Carbon Dioxide Anion Gap BUN Creatinine GFR Calculation Glucose Calcium Total Bilirubin AST ALT Alkaline Phosphatase Total Protein Albumin Globulin Albumin/Globulin Ratio 01/09/22 14:12 WBC RBC Hgb Hct MCV MCH MCHC RDW Plt Count MPV Immature Gran % (Auto) Neut % (Auto) Lymph % (Auto) [place] % (Auto) Eos % (Auto) Baso % (Auto) Lymph # (Auto) [place] # (Auto) Eos # (Auto) Baso # (Auto) Immature Gran # Absolute Neutrophils POC PT POC INR APTT Sodium 135 Potassium 3.6 Chloride 99 Carbon Dioxide 23 Anion Gap 13.0 BUN 11 Creatinine 1.1 GFR Calculation 48 Glucose 75 Calcium 9.4 Total Bilirubin 0.6 AST 19 ALT 11 Alkaline Phosphatase 74 Total Protein 6.6 Albumin 4.0 Globulin 2.6 Albumin/Globulin Ratio 1.5 Discharge Plan Patient/Caregiver Discharge Instructions Activity: increase activity as tolerated Diet: Regular Diet Instructions: Fall Prevention for Older Adults (ED), Head Injury (ED) Prescriptions: New hydrocodone-acetaminophen 5-325 mg Tablet 1 tab PO Q4HP PRN (Reason: Per Pain Protocol) 3 Days Qty: 10 0RF Continued liothyronine 5 mcg tablet See Rx Instructions .ROUTE .COMPLEX Qty: 90 2RF Dose Instruction: TAKE ONE TABLET BY MOUTH AT BEDTIME DAILY Rx Instructions: TAKE ONE TABLET BY MOUTH AT BEDTIME DAILY bupropion HCl 150 mg tablet extended release 24 hr 150 mg PO DAILY Qty: 30 3RF Travatan Z 0.004 % drops 1 drp OPHTHALMIC QHS Qty: 5 6RF citalopram 40 mg tablet 40 mg PO QDAY Qty: 90 3RF metoprolol succinate 25 mg tablet extended release 24 hr 25 mg PO BID Qty: 180 3RF atorvastatin 80 mg tablet 80 mg PO QHS Qty: 90 1RF spironolactone 25 mg tablet 25 mg PO QDAY Qty: 30 3RF sacubitril-valsartan 24-26 mg tablet 1 tab PO BID 0RF nitroglycerin 0.4 mg tablet, sublingual 0.4 mg sublingual Q5-15M PRN (Reason: chest pain) Qty: 30 2RF Rx Instructions: do not exceed 3 doses per episode gabapentin 600 mg Tablet 600 mg PO QDAY 0RF baclofen 10 mg tablet 1 tab PO BIDP PRN (Reason: pain) 0RF pantoprazole 40 mg tablet,delayed release (DR/EC) 1 tab PO QDAY 0RF Discontinued clopidogrel [Plavix] 75 mg tablet 75 mg PO QDAY Qty: 90 3RF Eliquis 5 mg tablet 5 mg PO BID Qty: 180 0RF Follow Up Plan Follow up with: Arabella Diaz ARNP [Primary Care Provider] - Patient Disposition: Home, Self-Care Rehab Potential: Good I certify that the patient requires SNF services: No Overall status at discharge: patient is back to baseline Discharge Orders: Discharge Order (Routine); Ordered 01/10/22 Ordered By: Erik ROLAND VTE Deep Vein Thrombosis/Pulmonary Embolism Present on Admission: No
== END 2022-01-10 13:00 | disposition home or self-care (01) ==
LOC: ED 13:56 → MEDSUR 13:56
PROVIDERS: ADMIT Internal Medicine; ATTEND Internal Medicine

== ENCOUNTER 2024-11-14 19:58 | Inpatient (IN) ==
[2024-11-14] MEDS ORDERED: IOPAMIDOL 100 ML BOTTLE IV ONE (19:59)
[2024-11-14] MEDS: fentaNYL 100 MCG/2 ML VIAL IV ONE (20:25)
[2024-11-14] MEDS: ONDANSETRON 4 MG/2 ML VIAL IV ONE (20:26)
[2024-11-14 20:53] LABS: Basophils # (Auto) 0.02 K/mcL (0.00-0.30); Basophils % (Auto) 0.2 % (0.0-2.0); Eosinophils # (Auto) 0.06 K/mcL (0.00-0.70); Eosinophils % (Auto) 0.5 % (0.0-7.0); Hematocrit 37.6 % (34.1-44.9); Hemoglobin 11.7 g/dL (11.2-15.7); Lymphocytes # (Auto) 1.59 K/mcL (1.50-4.80); Lymphocytes % (Auto) 12.8 % (15.5-49.0); Mean Cell Volume 98.4 fL (80.0-100.0); Mean Corpuscular HGB Conc 31.1 g/dL (31.0-36.0); Mean Platelet Volume 10.9 fL (8.8-12.5); Monocytes # (Auto) 0.58 K/mcL (0.10-0.90); Monocytes % (Auto) 4.7 % (1.0-12.0); Neutrophils % (Auto) 81.7 % (38.0-78.0); Platelet Count 217 K/mcL (140-440); RBC 3.82 M/mcL (3.59-5.38); WBC 12.4 K/mcL (4.5-11.0)
[2024-11-14 20:58] LABS: Prothrombin Time 14.3 sec (11.9-14.5)
[2024-11-14 21:05] LABS: ALT/SGPT 15 U/L (<40); AST/SGOT 21 U/L (<32); Albumin 3.6 gm/dL (3.2-5.2); Albumin/Globulin Ratio 1.4 (1.0-2.3); Alcohol, Blood < 10.1 mg/dL; Alcohol,Blood < 0.010 gm/dL (<0.010); Alkaline Phosphatase 79 U/L (39-117); Bilirubin,Total 0.3 mg/dL (0.1-1.0); Blood Urea Nitrogen 22 mg/dL (8-23); Calcium 8.8 mg/dL (8.6-10.4); Carbon Dioxide 24 mmol/L (22-30); Chloride 104 mmol/L (96-108); Globulin 2.5 gm/dL (2.2-3.7); Glomerular Filtration Rate 43; Glucose 95 mg/dL (70-105); Potassium 4.8 mmol/L (3.3-5.1); Sodium 139 mmol/L (133-145)
[2024-11-15] MEDS ORDERED: IPRATROPIUM/ALBUTEROL 3 ML AMPUL.NEB NEB PRN (00:02)
[2024-11-15] MEDS ORDERED: MAG HYDROX/AL HYDROX/SIMETH 30 ML ORAL.SUSP PO PRN (00:02)
[2024-11-15] MEDS: MELATONIN 3 MG TABLET PO SCH (00:10)
[2024-11-15] MEDS: LACTATED RINGERS 1,000 ML IV SCH (00:10)
[2024-11-15] MEDS: morphine 4 MG/ML VIAL IV PRN (00:10)
[2024-11-15] MEDS: CYCLOBENZAPRINE 10 MG TABLET PO PRN ×2 (00:21→07:57)
[2024-11-15] MEDS: MELATONIN 3 MG TABLET PO ONE (01:31)
[2024-11-15] MEDS: morphine 4 MG/ML VIAL ONE ×2 (01:31→06:06)
[2024-11-15] MEDS: 0.9 % SODIUM CHLORIDE 10 ML SYRINGE IV SCH (04:14)
[2024-11-15 07:14] LABS: Basophils # (Auto) 0.01 K/mcL (0.00-0.30); Basophils % (Auto) 0.1 % (0.0-2.0); Eosinophils # (Auto) 0 K/mcL (0.00-0.70); Eosinophils % (Auto) 0 % (0.0-7.0); Hemoglobin 11.6 g/dL (11.2-15.7); Lymphocytes # (Auto) 1.85 K/mcL (1.50-4.80); Lymphocytes % (Auto) 15.7 % (15.5-49.0); Mean Cell Volume 101.8 fL (80.0-100.0); Mean Corpuscular HGB Conc 29.7 g/dL (31.0-36.0); Mean Platelet Volume 11.4 fL (8.8-12.5); Monocytes # (Auto) 0.87 K/mcL (0.10-0.90); Monocytes % (Auto) 7.4 % (1.0-12.0); Neutrophils % (Auto) 76.6 % (38.0-78.0); Platelet Count 208 K/mcL (140-440); RBC 3.83 M/mcL (3.59-5.38); Red Cell Distribution Width 13.2 % (11.5-14.5); WBC 11.8 K/mcL (4.5-11.0)
[2024-11-15 07:46] LABS: Blood Urea Nitrogen 20 mg/dL (8-23); Calcium 8.6 mg/dL (8.6-10.4); Carbon Dioxide 20 mmol/L (22-30); Chloride 105 mmol/L (96-108); Glomerular Filtration Rate 53; Glucose 95 mg/dL (70-105); Potassium 4.9 mmol/L (3.3-5.1); Sodium 137 mmol/L (133-145)
[2024-11-15] MEDS: HYDROcodone/APAP 5/325MG TABLET PO PRN (07:56)
[2024-11-15] MEDS: PANTOPRAZOLE 40 MG TABLET PO SCH (07:57)
[2024-11-15] MEDS: buPROPion 150 MG TAB.XL.24H PO SCH (09:50)
[2024-11-15] MEDS: GABAPENTIN 300 MG CAPSULE PO SCH (09:50)
[2024-11-15] MEDS: ONDANSETRON 4 MG/2 ML VIAL IV PRN (09:50)
[2024-11-15] MEDS: CITALOPRAM 20 MG TABLET PO SCH (09:50)
[2024-11-15] MEDS: POLYETHYLENE GLYCOL 3350 17 GM PACKET PO SCH (09:50)
[2024-11-15] MEDS: busPIRone 5 MG TABLET PO SCH (09:50)
[2024-11-15] MEDS: METOPROLOL SUCCINATE 25 MG TAB.XL.24H PO SCH (09:50)
[2024-11-15] MEDS: Sacubitril-Valsartan [Entresto] 24-26 mg tablet PO SCH (10:53)
[2024-11-15] MEDS: HEPARIN 5,000 UNIT/ML VIAL SQ SCH (10:53)
[2024-11-15] MEDS: ACETAMINOPHEN 325 MG TABLET PO PRN (10:58)
[2024-11-15] MEDS ORDERED: NALOXONE HCL 0.4 MG/ML VIAL IV PRN (11:52)
[2024-11-15] MEDS ORDERED: oxyCODONE/APAP 5/325MG TABLET PO PRN (19:48)
[2024-11-15] MEDS: ceFAZolin 1 GM VIAL ONE (21:46)
[2024-11-15] MEDS: SENNOSIDES 1 TABLET PO SCH (21:47)
[2024-11-15] MEDS: ATORVASTATIN 40 MG TABLET PO SCH (21:47)
[2024-11-15] MEDS: LIOTHYRONINE 5 MCG TABLET PO SCH (21:47)
[2024-11-15] MEDS: TRAVOPROST OPHTH DROPS BOTTLE 2.5ML OU SCH (21:48)
[2024-11-16] MEDS: oxyCODONE IR 5 MG TABLET PO PRN (02:03)
[2024-11-16] MEDS: morphine 4 MG/ML VIAL IV PRN (04:20)
[2024-11-16] MEDS: ceFAZolin 1 GM VIAL ONE (05:25)
[2024-11-16] MEDS: ceFAZolin 2 GM in DEXTROSE 5% IN WATER 50 ML IV SCH ×2 (05:25→16:22)
[2024-11-16 07:27] LABS: Basophils # (Auto) 0.02 K/mcL (0.00-0.30); Basophils % (Auto) 0.3 % (0.0-2.0); Blood Urea Nitrogen 14 mg/dL (8-23); Calcium 8.3 mg/dL (8.6-10.4); Carbon Dioxide 26 mmol/L (22-30); Chloride 105 mmol/L (96-108); Eosinophils # (Auto) 0.07 K/mcL (0.00-0.70); Eosinophils % (Auto) 1.1 % (0.0-7.0); Glomerular Filtration Rate 61; Glucose 79 mg/dL (70-105); Hematocrit 31.2 % (34.1-44.9); Hemoglobin 9.6 g/dL (11.2-15.7); Mean Cell Volume 99.7 fL (80.0-100.0); Mean Corpuscular HGB Conc 30.8 g/dL (31.0-36.0); Mean Platelet Volume 10.9 fL (8.8-12.5); Monocytes # (Auto) 0.62 K/mcL (0.10-0.90); Monocytes % (Auto) 9.6 % (1.0-12.0); Platelet Count 162 K/mcL (140-440); Potassium 4.2 mmol/L (3.3-5.1); RBC 3.13 M/mcL (3.59-5.38); Red Cell Distribution Width 13.2 % (11.5-14.5); Sodium 138 mmol/L (133-145); WBC 6.5 K/mcL (4.5-11.0)
[2024-11-16] MEDS: SPIRONOLACTONE 25 MG TABLET PO SCH (09:17)
[2024-11-16] MEDS ORDERED: BENZOCAINE/MENTHOL 1 LOZENGE PO PRN (16:47)
[2024-11-16] MEDS ORDERED: HYDROmorphone 1 MG/ML SYRINGE IV PRN (16:47)
[2024-11-16] MEDS ORDERED: ACETAMINOPHEN 325 MG TABLET PO PRN (16:47)
[2024-11-16] MEDS ORDERED: MAGNESIUM HYDROXIDE 30 ML ORAL.SUSP PO PRN (16:47)
[2024-11-16] MEDS ORDERED: ONDANSETRON 4 MG/2 ML VIAL IV PRN (16:47)
[2024-11-16] MEDS ORDERED: TEMAZEPAM 15 MG CAPSULE PO PRN (16:47)
[2024-11-16] MEDS ORDERED: KETAMINE 50 MG/ML Syringe IV ONE (17:28)
[2024-11-16] MEDS ORDERED: PHENYLephrine 1 MG/10 ML SYRINGE (ANEST) ONE ×2 (17:48→18:16)
[2024-11-16] MEDS ORDERED: ePHEDrine 50 MG/5 ML SYRINGE (ANEST) IV ONE ×2 (17:48→18:16)
[2024-11-16] MEDS ORDERED: HYDROmorphone 0.5 MG/0.5 ML SYRINGE ONE ×2 (17:56→18:01)
[2024-11-16] MEDS ORDERED: DEXAMETHASONE 10 MG/ML VIAL ONE (18:16)
[2024-11-16] MEDS ORDERED: ONDANSETRON 4 MG/2 ML VIAL ONE (18:16)
[2024-11-16] MEDS ORDERED: METOCLOPRAMIDE 10 MG/2 ML VIAL ONE (18:16)
[2024-11-16] MEDS ORDERED: FAMOTIDINE/PF 20 MG/2 ML VIAL IV ONE (18:16)
[2024-11-16] MEDS ORDERED: TRANEXAMIC ACID 1,000 MG/10 ML VIAL ONE (18:16)
[2024-11-16] MEDS ORDERED: LIDOCAINE 2% PF 5 ML VIAL ONE (18:16)
[2024-11-16] MEDS ORDERED: IPRATROPIUM/ALBUTEROL 3 ML AMPUL.NEB NEB PRN (18:18)
[2024-11-16] MEDS ORDERED: fentaNYL 100 MCG/2 ML VIAL IV PRN (18:18)
[2024-11-16] MEDS ORDERED: HYDROmorphone 0.5 MG/0.5 ML SYRINGE IV PRN (18:18)
[2024-11-16] MEDS ORDERED: ROPIVACAINE HCL/PF 30 ML VIAL IJ ONE (18:19)
[2024-11-16] MEDS: TRANEXAMIC ACID 1,000 MG/10 ML VIAL IV SCH (18:50)
[2024-11-16] MEDS ORDERED: NITROGLYCERIN 0.4 MG TAB.SUBL SL PRN (19:18)
[2024-11-16] MEDS: ALBUMIN HUMAN 12.5 GM/50 ML VIAL IV ONE (19:30)
[2024-11-16] MEDS: 0.9 % SODIUM CHLORIDE 1,000 ML IV SCH (21:00)
[2024-11-16] MEDS: ASPIRIN 81 MG TAB.CHEW CHEWED SCH (22:30)
[2024-11-16] MEDS: DOCUSATE SODIUM 100 MG CAPSULE PO SCH (22:30)
[2024-11-16] MEDS: 0.9 % SODIUM CHLORIDE 10 ML SYRINGE IV SCH (22:40)
[2024-11-17] MEDS: HYDROcodone/APAP 10/325MG TABLET PO PRN (02:00)
[2024-11-17] MEDS: ceFAZolin 1 GM VIAL IV SCH (02:00)
[2024-11-17] MEDS: LACTATED RINGERS 1,000 ML IV SCH (04:09)
[2024-11-17 06:47] LABS: Basophils # (Auto) 0.01 K/mcL (0.00-0.30); Basophils % (Auto) 0.1 % (0.0-2.0); Eosinophils # (Auto) 0 K/mcL (0.00-0.70); Eosinophils % (Auto) 0 % (0.0-7.0); Hematocrit 26.9 % (34.1-44.9); Hemoglobin 7.8 g/dL (11.2-15.7); Lymphocytes # (Auto) 0.55 K/mcL (1.50-4.80); Lymphocytes % (Auto) 7.6 % (15.5-49.0); Mean Cell Volume 106.3 fL (80.0-100.0); Mean Platelet Volume 11.4 fL (8.8-12.5); Monocytes # (Auto) 0.42 K/mcL (0.10-0.90); Monocytes % (Auto) 5.8 % (1.0-12.0); Neutrophils % (Auto) 86.4 % (38.0-78.0); Platelet Count 150 K/mcL (140-440); RBC 2.53 M/mcL (3.59-5.38); WBC 7.2 K/mcL (4.5-11.0)
[2024-11-17 07:10] LABS: Blood Urea Nitrogen 16 mg/dL (8-23); Carbon Dioxide 20 mmol/L (22-30); Chloride 103 mmol/L (96-108); Glomerular Filtration Rate 70; Glucose 110 mg/dL (70-105); Potassium 4.6 mmol/L (3.3-5.1); Sodium 134 mmol/L (133-145)
[2024-11-17] MEDS: KETOROLAC 15 MG/ML VIAL IV PRN (12:40)
[2024-11-17] MEDS ORDERED: PATIENTS OWN MEDICATION 1 DOSE MISCELL PO SCH (13:09)
[2024-11-17 18:00] LABS: Hematocrit 28.6 % (34.1-44.9); Hemoglobin 7.8 g/dL (11.2-15.7)
[2024-11-17] MEDS: Sacubitril-Valsartan [Entresto] 24-26 mg tablet PO SCH (21:32)
[2024-11-18 07:17] LABS: Blood Urea Nitrogen 17 mg/dL (8-23); Carbon Dioxide 21 mmol/L (22-30); Chloride 104 mmol/L (96-108); Glomerular Filtration Rate 70; Glucose 91 mg/dL (70-105); Potassium 3.9 mmol/L (3.3-5.1); Sodium 133 mmol/L (133-145)
[2024-11-18 07:36] LABS: Basophils # (Auto) 0.02 K/mcL (0.00-0.30); Basophils % (Auto) 0.3 % (0.0-2.0); Eosinophils # (Auto) 0.02 K/mcL (0.00-0.70); Eosinophils % (Auto) 0.3 % (0.0-7.0); Lymphocytes # (Auto) 0.99 K/mcL (1.50-4.80); Lymphocytes % (Auto) 15.5 % (15.5-49.0); Mean Cell Volume 101.3 fL (80.0-100.0); Mean Corpuscular HGB Conc 30.4 g/dL (31.0-36.0); Mean Platelet Volume 11.2 fL (8.8-12.5); Monocytes # (Auto) 0.71 K/mcL (0.10-0.90); Monocytes % (Auto) 11.1 % (1.0-12.0); Neutrophils % (Auto) 72.5 % (38.0-78.0); Platelet Count 160 K/mcL (140-440); RBC 2.27 M/mcL (3.59-5.38); Red Cell Distribution Width 13.3 % (11.5-14.5); WBC 6.4 K/mcL (4.5-11.0)
[2024-11-18] MEDS ORDERED: oxyCODONE IR 5 MG TABLET PO PRN (08:27)
[2024-11-18] MEDS ORDERED: HYDROmorphone 1 MG/ML SYRINGE IV PRN (08:30)
[2024-11-18] MEDS: ACETAMINOPHEN 1,000 MG/100 ML BAG IV SCH (09:33)
[2024-11-18] MEDS: 0.9 % SODIUM CHLORIDE 250 ML IV SCH (10:54)
[2024-11-18 17:57] LABS: Hematocrit 35.3 % (34.1-44.9); Hemoglobin 9.7 g/dL (11.2-15.7)
[2024-11-18] MEDS: oxyCODONE IR 5 MG TABLET PO PRN (20:48)
[2024-11-19 06:24] LABS: Basophils # (Auto) 0.01 K/mcL (0.00-0.30); Basophils % (Auto) 0.2 % (0.0-2.0); Eosinophils # (Auto) 0.07 K/mcL (0.00-0.70); Eosinophils % (Auto) 1.4 % (0.0-7.0); Hematocrit 28.4 % (34.1-44.9); Hemoglobin 8.3 g/dL (11.2-15.7); Lymphocytes # (Auto) 1.02 K/mcL (1.50-4.80); Lymphocytes % (Auto) 19.8 % (15.5-49.0); Mean Cell Volume 102.9 fL (80.0-100.0); Mean Corpuscular HGB Conc 29.2 g/dL (31.0-36.0); Monocytes # (Auto) 0.69 K/mcL (0.10-0.90); Monocytes % (Auto) 13.4 % (1.0-12.0); Platelet Count 177 K/mcL (140-440); RBC 2.76 M/mcL (3.59-5.38); Red Cell Distribution Width 15.2 % (11.5-14.5); WBC 5.2 K/mcL (4.5-11.0)
[2024-11-19 07:19] LABS: Blood Urea Nitrogen 15 mg/dL (8-23); Calcium 7.8 mg/dL (8.6-10.4); Carbon Dioxide 22 mmol/L (22-30); Chloride 106 mmol/L (96-108); Glomerular Filtration Rate 82; Glucose 81 mg/dL (70-105); Iron 18 ug/dL (37-145); Sodium 135 mmol/L (133-145); TIBC Calculation 186 ug/dl (228-428); Transferrin % Saturation 10 % (15-50)
[2024-11-20 07:09] LABS: Blood Urea Nitrogen 15 mg/dL (8-23); Calcium 8.3 mg/dL (8.6-10.4); Carbon Dioxide 26 mmol/L (22-30); Chloride 106 mmol/L (96-108); Glomerular Filtration Rate 70; Glucose 81 mg/dL (70-105); Potassium 3.7 mmol/L (3.3-5.1); Sodium 140 mmol/L (133-145)
[2024-11-20 11:55] VITALS: TEMP 98.6
[2024-11-20 13:31] VITALS: O2SAT 92
== END 2024-11-20 14:23 | DRG 522 ==
LOC: ED 19:58 → MEDSUR 23:58 → ICU 11-16 20:46 → MEDSUR 11-19 23:05
PROVIDERS: ADMIT Student in an Organized Health Care Education/Training Program; ATTEND Internal Medicine
PROC: HEMIHIP (2024-11-16 17:35)